=== PATIENT | female | born 1930 | race Caucasian/White ===

== ENCOUNTER 2017-02-05 07:16 | Inpatient (IN) | payer MEDICARE ==
--- NOTE | 2017-01-30 11:13 | HP ---
HISTORY AND PHYSICAL: DATE OF OFFICE VISIT: 01/25/17 DATE OF SURGERY: 02/05/17 SURGEON: Gabby Moon MD. PROCEDURE: Right total knee arthroplasty. CHIEF COMPLAINT: Right knee pain. HISTORY OF PRESENT ILLNESS: Ms. Kyle is an 86-year-old female with complaints of right knee pain. She has failed conservative management and has elected to proceed with a right total knee arthroplasty, which is scheduled for 02/05/[address] Moon. PAST MEDICAL HISTORY: Hypertension and breast cancer. PAST SURGICAL HISTORY: Lumpectomy, cataract removal, urethral stricture surgery , nose surgery, and pyeloplasty. CURRENT MEDICATIONS: 1. Hydrochlorothiazide 12.5 mg every day. 2. Amlodipine 5 mg once a day. 3. Fluticasone propionate nasal spray. 4. Sertraline 50 mg. 5. Multivitamin. 6. Calcium plus vitamin D. 7. PreserVision. 8. Extra Strength Tylenol. 9. Vitamin prn 10. Refresh. 11. Fish oil. 12. L-lysine. 13. Symbicort. 14. Tussin. 15. Bactrim DS. 16. Levocetirizine dihydrochloride 5 mg once a day. ALLERGIES: ASPIRIN, CODEINE, and LISINOPRIL. CODEINE causes nausea. FAMILY HISTORY: Hypertension and cancer. SOCIAL HISTORY: She is an 86-year-old female. She lives alone in a residential house. She does not smoke, use drugs or alcohol. REVIEW OF SYSTEMS: A complete 14-point review of systems was reviewed with the patient, was all negative. PHYSICAL EXAMINATION GENERAL: She is a well developed, well nourished, in no acute distress. She is alert and oriented x3. VITAL SIGNS: She stands 5 feet 6 inches tall, weighs 155 pounds, her blood pressure is 140/88, heart rate 72. HEENT: Normocephalic, atraumatic. NECK: Supple. No palpable lymph nodes. PULMONARY: The lungs are clear to auscultation bilaterally. CARDIO: Regular rate and rhythm. Strong S1 and S2. ABDOMEN: Soft, nontender, nondistended. MUSCULOSKELETAL: Right lower extremity, the skin is intact. There are no open wounds or abrasions. There is a moderate joint effusion. Tenderness over the medial and lateral joint line. 10 to 120 degrees of flexion. Her lower extremity muscle group strengths are intact at 5/5. She has 2+ dorsalis pedis pulses and intact sensation. NEUROLOGIC: Cranial nerves II through XII are intact. ASSESSMENT AND PLAN: Ms. Kyle is an 86-year-old female with complaints of right knee pain. She has failed conservative management and has elected to proceed with a right total knee arthroplasty, which is scheduled for 02/05/[address] Moon discussed the risks and benefits of the surgery at today's visit and all of her questions were answered. She will follow up with Dr. Moon 2 weeks after the surgery. SU RIVERA [id number]/[facility] #: [id number] MTDD
[~2017-02-05 07:16] MED LIST: Buffered Lidocaine 0.9% SYRIN* 5 ML/SYR SYRINGE INTRADERM ONE; Buffered Lidocaine 0.9% SYRIN* 5 ML/SYR SYRINGE ONE; Famotidine IV* 10 MG/ML 2 ML (20 mg) IV ONE; Famotidine IV* 10 MG/ML 2 ML (20 mg) ONE; Levalbuterol 0.63MG/3ML NEB INH ONE; Levalbuterol 1.25MG/0.5ML NEB ONE; NS 0.9% 1000 ML* 1,000 ML IV SCH; ceFAZolin 2 GM PREMIX(*) 2 GM/50 ML BAG IVPB ONE
[2017-02-05] MEDS ORDERED: Morphine PF AMP (0.5MG/ML)* 5 MG/10 ML AMP ONE (07:46)
[2017-02-05] MEDS ORDERED: Bupivacaine 0.5% SDV PF* 30 ML VIAL ONE ×2 (07:46→10:42)
[2017-02-05] MEDS ORDERED: Dexamethasone IV* 4 MG/ML 1 ML (4 MG) ONE (07:46)
[2017-02-05] MEDS ORDERED: KETAMINE HCL* 50 MG/ML 10 ML VIAL ONE (07:46)
[2017-02-05] MEDS ORDERED: Ondansetron INJ* 2 MG/ML VIAL ONE (07:46)
[2017-02-05] MEDS ORDERED: fentaNYL* 50 MCG/ML 2 ML VIAL (100 MCG VIAL) ONE ×2 (07:46→10:14)
[2017-02-05] MEDS ORDERED: Propofol* 10 MG/ML 20 ML BTL IV PUSH ONE (07:46)
[2017-02-05] MEDS ORDERED: Midazolam* 1 MG/ML 5 ML VIAL (5 MG) ONE (07:46)
[2017-02-05] MEDS ORDERED: Lidocaine 2% PF * 5 ML VIAL ONE ×2 (07:46→09:03)
[2017-02-05] MEDS ORDERED: Ketorolac INJ* 30 MG/ML 1 ML VIAL ONE (07:46)
[2017-02-05] MEDS ORDERED: ROPIVACAINE 5 MG/ML 30 ML BTL (0.5%) ONE (09:03)
[2017-02-05] MEDS ORDERED: EPHEDrine (Pressors)* 50 MG/ML VIAL ONE (10:05)
[2017-02-05] MEDS ORDERED: Morphine INJ* 2 MG/ML 1 ML SYRINGE IV PRN (11:00)
[2017-02-05] MEDS ORDERED: Acetaminophen TAB* 325 MG PO PRN (11:00)
[2017-02-05] MEDS ORDERED: Ondansetron INJ* 2 MG/ML VIAL IV PRN (11:00)
[2017-02-05] MEDS ORDERED: Bisacodyl SUPP* 10 MG SUPP PR PRN (11:00)
[2017-02-05] MEDS ORDERED: diPHENhydraMINE IV* 50 MG/ML 1 ml VIAL (BENADRYL) IV PRN (11:00)
[2017-02-05] MEDS ORDERED: Polyethylene Glycol 3350* 17 GM PACKET PO PRN (11:00)
[2017-02-05] MEDS ORDERED: HYDROmorphone* 1 MG/ML 1 ML SYR IV PRN (11:04)
[2017-02-05] MEDS ORDERED: fentaNYL* 50 MCG/ML 2 ML VIAL (100 MCG VIAL) IV PRN (11:04)
[2017-02-05] MEDS ORDERED: DiMENhydriNATE IV* 50 MG/ML VIAL IV PUSH PRN (11:04)
[2017-02-05] MEDS ORDERED: HYDROmorphone* 1 MG/ML 1 ML SYR ONE (11:06)
--- NOTE | 2017-02-05 14:14 | RAD ---
Indication: Right knee arthroplasty. 2 views of the right knee demonstrates bipolar knee arthroplasty in satisfactory position. No loosening is noted. IMPRESSION: Right knee arthroplasty in satisfactory position.
[2017-02-05] MEDS: oxyCODONE/Acetamin 5/325 MG* TAB PO PRN (14:36)
[2017-02-05] MEDS: NS 0.9% 1000 ML* 1,000 ML IV SCH (14:40)
[2017-02-05] MEDS ORDERED: Warfarin TAB(*) 6 MG PO ONE (17:00)
--- NOTE | 2017-02-05 17:18 | CONS ---
[facility] MEDICINE CONSULTATION REPORT: DATE OF CONSULT: 02/05/17 ATTENDING PHYSICIAN: Dr. Gabby Moon. CONSULTING PHYSICIAN: Dr. Moncho Brunner (dictation provided by Pauline Hubbard NP). REASON FOR CONSULT: Medical co-management in patient admitted for a right total knee arthroplasty. HISTORY OF PRESENT ILLNESS: Ms. Kyle is an 86-year-old female with a past medical history of right knee pain with hypertension and breast cancer, who presented to the hospital today for a planned right total knee arthroplasty with Dr. Moon. Please see the dictated H and P from the orthopedic team for complete details. In brief, the patient had failed conservative treatment and had opted for surgical intervention today. Ms. Kyle states that prior to coming into surgery, she was feeling well with no acute complaints. PAST MEDICAL HISTORY: 1. Hypertension. 2. Breast cancer. PAST SURGICAL HISTORY: 1. History of lumpectomy. 2. Cataract removal. 3. Urethral stricture surgery. 4. Nose surgery. 5. Pyeloplasty. CURRENT MEDICATIONS: 1. Hydrochlorothiazide 12.5 mg p.o. every day. 2. Amlodipine 5 mg p.o. daily. 3. Fluticasone nasal spray daily. 4. Sertraline 50 mg p.o. daily. 5. Multivitamin daily. 6. Calcium with vitamin D daily. 7. PreserVision daily. 8. Extra Strength Tylenol p.r.n. 9. Refresh Tears p.r.n. 10. Fish oil daily. 11. L-lysine daily. 12. Symbicort daily. ALLERGIES: To ASPIRIN, CODEINE, and LISINOPRIL. FAMILY HISTORY: The patient reports her mother at 96 of old age and father a little younger than that and I believe that it was related to cancer, although there was no clear diagnosis. SOCIAL HISTORY: The patient lives alone. She has no report of alcohol, tobacco , or drug use. She states that her brother will be the healthcare proxy. REVIEW OF SYSTEMS: A 14-point review of systems was completed with Ms. Kyle and all those not mentioned above were negative. PHYSICAL EXAM: Vital Signs: Temperature 97.5, heart rate 71, respiratory rate 16, O2 saturation 100% on 2 L nasal cannula, blood pressure 160/79. General: Ms. Kyle is lying in bed. She is in no acute distress. Neuro: She is alert, she is oriented x3. She moves all extremities equally. There is no facial asymmetry or focal weakness. Extraocular movements are intact. Heart: S1, S2. No murmur, rub, or gallop, and regular. Lungs are clear to auscultation bilaterally with no accessory muscle use and good aeration. Abdomen: Soft and nontender with bowel sounds positive x4. Extremities: No cyanosis or edema. Skin is intact. LABORATORY DATA: Preoperatively, WBC 4.9, hemoglobin 12.1, hematocrit 36, platelet count 233. Sodium 127, potassium 3.6, chloride 90, serum bicarbonate 31, BUN 16, creatinine 0.79, glucose 104. ASSESSMENT AND PLAN: Ms. Kyle is an 86-year-old female with past medical history of hypertension and breast cancer, who presents today to the hospital for right total knee arthroplasty. Our plans are as follows: 1. Right total knee arthroplasty: Plan is for management per orthopedic services. The patient will have pain medication p.r.n. with a bowel regimen, she will be followed by Physical and Occupational Therapy, and finally we will monitor H and H closely. 2. Hypertension: Plan to continue the patient's home medications of amlodipine and hydrochlorothiazide as her blood pressure has been running systolically 140s to 160s since arrival to the PACU. 3. DVT prophylaxis: With Lovenox or warfarin per Ortho. 4. Disposition: Will be per Ortho. TIME SPENT: Approximately 60 minutes was spent in consultation of this patient , more than half the time spent with the patient at the bedside reviewing the events leading up to this hospitalization, performing the physical examination, and reviewing the plan of care. PAULINE HUBBARD NP [id number]/[facility] #: [id number] ARIANE
[2017-02-05] MEDS: amLODIPine TAB* 5 MG PO SCH (17:57)
[2017-02-05] MEDS: Cetirizine* 10 MG TAB PO SCH (17:57)
[2017-02-05] MEDS: ceFAZolin VIAL(*) 1 GM in NS 0.9% 50 ML* 50 ML IVPB SCH (17:58)
[2017-02-05] MEDS: Mometasone/Formoter 200/5 MDI INH SCH (20:30)
[2017-02-05] MEDS: Sertraline* 25 MG TAB PO SCH (21:15)
[2017-02-05] MEDS: Docusate CAP* 100 MG PO SCH (21:15)
[2017-02-06] MEDS: ceFAZolin VIAL(*) 1 GM in NS 0.9% 50 ML* 50 ML IVPB SCH ×2 (02:07→10:37)
[2017-02-06] MEDS: oxyCODONE/Acetamin 5/325 MG* TAB PO PRN ×4 (04:40→17:00)
[2017-02-06] MEDS: NS 0.9% 1000 ML* 1,000 ML IV SCH (05:10)
[2017-02-06 05:31] LABS: Hematocrit 28 % (35-47); Hemoglobin 9.5 g/dl (12.0-16.0)
[2017-02-06 05:46] LABS: BUN/Creatinine Ratio 19.1 (8-20); Calcium 8.7 mg/dL (8.6-10.3); EGFR African American 77.5 (>60); EGFR Non-African American 60.3 (>60)
--- NOTE | 2017-02-06 07:35 | PN ---
Progress Note - Progress Note Date of Service: 02/06/17 SOAP: Subjective: Pt. is alert, reports pain is controlled. Objective: RLE - drain removed, tip intact, 300 cc ss drainage. distal dressing saturated with serosanginous drainage so dressing changed. mod effusion. active bleeding from drain site. distal incision with some drainage. distally nvi with +df/pf, full sens lt. Vital Signs: Temp Pulse Resp BP Pulse Ox 98.2 F 77 18 136/68 100 02/06/17 03:28 02/06/17 03:28 02/06/17 05:47 02/06/17 03:28 02/06/17 03:28 Laboratory Results - last 24 hr 02/06/17 02/06/17 02/06/17 05:19 05:19 05:19 Hgb 9.5 L Hct 28 L INR (Anticoag Therapy) 0.99 Sodium 130 L Potassium 3.0 L Chloride 96 L Carbon Dioxide 28 Anion Gap 6 BUN 17 Creatinine 0.89 Est GFR ( Amer) 77.5 Est GFR (Non-Af Amer) 60.3 BUN/Creatinine Ratio 19.1 Glucose 107 H Calcium 8.7 Assessment: 86 yo F pod 1 s/p RTKA Plan: hold lovenox for now. 8 mg coumadin tonight. replaced K with kcl 20meg tid for 2 days pt/ot wbat rle xrays satisfactory
[2017-02-06] MEDS: oxyCODONE TAB* 5 MG TAB PO PRN ×3 (08:09→19:34)
[2017-02-06] MEDS: Potassium Chlor TAB* 20 MEQ TAB.ER PO SCH ×3 (08:53→20:13)
[2017-02-06] MEDS: Mometasone/Formoter 200/5 MDI INH SCH ×2 (08:53→20:48)
[2017-02-06] MEDS: Magnesium Hydroxide LIQ* 30 ML UDC PO PRN (08:53)
[2017-02-06] MEDS: Docusate CAP* 100 MG PO SCH ×2 (08:53→20:13)
[2017-02-06 09:23] LABS: Magnesium 1.8 mg/dL (1.9-2.7)
[2017-02-06] MEDS ORDERED: Enoxaparin(*) 30 MG/0.3 ML SYR SUBCUT SCH (11:00)
[2017-02-06] MEDS ORDERED: Magnesium Sulfate 2 GM IV* 2 GM/50 ML BAG IVPB ONE (11:56)
--- NOTE | 2017-02-06 11:58 | OP ---
OPERATIVE REPORT: DATE OF OPERATION: 02/05/17 DATE OF : 32 SURGEON: Gabby Moon MD OFFICE MACHINE PUNCH OPERATOR: SU Fish Ms. Chen did help throughout the procedure with preparation of the leg, wound retraction, manipula tion of the knee and wound closure. ANESTHESIOLOGIST: Dr. Ochoa. ANESTHESIA: General with adductor nerve block. 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 OPERATIVE PROCEDURE: Right total knee arthroplasty. COMPLICATIONS: None. TOURNIQUET TIME: 45 minutes. ESTIMATED BLOOD LOSS: 300 cc. SPECIMEN: Bone and cartilage from the right knee joint sent to pathology. HARDWARE USED: This is [employer] cemented total knee arthroplasty hardware. Two packages of simplex bone cement were used. For the femur, a right narrow size 6 posterior stabilized Legion fem oral component. For the tibia, a size 5 right Ena II tibial baseplate. For the insert, a 9-mm posterior stabilized articular insert, size 5/6. For the patella, a 35-mm, 7.5 thickness 3 peg all poly patella. BRIEF HISTORY/INDICATIONS: Ms. Kyle is an 86-year-old female with years of increasingly severe right knee pain and valgus deformity. She failed conservative treatment with antiinflammatories, pa in medications, ambulatory assistive device, and physical therapy and intraarticular injections. Sh anjali had continued pain and decreased quality of life. She elected to undergo right total knee arthrop lasty due to inability to ambulate. Informed consent was obtained from the patient. She understood the risks of surgery included, but were not limited to bleeding, infection, damage to nearby struct ures, continued pain, need for further surgery, intraoperative fracture, nerve palsy, hardware failu re, loosening, knee stiffness, loss of motion, stroke, heart attack, blood clot, and . She wis hed to proceed. INTRAOPERATIVE FINDINGS: Intraoperatively, the patient was noted to have 12-degree valgus deformity , which was corrected to 5 degree anatomic valgus at the end of the case. She had a 10-degree flexi on contracture and 125 degrees of flexion. Postop range of motion was full extension, to 130 degree s of flexion. Throughout the case, she was noted to have significant osteopenia. She had complete loss of cartilage in all three compartments. 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 DESCRIPTION OF PROCEDURE: Ms. Kyle was identified in the preanesthesia unit. Her right lower ex tremity was marked as the correct operative side. Informed consent was signed and placed in the [facility] rt. The patient was taken to the operating room and placed under general anesthesia with an adducto r nerve block. A Ramirez catheter was placed. Tourniquet was placed on the right high. Right lower extremity was prepped and draped in the usual sterile fashion. Preop time-out was made to correctly identify the patient, side and site. Appropriate perioperative antibiotics were given within one ho ur of incision. Tourniquet was inflated until the tourniquet time for this procedure was 45 minutes. A 12-cm midlin e incision was made with a 10 blade and carried down to the extensor mechanism. A new 10 blade was used to make a standard medial parapatellar arthrotomy. The patella was subluxed laterally. Electr ocautery was used to subperiosteally elevate soft tissue off the superomedial tibia to the mid sagit lorena plane. The knee was flexed up. The anterior horn of the lateral meniscus and ACL were sharply excised. A drill was used to enter the distal femur. Intramedullary distal femoral cutting jig was pinned on the distal femur. Lateral femoral condylar hypoplasia was noted and accounted for. Osci llating saw was used to make the distal femoral cut. Next, the external rotation guide was placed o n the distal femur and the distal femur was sized to a size 6. Size 6 multi-cutting jig was pinned on the distal femur. The appropriate 4 chamfer cuts were made. Next, the PCL was completely releas ed. The tibia was subluxed anteriorly. Extramedullary tibial cutting guide was placed on the proxi mal tibia. Oscillating saw was used to make the appropriate proximal tibial cut perpendicular to th e mechanical access of the tibia. The bone was carefully removed. The knee was brought out to full extension. The spacer block had good fit with the knee in full ext ension. Medial and lateral ligaments were well balanced. Overall alignment improved to 25 degrees of anatomic valgus. The knee was flexed up. Lamina music education director was placed both medially and laterally. Any remaining menis cus was carefully removed with electrocautery. Any posterior osteophytes were carefully removed. A tibial tray and drop fernando once again confirmed satisfactory tibial cut. A trial size 6 narrow right femur was impacted on to the distal femur. The box for the posterior stabilized implant was prepar ed using a reamer and box-cut osteotome. Size 5 tibial tray and 9 mm insert trial was placed and th e knee was taken through the range of motion. The knee had full extension to 130 degrees of flexion with good patellofemoral tracking. The patella was everted. 8 mm of patellar bone and cartilage were carefully removed with an oscilla ting saw. The patella was sized to a size 35. Three pegs were drilled through the size 35 guide. A 7.5 thickness 35 trial patella was chosen. This was placed on the patella and the knee was taken through range of motion. There was good patellofemoral tracking. All trials were carefully removed. Tibia was subluxed anteriorly and sized to a size 5. Proximal t ibia was prepared using a size 5 keel punch. All bony cut surfaces were copiously irrigated with st erile saline and dried. Final implants were cemented into place, starting with the tibia followed b y the femur, and lastly the patella. An 9-mm insert trial was placed while the knee was brought out to full extension. The cement was allowed to fully cured and the tourniquet was turned down at 45 minutes. The knee was copiously irrigated with sterile saline. Once the cement had fully cured, the insert trial was removed. Any excess cement was carefully removed from around the capsule and impl ant. Electrocautery was used to obtain meticulous hemostasis. Final insert chosen was 9-mm posteri or stabilized articular insert size 5/6. This was impacted on to the tibial tray and locked into po sition. Stability of the insert was checked and rechecked and noted to be stable. Final range of motion with full extension to 130 degrees of flexion. The knee was copiously irrigat ed with sterile saline. The extensor mechanism was closed using interrupted #1 Vicryls over a mediu m Hemovac drain. The rest of the incision was closed in a layered fashion using 0 and 2-0 Vicryls. The skin was closed using running 3-0 nylon suture. Xeroform, 4x4s, and Webril were used to cover the incision. Anuel wrap and cold pack were placed over this. The patient's anesthesia was reversed without difficulty. She was taken to the PACU in stable condi tion. Intended weightbearing will be weightbearing as tolerated. Intended DVT prophylaxis will be Coumadin with a Lovenox bridge. [id number]/[facility] #: [id number]
--- NOTE | 2017-02-06 15:44 | PN ---
Subjective Date of Service: 02/06/17 Interval History: This is an 86 yo female with HTN who is s/p TKA with Dr Moon yesterday. She has tolerated surgery quite well. She reports good pain control. She had one episode of vomiting earlier today, but no nausea since. No CP, cough or SOB. Objective Active Medications: Acetaminophen (Tylenol Tab*) 650 mg PO Q4H PRN PRN Reason: PAIN OR TEMPERATURE Amlodipine Besylate (Norvasc Tab*) 2.5 mg PO QPM [facility] Last Admin: 02/05/17 17:57 Dose: 2.5 mg Bisacodyl (Dulcolax Supp*) 10 mg MO DAILY PRN PRN Reason: constipation Cetirizine HCl (Zyrtec*) 10 mg PO QPM [facility] Last Admin: 02/05/17 17:57 Dose: 10 mg Diphenhydramine HCl (Benadryl Iv*) 12.5 mg IV Q6H PRN PRN Reason: PRURITIS Docusate Sodium (Colace Cap*) 100 mg PO BID [facility] Last Admin: 02/06/17 08:53 Dose: 100 mg Sodium Chloride (Ns 0.9% 1000 Ml*) 1,000 mls @ 75 mls/hr IV PER RATE [facility] Last Admin: 02/06/17 05:10 Dose: 75 mls/hr Lactulose (Lactulose*) 30 ml PO Q6H PRN PRN Reason: constipation Magnesium Hydroxide (Milk Of Magnesia Liq*) 30 ml PO Q6H PRN PRN Reason: constipation Last Admin: 02/06/17 08:53 Dose: 30 ml Mometasone Furoate/Formoterol Fumar (Dulera 200/5 Mdi*) 2 puff INH BID [facility] PRN Reason: Protocol Last Admin: 02/06/17 08:53 Dose: 2 puff Morphine Sulfate (Morphine Inj (Syringe)*) 2 mg IV Q2H PRN PRN Reason: PAIN Ondansetron HCl (Zofran Inj*) 4 mg IV Q6H PRN PRN Reason: nausea Oxycodone HCl (Roxycodone Tab*) 10 mg PO Q4H PRN PRN Reason: SEVERE PAIN Last Admin: 02/06/17 14:27 Dose: 10 mg Oxycodone/Acetaminophen (Percocet 5/325 Tab*) 1 tab PO Q3H PRN PRN Reason: PAIN - MODERATE Last Admin: 02/06/17 04:40 Dose: 1 tab Oxycodone/Acetaminophen (Percocet 5/325 Tab*) 2 tab PO Q3H PRN PRN Reason: PAIN - MODERATE Last Admin: 02/06/17 11:22 Dose: 2 tab Pharmacy Profile Note (Coumadin Daily Reminder*) 1 note FOLLOW UP 1700 GINI Polyethylene Glycol/Electrolytes (Miralax*) 17 gm PO DAILY PRN PRN Reason: Constipation Potassium Chloride (Klor Con Er Tab*) 20 meq PO TID GINI Last Admin: 02/06/17 14:21 Dose: 20 meq Sertraline HCl (Zoloft*) 25 mg PO BEDTIME [facility] Last Admin: 02/05/17 21:15 Dose: 25 mg Warfarin Sodium (Coumadin Tab(*)) 8 mg PO ONCE@1700 ONE PRN Reason: Protocol Stop: 02/06/17 17:01 Vital Signs: Temp Pulse Resp BP Pulse Ox 97.7 F 70 18 128/46 99 02/06/17 11:48 02/06/17 11:48 02/06/17 14:27 02/06/17 11:48 02/06/17 11:48 Oxygen Devices in Use Now: None Appearance: Well appearing elderly female in NAD Respiratory: Symmetrical Chest Expansion and Respiratory Effort, Clear to Auscultation Cardiovascular: NL Sounds; No Murmurs; No JVD, RRR Abdominal: NL Sounds; No Tenderness; No Distention Extremities: - - R knee dressing in place, trace LE edema Skin: No Rash or Ulcers Neurological: Alert and Oriented x 3 Result Diagrams: 02/06/17 05:19 02/06/17 05:19 Assess/Plan/Problems-Billing Assessment: This is an 86 yo female with HTN and remote h/o BCA who underwent R TKA with Dr Moon 02/05. Hospitalist team has been asked to consult for medical co- management. - Patient Problems (1) Status post total knee replacement Comment: POD #1 Post-operative management per ortho team (2) Hyponatremia Comment: Cont NS, repeat BMP in am (3) Hypokalemia Comment: Replacing orally Repeat BMP in am (4) Hypomagnesemia Comment: Repleting, repeat labs in am (5) Hypertension Comment: Normotensive, cont amlodipine Hold HCTZ in setting of hyponatremia (6) DVT prophylaxis Comment: Coumadin per ortho team Lovenox held due to excessive drainage Status and Disposition: Inpatient. Dispo per ortho with plans for dc to [facility] tomorrow. Hospitalists to continue to follow along
[2017-02-06] MEDS: amLODIPine TAB* 5 MG PO SCH (16:59)
[2017-02-06] MEDS: Cetirizine* 10 MG TAB PO SCH (17:00)
[2017-02-06] MEDS ORDERED: Warfarin TAB(*) 4 MG PO ONE (17:00)
[2017-02-06] MEDS: Sertraline* 25 MG TAB PO SCH (20:13)
[2017-02-07] MEDS: oxyCODONE/Acetamin 5/325 MG* TAB PO PRN ×2 (00:16→09:10)
[2017-02-07] MEDS: oxyCODONE TAB* 5 MG TAB PO PRN (03:28)
[2017-02-07 05:54] LABS: Hematocrit 25 % (35-47); Hemoglobin 8.4 g/dl (12.0-16.0)
[2017-02-07 06:11] LABS: BUN/Creatinine Ratio 20.5 (8-20); Calcium 8.7 mg/dL (8.6-10.3); EGFR Non-African American 65.3 (>60); Magnesium 2.3 mg/dL (1.9-2.7); Potassium 4.5 mmol/L (3.5-5.0)
--- NOTE | 2017-02-07 07:38 | PN ---
Progress Note - Progress Note Date of Service: 02/07/17 SOAP: Subjective: POD #2 Right TKA. Doing well, c/o some pain but controlled with meds. Denies dizziness, lightheadedness, CP/SOB or calf pain Objective: Vitals: Temp Pulse Resp BP Pulse Ox 98.2 F 70 18 127/54 99 02/07/17 03:56 02/07/17 03:56 02/07/17 05:28 02/07/17 03:56 02/07/17 03:56 Gen: A&O x3, NAD at rest sitting in chair RLE: Incision C/D/I, mild edema and ecchymosis, no erythema. +f/e at ankle, MTPs , N/V intact Labs: Laboratory Results - last 24 hr 02/06/17 02/07/17 02/07/17 05:19 05:47 05:47 Hgb 8.4 L Hct 25 L INR (Anticoag Therapy) 1.10 Sodium Potassium Chloride Carbon Dioxide Anion Gap BUN Creatinine Est GFR ( Amer) Est GFR (Non-Af Amer) BUN/Creatinine Ratio Glucose Calcium Magnesium 1.8 L 02/07/17 05:47 Hgb Hct INR (Anticoag Therapy) Sodium 124 L Potassium 4.5 D Chloride 95 L Carbon Dioxide 26 Anion Gap 3 BUN 17 Creatinine 0.83 Est GFR ( Amer) 84.0 Est GFR (Non-Af Amer) 65.3 BUN/Creatinine Ratio 20.5 H Glucose 117 H Calcium 8.7 Magnesium 2.3 Assessment: POD #2 Right TKA Plan: D/C to [facility] today, continue Coumadin for DVT ppx Acute blood loss anemia, pt without symptoms at this time, no further drainage from incision - will continue to monitor F/u with Dr. Moon upon d/c from [facility]
[2017-02-07] MEDS ORDERED: Furosemide IV* 10 MG/ML 2 ML VIAL (20 MG) IV ONE (07:39)
[2017-02-07 07:52] VITALS: BP 128/55
[2017-02-07] MEDS: Mometasone/Formoter 200/5 MDI INH SCH (08:13)
[2017-02-07] MEDS: Magnesium Hydroxide LIQ* 30 ML UDC PO PRN (09:10)
[2017-02-07] MEDS: Docusate CAP* 100 MG PO SCH (09:10)
--- NOTE | 2017-02-07 10:30 | PN ---
Subjective Date of Service: 02/07/17 Interval History: Patient reports that she is not feeling entirely well this am. She feels that her head is in a "fog". She had some brief nausea, but no vomiting. Pain is well controlled. No cough or SOB. No abd pain. No BM since surgery Objective Active Medications: Acetaminophen (Tylenol Tab*) 650 mg PO Q4H PRN PRN Reason: PAIN OR TEMPERATURE Amlodipine Besylate (Norvasc Tab*) 2.5 mg PO QPM [facility] Last Admin: 02/06/17 16:59 Dose: 2.5 mg Bisacodyl (Dulcolax Supp*) 10 mg NE DAILY PRN PRN Reason: constipation Cetirizine HCl (Zyrtec*) 10 mg PO QPM [facility] Last Admin: 02/06/17 17:00 Dose: 10 mg Diphenhydramine HCl (Benadryl Iv*) 12.5 mg IV Q6H PRN PRN Reason: PRURITIS Docusate Sodium (Colace Cap*) 100 mg PO BID [facility] Last Admin: 02/07/17 09:10 Dose: 100 mg Lactulose (Lactulose*) 30 ml PO Q6H PRN PRN Reason: constipation Magnesium Hydroxide (Milk Of Magnesia Liq*) 30 ml PO Q6H PRN PRN Reason: constipation Last Admin: 02/07/17 09:10 Dose: 30 ml Mometasone Furoate/Formoterol Fumar (Dulera 200/5 Mdi*) 2 puff INH BID [facility] PRN Reason: Protocol Last Admin: 02/07/17 08:13 Dose: 2 puff Morphine Sulfate (Morphine Inj (Syringe)*) 2 mg IV Q2H PRN PRN Reason: PAIN Ondansetron HCl (Zofran Inj*) 4 mg IV Q6H PRN PRN Reason: nausea Oxycodone HCl (Roxycodone Tab*) 10 mg PO Q4H PRN PRN Reason: SEVERE PAIN Last Admin: 02/07/17 03:28 Dose: 10 mg Oxycodone/Acetaminophen (Percocet 5/325 Tab*) 1 tab PO Q3H PRN PRN Reason: PAIN - MODERATE Last Admin: 02/06/17 04:40 Dose: 1 tab Oxycodone/Acetaminophen (Percocet 5/325 Tab*) 2 tab PO Q3H PRN PRN Reason: PAIN - MODERATE Last Admin: 02/07/17 09:10 Dose: 2 tab Pharmacy Profile Note (Coumadin Daily Reminder*) 1 note FOLLOW UP 1700 [facility] Last Admin: 02/06/17 17:02 Dose: 1 note Polyethylene Glycol/Electrolytes (Miralax*) 17 gm PO DAILY PRN PRN Reason: Constipation Sertraline HCl (Zoloft*) 25 mg PO BEDTIME [facility] Last Admin: 02/06/17 20:13 Dose: 25 mg Vital Signs: Temp Pulse Resp BP Pulse Ox 97.9 F 75 18 128/55 99 02/07/17 07:17 02/07/17 07:17 02/07/17 09:10 02/07/17 07:17 02/07/17 07:17 Oxygen Devices in Use Now: None Appearance: Mildly ill appearing elderly female, accompanied by family Respiratory: Symmetrical Chest Expansion and Respiratory Effort, Clear to Auscultation Cardiovascular: NL Sounds; No Murmurs; No JVD, RRR Abdominal: NL Sounds; No Tenderness; No Distention Extremities: - - trace RLE edema Neurological: Alert and Oriented x 3 Result Diagrams: 02/07/17 05:47 02/07/17 05:47 Assess/Plan/Problems-Billing Assessment: This is an 86 yo female with HTN and remote h/o BCA who underwent R TKA with Dr Moon 02/05. Hospitalist team has been asked to consult for medical co- management. - Patient Problems (1) Status post total knee replacement Comment: POD #2 Post-operative management per ortho team Plan for discharge to [facility] (2) Hyponatremia Comment: Unfortunately, Na dropped overnight Based on her response to NS, she is likely slightly hypervolemic or has mild SIADH following surgery Review of old lab records show she has some mild hyponatremia chronically Ordered NS to stop and 20mg IV Lasix this am with repeat BMP this afternoon Recommend daily monitoring and she may require some fluid restriction or further doses of Lasix (3) Hypokalemia Comment: Repleted (4) Hypomagnesemia Comment: Repleted (5) Hypertension Comment: Normotensive, cont amlodipine Hold HCTZ in setting of hyponatremia (6) DVT prophylaxis Comment: Coumadin per ortho team Lovenox held due to excessive drainage Status and Disposition: Inpatient. Dispo per ortho with plans for dc to [facility] today. Please see above recommendations regarding management and monitoring of her sodium.
--- NOTE | 2017-02-07 16:03 | DS ---
DISCHARGE SUMMARY: DATE OF ADMISSION: 02/05/17 DATE OF DISCHARGE: 02/07/17 PROVIDER: Gabby Moon MD ADMITTING DIAGNOSIS: Severe endstage osteoarthritis of the right knee. DISCHARGE DIAGNOSIS: Severe endstage osteoarthritis of the right knee, status post right total knee arthroplasty. SECONDARY DIAGNOSES: Hypertension and remote history of breast cancer. HISTORY OF PRESENT ILLNESS: Ms. Kyle is an 86-year-old female who had ongoing complaints of rig ht knee pain and failed conservative management. She elected to proceed with a right total knee art hroplasty. On hospital course on 02/05/17 the patient was admitted to [facility] and und erwent a successful right total knee arthroplasty. She recovered briefly in postanesthesia care [facility] and was transferred to the short-stay surgical unit in stable condition. On postop day 1, the pat ient had some acute blood loss anemia with H and H of 9.5 and 28. INR of 0.99 with 6 mg Coumadin p reviously. The patient did have some bleeding to her dressing and had to be reinforced multiple mari es. She was able to participate in physical therapy and pain was well controlled with oral and IV p ain medication. On postop day 2, the patient continued to have some blood loss anemia with H and H of 8.4 and 25. Lovenox was held due to the on going drainage from the incision. INR 1.10 with 8 mg previously. The patient has remained asymptomatic and had no dizziness, lightheadedness, chest elke n, or shortness of breath. Her vital signs remained stable. She has not been tachycardiac or hyper tensive. Hospitalist was consulted for comanagement of medical conditions. The patient does have some hyponatremia for which she is getting normal saline. She also had some hypokalemia which was r epleted orally as well. On postop day 2, the patient was found stable on orthopedic standpoint to b e transferred to [facility]. DISCHARGE MEDICATIONS: We will continue with: 1. Percocet 5/325 1 to 2 tabs p.o. q. 4 to 6 hours p.r.n. pain. 2. Colace 100 mg p.o. b.i.d. 3. Milk of magnesia 30 mL p.o. q. 6 hours p.r.n. 4. MiraLAX 17 g p.o. daily p.r.n. 5. Coumadin daily for an INR of 2 to 2.5. She will resume her home medications of: 1. Amlodipine 2.5 mg p.o. q.p.m. 2. Zoloft 25 mg p.o. q.h.s. 3. Multivitamin 1 tab p.o. daily. 4. Lysine 500 mg p.o. monthly as needed. 5. Xyzal 5 mg p.o. q.p.m. 6. Hydrochlorothiazide 25 mg p.o. q.a.m. 7. Hydroxyzine 25 mg p.o. daily p.r.n. 8. Fluticasone nasal spray 1 spray both nares q.p.m. 9. Refresh eye drops one drop to both eyes t.i.d. 10. Calcium plus D 1 tab p.o. q.a.m. 11. Symbicort 2 puffs inhaled b.i.d. The patient will follow up with Dr. Moon upon discharge from [facility]. She will continue with dry dres sing changes daily. She may shower normally on postop day 4 with dry dressing applied after that. She is understanding, upon discharge from [facility], to call the office with any problems or concern; to go directly to the emergency room with any chest pain, shortness of breath, fever greater than 101. 5, calf pain or swelling. SU MOORE [id number]/[facility] #: [id number]
== END 2017-02-07 10:37 | DRG 470 ==
LOC: AA 07:16 → SSU 11:00
PROVIDERS: ADMIT Orthopaedic Surgery Adult Reconstructive Orthopaedic Surgery; ATTEND Orthopaedic Surgery Adult Reconstructive Orthopaedic Surgery
PROC: 0SRC0J9 Replacement of Right Knee Joint with Synthetic Substitute, Cemented, Open Approach (ICD-10-PCS; principal; 2017-02-05 09:00)
DX: M17.11 Unilateral primary osteoarthritis, right knee (principal); I10 Essential (primary) hypertension; F32.9 Major depressive disorder, single episode, unspecified; M21.061 Valgus deformity, not elsewhere classified, right knee; E87.1 Hypo-osmolality and hyponatremia; E87.6 Hypokalemia; E83.42 Hypomagnesemia; D62 Acute posthemorrhagic anemia; Z79.01 Long term (current) use of anticoagulants; Z88.5 Allergy status to narcotic agent; Z85.3 Personal history of malignant neoplasm of breast; Z88.8 Allergy status to other drugs, medicaments and biological substances; Z98.49 Cataract extraction status, unspecified eye; Z82.49 Family history of ischemic heart disease and other diseases of the circulatory system; Z80.9 Family history of malignant neoplasm, unspecified
CPT/HCPCS: 36415; 80048; 83735; 85014; 85018; 85610; 94640; 94760; A9270-GY; C1776; J0690; J1100; J1170; J1885; J1940; J2250; J2405; J2704; J2795; J3010

== ENCOUNTER 2017-02-07 07:47 | Inpatient (IN) | payer MEDICARE ==
[2017-02-07] MEDS ORDERED: Senna TAB PO PRN (12:59)
[2017-02-07] MEDS ORDERED: Acetaminophen TAB* 325 MG PO PRN (12:59)
[2017-02-07] MEDS: Potassium Chlor TAB* 20 MEQ TAB.ER PO SCH ×2 (15:19→20:23)
[2017-02-07] MEDS: oxyCODONE/Acetamin 5/325 MG* TAB PO PRN ×2 (15:53→20:22)
[2017-02-07] MEDS: Cetirizine* 10 MG TAB PO SCH (16:58)
[2017-02-07] MEDS: Warfarin TAB(*) 2.5 MG PO SCH (16:59)
[2017-02-07] MEDS: amLODIPine TAB* 5 MG PO SCH (16:59)
[2017-02-07] MEDS: Mometasone/Formoter 200/5 MDI INH SCH (20:06)
[2017-02-07] MEDS: Sertraline* 25 MG TAB PO SCH (20:21)
[2017-02-07] MEDS: Docusate CAP* 100 MG PO SCH (20:21)
[2017-02-08] MEDS: oxyCODONE/Acetamin 5/325 MG* TAB PO PRN ×4 (00:10→19:59)
--- NOTE | 2017-02-08 01:31 | HP ---
HISTORY AND PHYSICAL: DATE OF ADMISSION: 02/07/17 REASON FOR ADMISSION: Right total knee replacement. HISTORY OF PRESENT ILLNESS: Nevin Kyle is an 86-year-old white female. She has a medical history significant for hypertension and breast cancer. The patient had significant pain in her right knee. It had failed conservative treatment. She sought treatment with Dr. Gabby Moon. X-rays were taken, which showed severe end-stage degenerative arthritis. It was decided that the best course of action would be for her to have a right total knee replacement. She was admitted to [facility] on 02/05/17 and underwent a total knee replacement that day. Postoperatively, she was started on Coumadin. She did have anemia, but was not transfused. The patient was felt to have physical therapy and occupational therapy needs. She is now being admitted for inpatient rehab so that she might return to independent living. PAST MEDICAL HISTORY: Significant for the aforementioned hypertension as well as breast cancer. CURRENT MEDICATIONS: Include: 1. Zyrtec. 2. Norvasc. 3. Dulera inhaler instead of her usual Symbicort. 4. Percocet for pain control. 5. She is on potassium supplementations. 6. Coumadin for DVT prophylaxis. 7. Zoloft. ALLERGIES: Include ASPIRIN, CODEINE, LISINOPRIL. SOCIAL HISTORY: She is a nonsmoker, nondrinker. She recently moved to [facility] and lives in a one-[address] apartment there. She has a brother who lives in the area. REVIEW OF SYSTEMS: The patient reports no current shortness of breath or chest pain. PHYSICAL EXAMINATION VITAL SIGNS: The patient's temperature is 98.2, blood pressure is 131/57, pulse 79, respirations 12. HEENT: Her extraocular movements are intact. Tongue is midline. NECK: Supple. LUNGS: Sounded clear to auscultation bilaterally. HEART: Sounds are regular. S1 and S2 are audible. ABDOMEN: Soft and nontender. EXTREMITIES: Her right knee has a wound, which is clean and dry. Peripheral pulses are intact. NEUROLOGIC: She is awake, alert, oriented and muscle strength is 5/5 in both upper and lower extremities except the right lower extremity, which is 3/5 secondary to pain. She can dorsiflex the right foot without difficulty. FUNCTIONAL EXAM: The patient transfers with contact guard to min assist. ASSESSMENT: Right total knee replacement in an 86-year-old female. PLAN: Integrate her into a comprehensive and therapeutic rehab program with the following goals. 1. Physical Therapy will see the patient. They are going to work on functional transfer training, ambulation training with a walker. 2. Occupational Therapy will see the patient, work on her activities of daily living including toileting and toilet transfers. 3. Coumadin for DVT prophylaxis. 4. Adequate analgesia. 5. Her bowels will be regulated. 6. care services manager will be closely involved to make sure that any services and equipment the patient requires are in place prior to discharge. 7. Advanced directives: The patient is a full code. 8. Family training as appropriate. 9. Home with appropriate services. ESTIMATED LENGTH OF STAY: 7 to 10 days. [id number]/[facility] #: [id number] MTDD
[2017-02-08] MEDS: Docusate CAP* 100 MG PO SCH ×2 (08:12→19:59)
[2017-02-08] MEDS: Magnesium Hydroxide LIQ* 30 ML UDC PO PRN (08:12)
[2017-02-08] MEDS: Potassium Chlor TAB* 20 MEQ TAB.ER PO SCH (08:12)
[2017-02-08] MEDS: Mometasone/Formoter 200/5 MDI INH SCH ×2 (08:13→20:00)
[2017-02-08 09:09] LABS: Hematocrit 27 % (35-47); Hemoglobin 8.9 g/dl (12.0-16.0); Mean Corpuscular HGB Conc 33 g/dl (31-36); Mean Corpuscular Hemoglobin 29 pg (27-31); Mean Corpuscular Volume 88 fL (80-97); Mean Platelet Volume 7 um3 (7.4-10.4); Red Blood Count 3.07 10^6/ul (4.0-5.4); Red Cell Distribution Width 15 % (10.5-15); White Blood Count 6.3 10^3/ul (3.5-10.8)
[2017-02-08 09:21] LABS: Albumin 3.2 g/dL (3.2-5.2); BUN/Creatinine Ratio 17.1 (8-20); Calcium 8.8 mg/dL (8.6-10.3); EGFR African American 85.2 (>60); EGFR Non-African American 66.3 (>60); Globulin 2.6 g/dL (2-4); Potassium 4.6 mmol/L (3.5-5.0); Total Bilirubin 0.5 mg/dL (0.2-1.0); Total Protein 5.8 g/dL (6.4-8.9)
--- NOTE | 2017-02-08 12:37 | PMRUTEAM ---
PMRU: Goals Current Status: Nursing: Current Status Skin Deviations [Buttocks] Other Skin Deviations [Right Knee] Incision Skin Deviation Description [ red, blanchable, lotion in place Buttocks] Skin Deviation Description [ intact with small amount bloody drainage distally. Right Knee] patient showered with OT and new drsg consisting of , telfa, 4x4's, maria esther x2 and nahum wrap x1 applied. Physical Therapy: Current Status Bed Mobility Assistance Min Assist Transfer Moblility Assistance Contact Guard Assist Transfer/Bed Mobility Rolling Walker Recommended Devices Ambulation Assistance Contact Guard Assist Ambulation Assistive Devices Rolling Walker Number of Feet Patient 60 Ambulated Stairs Assistance Supervision Stairs Recommended Devices One Rail Number of Stairs 3 Occupational Therapy: Current Status Upper Body Dressing Supervision Lower Body Dressing Min Assist,Mod Assist Lower Body Dressing Progress min-mod A for socks/shoes. Bathing Min Assist Bathing Progress UB bathing-S; LB bathing- min A for washing R foot . Toileting Min Assist Toilet Transfer Min Assist Shower Transfer Min Assist Shower Transfer Progress roll in shower Eating Independent Instrumental ADL Dependent for IADLs. Rec Therapy: Current Status Summary of Assessment and Pt. was in bed, open to conversation and engaged Clinical Impression throughout. Pt. identified with leisure interests , regular involvement in them and states she enjoys her life. Pt. was open to continued leisure visits. Leisure material (Cross [employer] puzzles) were provided to patient to complete during free- time. Treatment Goals Pt. will engage in leisure activities while on the unit. Treatment Plan Provide RT services and encourage involvement. Social Work: Current Status Discharge Plan return home to [facility] with home care svs and family support Potential for Family Training TBD Anticipated Discharge Home Destination Discharge With home care svs and family support Goals: Physical Therapy: Initial Goals Bed Mobility Assistance Independent Transfer Mobility Assistance Independent Transfer/Bed Mobility Rolling Walker Recommended Devices Ambulation Independent Ambulation Recommended Devices Rolling Walker Ambulation Distance 150 Stairs Assistance Independent Stair Recommended Devices One Rail Number of Stairs 3 Physical Therapy: Updated Goals Transfer/Bed Mobility Rolling Walker Recommended Devices Occupational Therapy: Initial Goals Goals to be Completed in (Days 7-10 ) Upper Body Bathing Routine Independent Lower Body Bathing Routine Modified Independent with Upper Body Dressing Routine Independent Lower Body Dressing Routine Modified Independent with Toilet Hygeine and Clothing Modified Independent with Management Routine Toilet Transfer Routine Modified Independent with Step-In Shower Transfer Modified Independent with Routine Tub Transfer Routine Modified Independent with Functional Transfers for ADL Modified Independent with Grooming Routine Independent Feeding Routine Independent Light Housekeeping Tasks Modified Independent with Social Work: Goals Discharge Plan return home to [facility] with home care svs and family support Potential for Family Training TBD Anticipated Discharge Home Destination Discharge With home care svs and family support Care Plan: Care Plan DVT Prophylaxis- Improve/Maintain Start: 02/07/17 18:56 Freq: QSHIFT Status: Active Target: Activity Type Activity Date Activity User E-Sign Co-Sign Detail Recorded Client Recorded Date Recorded By Document 02/08/17 09:31 [id number] 02/08/17 09:32 [id number] 02/08/17 09:31 [facility] Outcome: DVT Prophylaxis Outcome/Goals Remains Free of DVT Complies with DVT Prophylaxis /Treatment TEDS Stockings on Every AM, Off at HS Progression Toward Outcome/Goals Progressing Discharge Planning - Improve/Maintain Start: 02/07/17 18:56 Freq: QSHIFT Status: Active Target: Activity Type Activity Date Activity User E-Sign Co-Sign Detail Recorded Client Recorded Date Recorded By Document 02/08/17 01:59 [id number] 02/08/17 02:00 [id number] 02/08/17 01:59 [facility] Outcome: Discharge Planning Update Patient Family No Outcome/Goals Demonstrates Understanding of Discharge Plan Education-Improve/Maintain Start: 02/07/17 18:56 Freq: QSHIFT Status: Active Target: Activity Type Activity Date Activity User E-Sign Co-Sign Detail Recorded Client Recorded Date Recorded By Document 02/08/17 01:59 [id number] 02/08/17 02:00 [id number] 02/08/17 01:59 [facility] Outcome: Education Outcome/Goals Demonstrate/ Verbalize Understanding of Written Discharge Instructions Demonstrates Skills Encourage Questions Progression Toward Outcome/Goals Progressing Mobility- Improve/Maintain Start: 02/07/17 12:37 Freq: QSHIFT Status: Active Target: Activity Type Activity Date Activity User E-Sign Co-Sign Detail Recorded Client Recorded Date Recorded By Document 02/07/17 15:17 [email or web address] 02/07/17 15:17 [id number] 02/07/17 15:17 PMRU Outcome: Mobility Physical Therapy Evaluation and Yes Treatment Activity OOB with Assistance Yes WBAT Yes NWB No TTWB No Device Yes: rolling walker Assistance Yes: cga Patient to be seen 5x/wk for 60-120 min/ Therex day for: Mobility Training Gait Training Outcome/Goals Maintain/ Achieve Baseline Mobility Status Improve Mobility Status Demonstrates Proper Use of Assistive Devices Free from Complications of Immobility Progression Toward Outcome/Goals Progressing Bed Mobility Yes: independent Transfers Yes: mod independent Gait x ft Yes: 150ft with rolling walker independent W/C Mobility x ft No Up/Down Stairs Yes: 3 independent With HEP Yes Pain/Comfort- Improve/Maintain Start: 02/07/17 18:56 Freq: QSHIFT Status: Active Target: Activity Type Activity Date Activity User E-Sign Co-Sign Detail Recorded Client Recorded Date Recorded By Document 02/08/17 09:31 [id number] 02/08/17 09:32 [id number] 02/08/17 09:31 PMRU Outcome: Pain/Comfort Outcome/Goals Demonstrates Knowledge and Use of Available Comfort Measures Maintain Comfort Level Allowing Patient to Fully Participate in Rehab Progression Toward Outcome/Goals Progressing Safety- Improve/Maintain Start: 02/07/17 18:56 Freq: QSHIFT Status: Active Target: Activity Type Activity Date Activity User E-Sign Co-Sign Detail Recorded Client Recorded Date Recorded By Document 02/08/17 09:31 [id number] 02/08/17 09:32 [id number] 02/08/17 09:31 PMRU Outcome: Safety Outcome/Goals Remain Free of Injury or Harm Cooperates with Safety Measures for Least Restrictive Environment Progression Toward Outcome/Goals Progressing Skin- Improve/Maintain Start: 02/07/17 18:56 Freq: QSHIFT Status: Active Target: Activity Type Activity Date Activity User E-Sign Co-Sign Detail Recorded Client Recorded Date Recorded By Document 02/08/17 09:31 [id number] 02/08/17 09:32 [id number] 02/08/17 09:31 PMRU Outcome: Skin Skin Risk Level Medium Skin Orders Dressing Change Heels Off Bed Outcome/Goals Maintain/ Improve Skin Intergrity Surgical Incisions Healing Progression Toward Outcome/Goals Progressing Medicine Note: Length of Stay: 1 week Anticipated Discharge Destination: Home Tentative Discharge Date: 02/15/17 Discharged to: Home
[2017-02-08] MEDS: Cetirizine* 10 MG TAB PO SCH (17:28)
[2017-02-08] MEDS: Warfarin TAB(*) 2.5 MG PO SCH (17:28)
[2017-02-08] MEDS: amLODIPine TAB* 5 MG PO SCH (17:29)
[2017-02-08] MEDS: Sertraline* 25 MG TAB PO SCH (19:59)
[2017-02-09] MEDS: oxyCODONE/Acetamin 5/325 MG* TAB PO PRN ×4 (01:57→21:46)
[2017-02-09] MEDS: Potassium Chlor TAB* 20 MEQ TAB.ER PO SCH (09:14)
[2017-02-09] MEDS: Docusate CAP* 100 MG PO SCH ×2 (09:14→21:36)
[2017-02-09] MEDS: Mometasone/Formoter 200/5 MDI INH SCH ×2 (09:15→21:34)
[2017-02-09] MEDS: Warfarin TAB(*) 4 MG PO SCH (17:41)
[2017-02-09] MEDS: Cetirizine* 10 MG TAB PO SCH (17:41)
[2017-02-09] MEDS: amLODIPine TAB* 5 MG PO SCH (17:41)
[2017-02-09] MEDS: Senna TAB PO SCH (21:35)
[2017-02-09] MEDS: Sertraline* 25 MG TAB PO SCH (21:37)
[2017-02-10] MEDS: Mometasone/Formoter 200/5 MDI INH SCH ×2 (08:57→22:02)
[2017-02-10] MEDS: Docusate CAP* 100 MG PO SCH ×2 (08:57→22:02)
[2017-02-10] MEDS: Potassium Chlor TAB* 20 MEQ TAB.ER PO SCH (08:57)
[2017-02-10] MEDS: oxyCODONE/Acetamin 5/325 MG* TAB PO PRN ×2 (10:24→15:48)
[2017-02-10] MEDS: amLODIPine TAB* 5 MG PO SCH (17:27)
[2017-02-10] MEDS: Cetirizine* 10 MG TAB PO SCH (17:27)
[2017-02-10] MEDS: Warfarin TAB(*) 4 MG PO SCH (17:27)
[2017-02-10] MEDS: Sertraline* 25 MG TAB PO SCH (22:02)
[2017-02-10] MEDS: Senna TAB PO SCH (22:02)
[2017-02-11] MEDS: oxyCODONE/Acetamin 5/325 MG* TAB PO PRN ×4 (03:13→20:09)
[2017-02-11 07:56] LABS: BUN/Creatinine Ratio 17.4 (8-20); Calcium 8.5 mg/dL (8.6-10.3); EGFR Non-African American 80.9 (>60)
[2017-02-11] MEDS: Docusate CAP* 100 MG PO SCH ×2 (09:00→20:09)
[2017-02-11] MEDS: Potassium Chlor TAB* 20 MEQ TAB.ER PO SCH (09:00)
[2017-02-11] MEDS: Mometasone/Formoter 200/5 MDI INH SCH ×2 (09:01→20:13)
[2017-02-11] MEDS: amLODIPine TAB* 5 MG PO SCH (17:17)
[2017-02-11] MEDS: Warfarin TAB(*) 3 MG PO SCH (17:18)
[2017-02-11] MEDS: Cetirizine* 10 MG TAB PO SCH (17:18)
[2017-02-11] MEDS: Sertraline* 25 MG TAB PO SCH (20:08)
[2017-02-11] MEDS: Senna TAB PO SCH (20:08)
[2017-02-12] MEDS: oxyCODONE/Acetamin 5/325 MG* TAB PO PRN ×3 (05:00→18:44)
[2017-02-12] MEDS: Docusate CAP* 100 MG PO SCH ×2 (08:41→20:53)
[2017-02-12] MEDS: Potassium Chlor TAB* 20 MEQ TAB.ER PO SCH (08:41)
[2017-02-12] MEDS: Mometasone/Formoter 200/5 MDI INH SCH ×2 (08:42→20:57)
--- NOTE | 2017-02-12 12:21 | PMRUTEAM ---
PMRU: Goals Current Status: Nursing: Current Status Skin Deviations [Buttocks] Other Skin Deviations [Right Knee] Incision Skin Deviation Description [ healing Buttocks] Skin Deviation Description [ CDI Right Knee] Bladder Current Status up to bathroom supervision, lisandra serrato Bowel Current Status last bm 02/11 Nutrition Current Status adequate Physical Therapy: Current Status Bed Mobility Assistance Supervision Transfer Moblility Assistance Supervision Transfer/Bed Mobility Rolling Walker Recommended Devices Ambulation Assistance Supervision Ambulation Assistive Devices Rolling Walker Number of Feet Patient 150' Ambulated Stairs Assistance Supervision Stairs Recommended Devices Two Rails Number of Stairs 5 Curb Not Tested Occupational Therapy: Current Status Upper Body Dressing Supervision Lower Body Dressing Supervision Lower Body Dressing Progress min-mod A for socks/shoes. Bathing Supervision Bathing Progress UB bathing-S; LB bathing- min A for washing R foot . Toileting Supervision Toilet Transfer Supervision Shower Transfer Supervision Shower Transfer Progress roll in shower Eating Independent Instrumental ADL Dependent for IADLs. Rec Therapy: Current Status Summary of Assessment and RT assessment complete and pt. is aware of RT Clinical Impression services. Pt. is engaged in leisure sessions, bright and interactive. Pt. is open to continued leisure sessions. Treatment Goals Pt. will engage in leisure activities while on the unit. Treatment Plan Provide RT services and encourage involvement. Social Work: Current Status Discharge Plan return home to [facility] with home care svs and family support Potential for Family Training TBD Anticipated Discharge Home Destination Discharge With home care svs and family support Nutrition: Current Status Monitoring Pt s/p R TKA 02/05/17. Pt out for rehab when approached today; interview deferred. Pt seen 02/15 when pt on SSSU s/p surgery. Had experienced some nausea/vomiting at that time, and reduced appetite as result, but appetite appears to be improving with no noted further N/V. No difficulty chewing/swallowing per nursing documentation. Bowel pattern regular per review of bowel records. No new ed needs identified; pt educated on Coumadin/Vit K interaction while pt on SSSU. Noted hyponatremia; was followed by hospitalist on SSSU . hx of hyponatremia per [facility] [place] records; ? of SIADH. May require diuretic or fluid restriction per PA. Will follow and remain involved as needed. Goals: Physical Therapy: Initial Goals Bed Mobility Assistance Independent Transfer Mobility Assistance Independent Transfer/Bed Mobility Rolling Walker Recommended Devices Ambulation Independent Ambulation Recommended Devices Rolling Walker Ambulation Distance 150 Stairs Assistance Independent Stair Recommended Devices One Rail Number of Stairs 3 Physical Therapy: Updated Goals Bed Mobility Assistance Independent Transfer Mobility Assistance Independent Transfer/Bed Mobility Rolling Walker Recommended Devices Ambulation Assistance Independent Ambulation Assistive Devices Rolling Walker Ambulation Distance (ft) 150 Stairs Assistance Independent Stairs Recommended Devices One Rail,Two Rails Number of Stairs 5 Home Exercise Program Independent Assistance Occupational Therapy: Initial Goals Goals to be Completed in (Days 7-10 ) Upper Body Bathing Routine Independent Lower Body Bathing Routine Modified Independent with Upper Body Dressing Routine Independent Lower Body Dressing Routine Modified Independent with Toilet Hygeine and Clothing Modified Independent with Management Routine Toilet Transfer Routine Modified Independent with Step-In Shower Transfer Modified Independent with Routine Tub Transfer Routine Modified Independent with Functional Transfers for ADL Modified Independent with Grooming Routine Independent Feeding Routine Independent Light Housekeeping Tasks Modified Independent with Nutrition: Goals Intervention Goals 1. Intake will remain adequate to meet needs for post-op healing 2. Na+ will improve to acceptable values 3. Pt will maintain regular bowel pattern 4. Skin will remain intact without s/sx breakdown Social Work: Goals Discharge Plan return home to [facility] with home care svs and family support Potential for Family Training TBD Anticipated Discharge Home Destination Discharge With home care svs and family support Care Plan: Care Plan ADL's - Improve/Maintain Start: 02/09/17 12:47 Freq: DAILY Status: Active Target: Activity Type Activity Date Activity User E-Sign Co-Sign Detail Recorded Client Recorded Date Recorded By Document 02/11/17 15:30 [id number] 02/11/17 15:31 [id number] 02/11/17 15:30 PMRU Outcome: ADL's/ADL Transfers Orders/Interventions Occupational Therapy Evaluation & Treatment Communication Tool in Patient Room Device Yes Patient to receive OT 5x/wk for 60-120 Therex min/day Self Care Management Group Therapy Neuromuscular ReEducation UE/LE ADL's with Assist Yes ADL Transfers with Assist Yes Toileting: Transfers,Clothing Management Yes ,Hygeine w/Assist Light Kitchen/Laundry w/Assist Yes Progression Toward Outcome/Goals Progressing Outcome/Goals Met Pt. able to complete ADL routine with increased independence, with only min assist for drying feet. Pt . tolerated therapy sessions well with minimal c/ o pain. DVT Prophylaxis- Improve/Maintain Start: 02/07/17 18:56 Freq: DAILY Status: Active Target: Activity Type Activity Date Activity User E-Sign Co-Sign Detail Recorded Client Recorded Date Recorded By Document 02/12/17 10:09 [id number] 02/12/17 10:09 [id number] 02/12/17 10:09 PMRU Outcome: DVT Prophylaxis Outcome/Goals Remains Free of DVT Complies with DVT Prophylaxis /Treatment TEDS Stockings on Every AM, Off at HS Progression Toward Outcome/Goals Progressing Discharge Planning - Improve/Maintain Start: 02/07/17 18:56 Freq: DAILY Status: Active Target: Activity Type Activity Date Activity User E-Sign Co-Sign Detail Recorded Client Recorded Date Recorded By Document 02/12/17 01:20 [id number] 02/12/17 01:21 [id number] 02/12/17 01:20 PMRU Outcome: Discharge Planning Update Patient Family No Outcome/Goals Demonstrates Understanding of Discharge Plan Progression Toward Outcome/Goals Progressing Education-Improve/Maintain Start: 02/07/17 18:56 Freq: DAILY Status: Active Target: Activity Type Activity Date Activity User E-Sign Co-Sign Detail Recorded Client Recorded Date Recorded By Document 02/12/17 10:09 [id number] 02/12/17 10:09 [id number] 02/12/17 10:09 PMRU Outcome: Education Outcome/Goals Demonstrate/ Verbalize Understanding of Written Discharge Instructions Demonstrates Skills Encourage Questions Progression Toward Outcome/Goals Progressing Mobility- Improve/Maintain Start: 02/07/17 12:37 Freq: DAILY Status: Active Target: Activity Type Activity Date Activity User E-Sign Co-Sign Detail Recorded Client Recorded Date Recorded By Document 02/11/17 12:14 [id number] 02/11/17 12:14 [id number] 02/11/17 12:14 PMRU Outcome: Mobility Physical Therapy Evaluation and Yes Treatment Activity OOB with Assistance Yes WBAT Yes NWB No TTWB No Device Yes: rolling walker Assistance Yes: cga Patient to be seen 5x/wk for 60-120 min/ Therex day for: Mobility Training Gait Training Outcome/Goals Maintain/ Achieve Baseline Mobility Status Improve Mobility Status Demonstrates Proper Use of Assistive Devices Free from Complications of Immobility Progression Toward Outcome/Goals Progressing Bed Mobility Yes: independent Transfers Yes: mod independent Gait x ft Yes: 150ft with rolling walker independent W/C Mobility x ft No Up/Down Stairs Yes: 3 independent With HEP Yes Pain/Comfort- Improve/Maintain Start: 02/07/17 18:56 Freq: DAILY Status: Active Target: Activity Type Activity Date Activity User E-Sign Co-Sign Detail Recorded Client Recorded Date Recorded By Document 02/12/17 10:09 [id number] 02/12/17 10:09 [id number] 02/12/17 10:09 PMRU Outcome: Pain/Comfort Outcome/Goals Demonstrates Knowledge and Use of Available Comfort Measures Achieves Acceptable Comfort/Pain Level as Determined by Patient/Condit Maintain Comfort Level Allowing Patient to Fully Participate in Rehab Progression Toward Outcome/Goals Progressing Outcome/Goals Met Comment cryo unit in place Safety- Improve/Maintain Start: 02/07/17 18:56 Freq: DAILY Status: Active Target: Activity Type Activity Date Activity User E-Sign Co-Sign Detail Recorded Client Recorded Date Recorded By Document 02/12/17 10:09 [id number] [id number] 02/12/17 10:09 [id number] 02/12/17 10:09 PMRU Outcome: Safety Outcome/Goals Remain Free of Injury or Harm Cooperates with Safety Measures for Least Restrictive Environment Prevent Falls/ Injury Progression Toward Outcome/Goals Progressing Skin- Improve/Maintain Start: 02/07/17 18:56 Freq: DAILY Status: Active Target: Activity Type Activity Date Activity User E-Sign Co-Sign Detail Recorded Client Recorded Date Recorded By Document 02/12/17 10:09 [id number] 02/12/17 10:09 [id number] 02/12/17 10:09 PMRU Outcome: Skin Skin Risk Level Medium Skin Orders Dressing Change Air Mattress Heels Off Bed Turn/Position q2hr While in Bed Outcome/Goals Maintain/ Improve Skin Intergrity Free from Decubitus Surgical Incisions Healing Progression Toward Outcome/Goals Progressing Medicine Note: Length of Stay: 3 days Anticipated Discharge Destination: Home Tentative Discharge Date: 3 days Discharged to: [facility] (home)
[2017-02-12] MEDS: amLODIPine TAB* 5 MG PO SCH (17:20)
[2017-02-12] MEDS: Warfarin TAB(*) 3 MG PO SCH (17:20)
[2017-02-12] MEDS: Cetirizine* 10 MG TAB PO SCH (17:20)
[2017-02-12] MEDS: Senna TAB PO SCH (20:52)
[2017-02-12] MEDS: Sertraline* 25 MG TAB PO SCH (20:53)
[2017-02-13] MEDS: oxyCODONE/Acetamin 5/325 MG* TAB PO PRN ×3 (02:06→17:06)
[2017-02-13] MEDS: Potassium Chlor TAB* 20 MEQ TAB.ER PO SCH (08:04)
[2017-02-13] MEDS: Docusate CAP* 100 MG PO SCH ×2 (08:04→20:41)
[2017-02-13] MEDS: Mometasone/Formoter 200/5 MDI INH SCH ×2 (08:05→20:41)
[2017-02-13] MEDS: amLODIPine TAB* 5 MG PO SCH (17:06)
[2017-02-13] MEDS: Cetirizine* 10 MG TAB PO SCH (17:06)
[2017-02-13] MEDS: Warfarin TAB(*) 2 MG PO SCH (17:06)
[2017-02-13] MEDS: Senna TAB PO SCH (20:41)
[2017-02-13] MEDS: Sertraline* 25 MG TAB PO SCH (20:41)
[2017-02-14] MEDS: oxyCODONE/Acetamin 5/325 MG* TAB PO PRN ×4 (00:20→20:29)
[2017-02-14] MEDS: Mometasone/Formoter 200/5 MDI INH SCH ×2 (07:43→19:15)
[2017-02-14] MEDS: Potassium Chlor TAB* 20 MEQ TAB.ER PO SCH (07:44)
[2017-02-14] MEDS: Docusate CAP* 100 MG PO SCH ×2 (07:44→19:15)
[2017-02-14 16:29] VITALS: BP 138/61
[2017-02-14] MEDS: Cetirizine* 10 MG TAB PO SCH (17:25)
[2017-02-14] MEDS: Warfarin TAB(*) 2 MG PO SCH (17:26)
[2017-02-14] MEDS: Magnesium Hydroxide LIQ* 30 ML UDC PO PRN (17:35)
[2017-02-14] MEDS ORDERED: amLODIPine TAB* 5 MG PO SCH (18:00)
[2017-02-14] MEDS: Sertraline* 25 MG TAB PO SCH (19:15)
[2017-02-14] MEDS: Senna TAB PO SCH (19:15)
[2017-02-15] MEDS: oxyCODONE/Acetamin 5/325 MG* TAB PO PRN ×2 (03:48→12:22)
[2017-02-15 07:11] LABS: Hematocrit 24 % (35-47); Hemoglobin 8.2 g/dl (12.0-16.0); Mean Corpuscular HGB Conc 34 g/dl (31-36); Mean Corpuscular Hemoglobin 30 pg (27-31); Mean Corpuscular Volume 87 fL (80-97); Mean Platelet Volume 7 um3 (7.4-10.4); Red Blood Count 2.78 10^6/ul (4.0-5.4); Red Cell Distribution Width 14 % (10.5-15); White Blood Count 5.1 10^3/ul (3.5-10.8)
[2017-02-15 07:27] LABS: BUN/Creatinine Ratio 15.2 (8-20); Calcium 8.9 mg/dL (8.6-10.3); EGFR African American 109.5 (>60); EGFR Non-African American 85.1 (>60); Globulin 2.7 g/dL (2-4); Potassium 3.9 mmol/L (3.5-5.0); Total Bilirubin 0.5 mg/dL (0.2-1.0); Total Protein 5.7 g/dL (6.4-8.9)
[2017-02-15] MEDS: Mometasone/Formoter 200/5 MDI INH SCH (08:21)
[2017-02-15] MEDS: Docusate CAP* 100 MG PO SCH (08:22)
[2017-02-15] MEDS: Potassium Chlor TAB* 20 MEQ TAB.ER PO SCH (08:22)
--- NOTE | 2017-02-16 17:22 | DS ---
*CC: Freda Souza MD; Gabby Moon MD DISCHARGE SUMMARY: DATE OF ADMISSION: 02/07/17 DATE OF DISCHARGE: 02/15/17 DISCHARGE DIAGNOSES: 1. Right total knee replacement. 2. Severe osteoarthritis, right knee. 3. Hypertension. 4. Breast cancer. 5. Chronic obstructive pulmonary disease. HISTORY OF ILLNESS AND HOSPITAL COURSE: For a complete history of the events leading up to her rehab stay, please see the history and physical dictated by me on 02/07/17. While on the rehab unit, she was medically stable. She was maintained on Coumadin for DVT prophylaxis. She did have a little trouble with hyponatremia, but this was a chronic issue. The patient otherwise did well. She was seen by both Physical and Occupational Therapy while on the rehab unit. She made good gains with both disciplines. With physical therapy at the time of admission, the patient required min-assist for bed mobility, min-assist to do a transfer. She was able to ambulate 30 feet with contact guard. With occupational therapy, she was min-assist for toileting and toilet transfers. By the time of discharge, the patient was independent in transfers, independent in bed mobility, independent ambulating, independent with her activities of daily living. She was able to ambulate 150 feet independently at discharge. The patient was discharged home on 02/15/17. DISCHARGE DIET: Regular. DISCHARGE MEDICATIONS: 1. Zoloft 25 mg at bedtime. 2. Coumadin 2 mg daily or as directed. 3. Norvasc 5 mg daily. 4. Percocet 1 to 2 tablets every 4 hours as needed. 5. Flonase 1 spray to both nares daily. 6. Xyzal 5 mg every evening. 7. Symbicort 2 puffs twice daily. SERVICES AFTER DISCHARGE: Through the visiting nurse service. She will have home nursing, home physical therapy, and a home health aide. FOLLOWUP: Follow up with Dr. Gabby Moon, on 02/18/17 for suture removal. [id number]/[facility] #: [id number] [facility]ITAL[facility]ate
== END 2017-02-15 13:00 | disposition home health service (06) | DRG 561 ==
LOC: PMRU 10:37
PROVIDERS: ADMIT Physical Medicine & Rehabilitation; ATTEND Physical Medicine & Rehabilitation
PROC: F07Z5ZZ Bed Mobility Treatment (ICD-10-PCS; principal; 2017-02-07)
PROC: F07Z9ZZ Gait Training/Functional Ambulation Treatment (ICD-10-PCS; 2017-02-07)
PROC: F07Z8ZZ Transfer Training Treatment (ICD-10-PCS; 2017-02-07)
PROC: F08Z0ZZ Bathing/Showering Techniques Treatment (ICD-10-PCS; 2017-02-07)
PROC: F08Z1ZZ Dressing Techniques Treatment (ICD-10-PCS; 2017-02-07)
PROC: F08Z3ZZ Feeding/Eating Treatment (ICD-10-PCS; 2017-02-07)
DX: Z47.1 Aftercare following joint replacement surgery (principal); J44.9 Chronic obstructive pulmonary disease, unspecified; C50.911 Malignant neoplasm of unspecified site of right female breast; Z96.651 Presence of right artificial knee joint; I10 Essential (primary) hypertension; Z79.01 Long term (current) use of anticoagulants; Z79.899 Other long term (current) drug therapy; Z88.6 Allergy status to analgesic agent; Z88.5 Allergy status to narcotic agent; Z88.8 Allergy status to other drugs, medicaments and biological substances
CPT/HCPCS: 36415; 80048; 80053; 85025; 85610; 94640; 94760; A9270-GY

== ENCOUNTER 2017-02-25 21:38 | Emergency (ER) | payer MEDICARE ==
--- NOTE | 2017-02-25 22:41 | ED ---
Nany Cortez Alok, scribed for Hebert Lizarraga MD on 02/25/17 at 2216 . HPI Chest Pain - HPI Summary HPI Summary: 86F presents to the ED for an episode of CP which has since resolved. Pt states that she was seen by her PCP Dr. Moon earlier today for FU on her right knee replacement on 02/15/17 and noted that the Pt's BP was high. Pt then experienced a sudden onset of sharp CP radiating to her jaw at 2044, prompting her to call EMS. Pt denies CP currently. PMHx includes HTN and h/o breast CA. - History of Current Complaint Chief Complaint: EDChestPainROMI Time Seen by Provider: 02/25/17 21:57 Hx Obtained From: Patient Onset/Duration: Started Hours Ago, Atraumatic, Resolved Time of Onset: 20:45 Timing: Intermittent Initial Severity: Moderate Current Severity: Moderate Pain Intensity: 0 Pain Scale Used: 0-10 Numeric Chest Pain Radiates: Yes Chest Pain Radiates To:: Jaw Character: Sharp/Stabbing Aggravating Factor(s): Nothing Alleviating Factor(s): Nothing Associated Signs and Symptoms: Positive: Chest Pain, Other: - High BP at PCP earlier today - Additional Pertinent History Primary Care Physician: [id number] - Allergy/Home Medications Allergies/Adverse Reactions: Allergies Allergy/AdvReac Type Severity Reaction Status Date / Time Aspirin Allergy Severe ASTHMATIC Verified 02/05/17 07:41 REACTIONS Anastrozole Allergy ITCHY RASH Verified 02/05/17 07:41 Codeine Allergy NAUSEA, Verified 02/05/17 07:41 Lisinopril Allergy Swelling Verified 02/05/17 07:41 Of Face,Lips,& Throat ENVIRONMENTAL/SEASONAL Allergy Severe ASTHMATIC Uncoded 02/05/17 07:41 ALLERGY REACTIONS ENVIRONMENTAL Allergy Unknown Uncoded 02/05/17 07:41 Reaction Details PURE PEPPERMINT-ALL MINTS Allergy SHORT OF Uncoded 02/05/17 07:41 BREATH ONIONS AdvReac GI Upset Uncoded 02/05/17 07:41 PMH/Surg Hx/FS Hx/Imm Hx Endocrine/Hematology History: Denies: Hx Diabetes Cardiovascular History: Reports: Hx Hypertension Denies: Hx Pacemaker/ICD Respiratory History: Reports: Hx Asthma - pneumonia Jul 2016, triggered asthma, Other Respiratory Problems/Disorders - post nasal drip currently Denies: Hx Chronic Obstructive Pulmonary Disease (COPD) History: Reports: Other Problems/Disorders - HX OF BLADDER INFECTIONS, NONE RECENTLY Denies: Hx Dialysis, Hx Renal Disease Musculoskeletal History: Reports: Hx Arthritis, Other Musculoskeletal History - OCCASIONAL LOW BACK PAINS Denies: Hx Back Problems, Hx Osteoporosis Sensory History: Reports: Hx Cataracts - BILATERAL, Hx Contacts or Glasses, Hx Hearing Aid Opthamlomology History: Reports: Hx Cataracts - BILATERAL, Hx Contacts or Glasses Neurological History: Reports: Other Neuro Impairments/Disorders - POOR BALANCE OVER LAST 6 MONTH Denies: Hx Dementia, Hx Seizures Psychiatric History: Reports: Hx Depression - mild, pt taking medication Denies: Hx Panic Disorder - Cancer History Cancer Type, Location and Year: Breast Cancer 2011 Hx Chemotherapy: Yes Hx Radiation Therapy: Yes - Surgical History Surgery Procedure, Year, and Place: 1958 RIGHT KIDNEY PYLELOPLASTY, [facility]2011 LEFT LUMPECTOMY WITH LYMPH NODE REMOVAL, [id number]'S OR 70'S SEPTOPLASTY, [place], [place]2013 [place] [facility] [place] BENIGN TUMOR UPPER LEFT LEG REMOVAL Hx Anesthesia Reactions: No Infectious Disease History: No Infectious Disease History: Denies: Traveled Outside the [place] in Last 30 Days - Family History Known Family History: Positive: Other - Yes- Anestesia reaction (Sister) - Social History Occupation: Retired Alcohol Use: None Substance Use Type: Reports: None Smoking Status (MU): Never Smoked Tobacco Review of Systems Negative: Fever Positive: Chest Pain All Other Systems Reviewed And Are Negative: Yes Physical Exam Triage Information Reviewed: Yes Vital Signs On Initial Exam: Initial Vitals Temp Pulse Resp BP Pulse Ox 99.5 F 84 16 189/81 100 02/25/17 21:45 02/25/17 21:45 02/25/17 21:45 02/25/17 21:45 02/25/17 21:45 Vital Signs Reviewed: Yes Appearance: Positive: Well-Appearing, No Pain Distress Skin: Positive: Warm Head/Face: Positive: Normal Head/Face Inspection Eyes: Positive: Normal ENT: Positive: Hearing grossly normal Neck: Positive: Supple Respiratory/Lung Sounds: Positive: Breath Sounds Present Cardiovascular: Positive: RRR Abdomen Description: Positive: Nontender, Soft Bowel Sounds: Positive: Present Musculoskeletal: Positive: Strength/ROM Intact Neurological: Positive: Alert, Oriented to Person Place, Time Psychiatric: Positive: Affect/Mood Appropriate Diagnostics - Vital Signs Vital Signs Temp Pulse Resp BP Pulse Ox 02/25/17 21:45 99.5 F 84 16 189/81 100 - Laboratory Result Diagrams: 02/25/17 22:43 02/25/17 22:43 Lab Statement: Any lab studies that have been ordered have been reviewed, and results considered in the medical decision making process. - Radiology CXR Xray Interpretation: No Acute Changes Radiology Interpretation Completed By: ED Physician - Dr. Lizarraga - EKG 2204 Cardiac Rate: NL - 75 bpm EKG Rhythm: Sinus Rhythm Re-Evaluation - Re-Evaluation First Eval Comment: remains pain free, results d/w pt Chest Pain Course/Dx - Diagnoses Provider Diagnoses: Chest pain Discharge - Discharge Plan Condition: Stable Disposition: HOME Patient Education Materials: Chest Pain (ED) Referrals: Freda Souza MD [Primary Care Provider] - The documentation as recorded by the Nany grey Alok accurately reflects the service I personally performed and the decisions made by , Hebert Lizarraga MD.
[2017-02-25 22:54] LABS: Hematocrit 29 % (35-47); Hemoglobin 9.4 g/dl (12.0-16.0); Mean Corpuscular HGB Conc 33 g/dl (31-36); Mean Corpuscular Hemoglobin 28 pg (27-31); Mean Corpuscular Volume 86 fL (80-97); Mean Platelet Volume 6 um3 (7.4-10.4); Red Blood Count 3.36 10^6/ul (4.0-5.4); Red Cell Distribution Width 16 % (10.5-15); White Blood Count 5.7 10^3/ul (3.5-10.8)
[2017-02-25 23:10] LABS: Albumin 3.7 g/dL (3.2-5.2); BUN/Creatinine Ratio 15.5 (8-20); Calcium 9.3 mg/dL (8.6-10.3); EGFR African American 82.9 (>60); EGFR Non-African American 64.4 (>60); Potassium 3.3 mmol/L (3.5-5.0); Total Bilirubin 0.5 mg/dL (0.2-1.0); Total Protein 6.7 g/dL (6.4-8.9)
[2017-02-26 01:55] VITALS: BP 163/77
--- NOTE | 2017-02-26 07:40 | RAD ---
INDICATION: Chest pain. COMPARISON: Comparison is made with a prior study from July 18, 2016. TECHNIQUE: Dual-energy PA and lateral views of the chest were obtained. FINDINGS: The heart is mildly enlarged and unchanged from the prior exam. The lungs are slightly hyperinflated and clear. No pleural effusion is seen. IMPRESSION: FINDINGS SUGGESTIVE OF COPD, NO EVIDENCE FOR ACUTE FINDING.
== END 2017-02-26 02:02 | disposition home or self-care (01) ==
LOC: ED 21:38
DX: R07.9 Chest pain, unspecified (principal); I10 Essential (primary) hypertension; F32.9 Major depressive disorder, single episode, unspecified; Z88.6 Allergy status to analgesic agent; Z88.5 Allergy status to narcotic agent
CPT/HCPCS: 36415; 71020; 80053; 83605; 84484; 85025; 93005; 99283

== ENCOUNTER 2017-12-01 23:25 | Inpatient (IN) | payer MEDICARE ==
--- OUTSIDE RECORDS SUMMARY | 2017-12-01 23:39 | XMS REPORT ---
:1930 External Reference #:[id number] Author Organization [facility] Address [address] [place] [address] Phone [phone] Care Team Providers Name Role Phone Freda Souza M.D. Primary Care Physician Unavailable Payers Type Date Identification Numbers Payment Provider Subscriber Medicare Primary Effective: Policy Number: [employer]-[place] Nevin Kyle 1996 [id number] Govn [employer] PayID: [id number] [address] [place] [address] Medigap Part B Expires: 2009 Policy Number: [facility] Nevin Kyle [id number] [facility] Group Number: [id number] [address] [address] PayID: [id number] KATI Nair [address] Medigap Part B Policy Number: [id number] [facility] Nevin Kyle PayID: [id number] [address] [place] [address] Problems Date Description Provider Status Onset: 10/11/2014 Allergic rhinitis due to pollen Reddy Rush M.D. Active Onset: 04/13/2014 Impacted cerumen Reddy Rush M.D. Active Social History Type Date Description Comments Occupation Retired Cigarette Use Never Smoked Cigarettes Cigars has never smoked cigars Pipe has never smoked a pipe Smokeless Tobacco has never used smokeless tobacco ETOH Use Current Alcohol Use Occasionally Smoking Patient has never smoked Allergies, Adverse Reactions, Alerts Date Description Reaction Status Severity Comments 01/20/2004 Aspirin active 01/20/2004 Codeine active 01/21/2017 Mint active Medications Medication Date Status Form Strength Qnty SIG Indications Ordering Provider Cefdinir 11/18 Active Capsules 300mg 28cap 1 by J32.4 Reddy Kirby /2017 s mouth two Adri, times per M.D. day Epipen 2-Conor 10/14 Active Solution 0.3mg/0.3 1pack inject as Reddy Kirby Auto-Injec ML needed Adri t for M.D. allergic reaction Zoloft Active Tablets 25mg 1/2 tab Cotton, /0000 once a Freda day M.D. Calcium 500 Active 1 tab Unknown /0000 twice daily Amlodipine Active Tablets 5mg 1 by Faviola Senior Besylate /0000 mouth M.D. every day Hydrochlorothiaz Active Tablets 25mg 1 tab Unknown jessica / daily Fluticasone Active Suspension 50mcg/Act Unknown Propionate Tylenol Extra Active Tablets 500mg 2 by Unknown Strength /0000 mouth every day as needed Tahira 128 Active Ointment 5% as Cotton, /0000 directed Freda M.D. Refresh Active Solution 1.4-0.6% instill 1 Cotton, / drop both Freda eyes at M.D. bedtime L-Lysine HCL Active Tablets 500mg prn Unknown / Azelastine HCL Active Solution 0.1% Use 1 Unknown (Nasal) / [place] In Each Nostril Two Times Daily as Needed Fexofenadine HCL Active Tablets 180mg 1 by Unknown /0000 mouth every day at bedtime Hydroxyzine HCL 12/16 Hx Tablets 25mg 120ta 1 by 698.9 Reddy Kirby /2012 bs mouth 3-4 Adri, - times a M.D. 04/26 day needed for itching Twinject 09/29 Hx Device 0.3mg/Dos 2unit Im Or SC Reddy Kirby /2007 e s Into Adri, - Thigh M.D. 04/11 Keflex 12/02 Hx Capsules 500mg 7Days 1 By 704.8 Reddy Kirby /2006 Mouth 3 Adri, - Times A M.D. /2006 Lisinopril & 00 Hx Tablets 20mg;25 Faviola Senior HCTZ /0000 mg M.D. - 04/10 Norvasc Hx Tablets 2.5mg Faviola Senior /0000 M.D. - 04/10 Ines Hx Capsules 60mg Kashif Seniorn /0000 M.D. - 04/26 Nasonex Hx Suspension 50mcg 1unit 2 Sprays Faviola Senior Intranasal [place] /0000 s Each M.D. - Nostril 04/26 Diprolene AF Hx Cream 0.05% 1Tube Apply qd Faviola Senior /0000 M.D. - 04/26 Vagifem Hx Tablets 25.8mcg Faviola Senior /0000 M.D. - 04/26 Anastrozole Hx Unknown /0000 - 12/16 Preservision Hx Unknown Areds /0000 - 01/21 Fish Oil Hx Unknown /0000 - 01/21 Fluticasone Hx Suspension 50mcg/Act 2 sprays Cotton, Propionate /0000 in each Freda - nostril M.D. 08/29 Ines Allergy Hx Tablets 180mg 1 by Cotton, /0000 mouth Freda - every day M.D. 08/29 Lisinopril Hx Tablets 20mg Daily as Cotton, /0000 directed Freda - M.D. 01/21 Xyzal Hx Tablets 5mg 1 by Cam MUNOZ, /0000 mouth Christopher - every day 11/18 Symbicort Hx Aerosol 160-4.5mc 2 puffs Cam MUNOZ, /0000 g/Act 2x a day Christopher - with 11/18 Qnasl Hx Aerosol 80mcg/Act 2sprays Cam MUNOZ, /0000 twice a Christopher - day 01/21 Proair HFA Hx Aerosol 108(90Bas Unknown /0000 e) - mcg/Act 01/21 Immunizations CPT Code Status Date Vaccine Lot # [id number] Given 10/11/2014 Prevnar 13 For Intramuscular Use 60057 Given 10/11/2014 Influenza Virus Vaccine, 3 Years Of Age And Above, Intramuscular Vital Signs Date Vital Result Comment 11/18/2017 Weight 138.00 lb Weight in kg's 62.597 Height 67 inches 5'7" Height in cm's 170.2 cm BMI (Body Mass Index) 21.6 kg/m2 04/09/2017 Heart Rate 69 /min Weight 138.00 lb Weight in kg's 62.597 Height 67 inches 5'7" Height in cm's 170.2 cm BMI (Body Mass Index) 21.6 kg/m2 01/21/2017 BP Systolic 183 mmHg BP Diastolic 93 mmHg Heart Rate 63 /min Respiratory Rate 18 /min Weight 152.00 lb Weight in kg's 68.947 Height 67 inches 5'7" Height in cm's 170.2 cm BMI (Body Mass Index) 23.8 kg/m2 04/10/2016 BP Systolic 163 mmHg BP Diastolic 76 mmHg Heart Rate 71 /min Respiratory Rate 17 /min Weight 152.00 lb Weight in kg's 68.947 Height 67 inches 5'7" Height in cm's 170.2 cm BMI (Body Mass Index) 23.8 kg/m2 04/26/2015 BP Systolic 142 mmHg BP Diastolic 79 mmHg Heart Rate 78 /min Respiratory Rate 17 /min Weight 158.00 lb Weight in kg's 71.669 Height 67 inches 5'7" Height in cm's 170.2 cm BMI (Body Mass Index) 24.7 kg/m2 10/11/2014 BP Systolic 183 mmHg 184/87, P65 BP Diastolic 92 mmHg 184/87, P65 Heart Rate 71 /min Respiratory Rate 17 /min Weight 158.00 lb Weight in kg's 71.669 Height 67 inches 5'7" Height in cm's 170.2 cm BMI (Body Mass Index) 24.7 kg/m2 04/13/2014 BP Systolic 146 mmHg BP Diastolic 76 mmHg Heart Rate 73 /min Respiratory Rate 17 /min Weight 153.00 lb Weight in kg's 69.401 Height 67 inches 5'7" Height in cm's 170.2 cm BMI (Body Mass Index) 24.0 kg/m2 10/13/2013 BP Systolic 120 mmHg BP Diastolic 72 mmHg Heart Rate 68 /min Respiratory Rate 16 /min Weight 153.00 lb Weight in kg's 69.401 Height 67 inches 5'7" Height in cm's 170.2 cm BMI (Body Mass Index) 24.0 kg/m2 04/10/2013 Respiratory Rate 17 /min Weight 153.00 lb Weight in kg's 69.401 Height 67 inches 5'7" Height in cm's 170.2 cm BMI (Body Mass Index) 24.0 kg/m2 12/16/2012 BP Systolic 173 mmHg BP Diastolic 80 mmHg Heart Rate 70 /min Respiratory Rate 16 /min Weight 153.00 lb Weight in kg's 69.401 Height 67 inches 5'7" Height in cm's 170.2 cm BMI (Body Mass Index) 24.0 kg/m2 08/14/2011 BP Systolic 172 mmHg BP Diastolic 87 mmHg Heart Rate 64 /min Respiratory Rate 16 /min 08/14/2011 BP Systolic 183 mmHg BP Diastolic 89 mmHg Heart Rate 65 /min Respiratory Rate 16 /min 05/31/2011 BP Systolic 154 mmHg BP Diastolic 78 mmHg Heart Rate 67 /min Respiratory Rate 16 /min Weight 133.00 lb Weight in kg's 60.329 Height 65.25 inches 5'5.25" Height in cm's 165.7 cm BMI (Body Mass Index) 22.0 kg/m2 11/01/2008 BP Systolic 123 mmHg BP Diastolic 64 mmHg Heart Rate 71 /min Respiratory Rate 16 /min 08/03/2008 Heart Rate 68 /min Respiratory Rate 16 /min Weight 150.00 lb Weight in kg's 68.040 04/30/2008 BP Systolic 139 mmHg BP Diastolic 84 mmHg Heart Rate 74 /min Respiratory Rate 16 /min 11/25/2007 BP Systolic 148 mmHg BP Diastolic 91 mmHg Heart Rate 64 /min Respiratory Rate 20 /min 08/25/2007 BP Systolic 118 mmHg BP Diastolic 66 mmHg Heart Rate 75 /min Respiratory Rate 14 /min 02/18/2007 BP Systolic 129 mmHg BP Diastolic 82 mmHg Heart Rate 60 /min Respiratory Rate 16 /min 05/07/2005 BP Systolic 137 mmHg BP Diastolic 76 mmHg Heart Rate 65 /min Respiratory Rate 16 /min Results Description No Information Procedures Date CPT Code Description Status 10/21/2017 70961 Allergy Injection X2,No Extract Completed 09/23/2017 84245 Allergy Injection X2,No Extract Completed 09/16/2017 36829 Allergy Injection X2,No Extract Completed 09/09/2017 96550 Allergy Injection X2,No Extract Completed 07/16/2017 51715 Allergy Injection X2,No Extract Completed 06/17/2017 29771 Allergy Injection X2,No Extract Completed 05/17/2017 92211 Allergy Injection X2,No Extract Completed 04/26/2017 00511 Allergy Injection X2,No Extract Completed 04/11/2017 34371 Intradermals Completed 04/09/2017 72873 Removal Wax Impaction Completed 01/24/2017 00155 Allergy Injection X2,No Extract Completed 01/04/2017 40888 Allergy Injection X2,No Extract Completed 12/14/2016 17793 Allergy Injection X2,No Extract Completed 11/23/2016 89231 Allergy Injection X2,No Extract Completed 11/02/2016 24260 Intradermals Completed 10/12/2016 76689 Allergy Injection X2,No Extract Completed 10/12/2016 29236 Allergy Extract/Prof. Services Completed 09/20/2016 36858 Allergy Injection X2,No Extract Completed 08/30/2016 31846 Allergy Injection X2,No Extract Completed 08/10/2016 32936 Allergy Injection X2,No Extract Completed 07/19/2016 37352 Allergy Injection X2,No Extract Completed 06/28/2016 96528 Allergy Injection X2,No Extract Completed 06/07/2016 11245 Allergy Injection X2,No Extract Completed 05/17/2016 45388 Allergy Injection X2,No Extract Completed 04/27/2016 73796 Allergy Injection X2,No Extract Completed 04/10/2016 42717 Removal Wax Impaction Completed 03/29/2016 10934 Allergy Injection X2,No Extract Completed 03/12/2016 85019 Intradermals Completed 02/24/2016 94632 Allergy Extract/Prof. Services Completed 02/16/2016 41889 Allergy Injection X2,No Extract Completed 01/26/2016 56479 Allergy Injection X2,No Extract Completed 12/29/2015 97851 Single Allergen Shot, No Extract Completed 12/08/2015 42315 Allergy Injection X2,No Extract Completed 11/17/2015 29321 Allergy Injection X2,No Extract Completed 10/27/2015 51087 Allergy Injection X2,No Extract Completed 10/07/2015 12482 Allergy Injection X2,No Extract Completed 09/08/2015 85975 Allergy Injection X2,No Extract Completed 08/17/2015 87763 Allergy Injection X2,No Extract Completed 07/27/2015 70441 Allergy Injection X2,No Extract Completed 07/18/2015 76588 Intradermals Completed 06/22/2015 31353 Allergy Extract/Prof. Services Completed 06/20/2015 22005 Allergy Injection X2,No Extract Completed 05/23/2015 03603 Allergy Injection X2,No Extract Completed 04/21/2015 17348 Allergy Injection X2,No Extract Completed 03/25/2015 45320 Allergy Injection X2,No Extract Completed 02/24/2015 29379 Allergy Injection X2,No Extract Completed 01/20/2015 61283 Allergy Injection X2,No Extract Completed 12/06/2014 77344 Allergy Injection X2,No Extract Completed 11/15/2014 94059 Allergy Injection X2,No Extract Completed 10/25/2014 12816 Allergy Injection X2,No Extract Completed 10/11/2014 52501 Removal Wax Impaction Completed 10/04/2014 44112 Allergy Injection X2,No Extract Completed 09/09/2014 20266 Allergy Injection X2,No Extract Completed 08/17/2014 68108 Intradermals Completed 07/28/2014 94389 Allergy Extract/Prof. Services Completed 07/26/2014 37711 Allergy Injection X2,No Extract Completed 06/15/2014 77047 Allergy Injection X2,No Extract Completed 05/25/2014 60800 Allergy Injection X2,No Extract Completed 05/07/2014 71851 Allergy Injection X2,No Extract Completed 04/13/2014 60472 Allergy Injection X2,No Extract Completed 04/13/2014 76718 Removal Wax Impaction Completed 03/23/2014 16232 Allergy Injection X2,No Extract Completed 03/04/2014 02267 Allergy Injection X2,No Extract Completed 02/09/2014 51508 Allergy Injection X2,No Extract Completed 01/19/2014 76603 Allergy Injection X2,No Extract Completed 01/05/2014 44595 Intradermals Completed 12/22/2013 44246 Allergy Extract/Prof. Services Completed 12/15/2013 78983 Allergy Injection X2,No Extract Completed 11/17/2013 08317 Allergy Injection X2,No Extract Completed 10/27/2013 00416 Allergy Injection X2,No Extract Completed 10/13/2013 42475 Removal Wax Impaction Completed 10/06/2013 63564 Allergy Injection X2,No Extract Completed 09/15/2013 50272 Allergy Injection X2,No Extract Completed 08/25/2013 08731 Allergy Injection X2,No Extract Completed 08/04/2013 53940 Allergy Injection X2,No Extract Completed 07/17/2013 60134 Allergy Injection X2,No Extract Completed 06/30/2013 81700 Allergy Injection X2,No Extract Completed 06/09/2013 35103 Allergy Injection X2,No Extract Completed 05/19/2013 65365 Intradermals Completed 05/04/2013 20005 Allergy Extract/Prof. Services Completed 05/01/2013 87939 Single Allergen Shot, No Extract Completed 04/10/2013 18529 Removal Wax Impaction Completed 04/03/2013 48478 Single Allergen Shot, No Extract Completed 03/10/2013 46591 Single Allergen Shot, No Extract Completed 02/13/2013 13444 Single Allergen Shot, No Extract Completed 01/09/2013 37930 Single Allergen Shot, No Extract Completed 12/09/2012 20068 Prick Test Completed 11/25/2012 58122 Single Allergen Shot, No Extract Completed 11/04/2012 27595 Single Allergen Shot, No Extract Completed 10/14/2012 99944 Single Allergen Shot, No Extract Completed 10/14/2012 62151 Intradermals Completed 09/29/2012 31241 Allergy Extract/Prof. Services Completed 09/23/2012 12005 Single Allergen Shot, No Extract Completed 09/01/2012 20737 Single Allergen Shot, No Extract Completed 08/08/2012 31149 Single Allergen Shot, No Extract Completed 07/18/2012 97200 Single Allergen Shot, No Extract Completed 06/27/2012 69297 Single Allergen Shot, No Extract Completed 06/26/2012 04809 Removal Wax Impaction Completed 06/06/2012 14593 Single Allergen Shot, No Extract Completed 05/12/2012 59080 Single Allergen Shot, No Extract Completed 04/15/2012 82166 Allergy Injection X2,No Extract Completed 03/25/2012 71860 Intradermals Completed 03/11/2012 12908 Allergy Extract/Prof. Services Completed 03/04/2012 47718 Single Allergen Shot, No Extract Completed 02/11/2012 21073 Single Allergen Shot, No Extract Completed 01/22/2012 17919 Single Allergen Shot, No Extract Completed 01/01/2012 96575 Single Allergen Shot, No Extract Completed 12/13/2011 93240 Removal Wax Impaction Completed 12/11/2011 22457 Single Allergen Shot, No Extract Completed 11/20/2011 82658 Single Allergen Shot, No Extract Completed 10/26/2011 33860 Single Allergen Shot, No Extract Completed 10/05/2011 62739 Single Allergen Shot, No Extract Completed 09/11/2011 98787 Single Allergen Shot, No Extract Completed 08/24/2011 07707 Single Allergen Shot, No Extract Completed 08/15/2011 79680 Intradermals Completed 07/24/2011 00242 Allergy Extract/Prof. Services Completed 07/10/2011 17533 Single Allergen Shot, No Extract Completed 06/18/2011 89874 Single Allergen Shot, No Extract Completed 05/29/2011 92080 Single Allergen Shot, No Extract Completed 05/08/2011 43712 Single Allergen Shot, No Extract Completed 04/17/2011 04035 Single Allergen Shot, No Extract Completed 03/30/2011 29672 Single Allergen Shot, No Extract Completed 03/06/2011 52428 Single Allergen Shot, No Extract Completed 02/13/2011 42293 Single Allergen Shot, No Extract Completed 01/23/2011 06373 Single Allergen Shot, No Extract Completed 01/16/2011 31774 Intradermals Completed 01/01/2011 73384 Allergy Extract/Prof. Services Completed 12/28/2010 06950 Removal Wax Impaction Completed 12/26/2010 50966 Single Allergen Shot, No Extract Completed 11/23/2010 29004 Single Allergen Shot, No Extract Completed 10/26/2010 75200 Single Allergen Shot, No Extract Completed 10/05/2010 69358 Single Allergen Shot, No Extract Completed 09/25/2010 44442 Removal Wax Impaction Completed 09/15/2010 34775 Allergy Injection X2,No Extract Completed 08/24/2010 78618 Single Allergen Shot, No Extract Completed 08/03/2010 16162 Single Allergen Shot, No Extract Completed 07/11/2010 19457 Single Allergen Shot, No Extract Completed 06/20/2010 83644 Single Allergen Shot, No Extract Completed 06/14/2010 64426 Intradermals Completed 05/29/2010 88719 Allergy Extract/Prof. Services Completed 05/25/2010 85016 Single Allergen Shot, No Extract Completed 05/22/2010 63786 Removal Wax Impaction Completed 05/04/2010 20250 Single Allergen Shot, No Extract Completed 04/12/2010 92808 Single Allergen Shot, No Extract Completed 03/22/2010 16588 Single Allergen Shot, No Extract Completed 03/01/2010 52297 Single Allergen Shot, No Extract Completed 02/17/2010 22063 Removal Wax Impaction Completed 02/08/2010 43176 Single Allergen Shot, No Extract Completed 02/02/2010 84664 Prick Test Completed 01/18/2010 97000 Single Allergen Shot, No Extract Completed 12/28/2009 29008 Single Allergen Shot, No Extract Completed 12/06/2009 66488 Single Allergen Shot, No Extract Completed 12/06/2009 57676 Intradermals Completed 11/21/2009 29242 Allergy Extract/Prof. Services Completed 11/16/2009 95025 Removal Wax Impaction Completed 11/15/2009 39936 Single Allergen Shot, No Extract Completed 10/25/2009 81320 Single Allergen Shot, No Extract Completed 10/04/2009 67216 Single Allergen Shot, No Extract Completed 09/14/2009 92442 Single Allergen Shot, No Extract Completed 08/23/2009 28900 Single Allergen Shot, No Extract Completed 08/15/2009 51123 Removal Wax Impaction Completed 08/02/2009 81459 Single Allergen Shot, No Extract Completed 07/12/2009 41891 Single Allergen Shot, No Extract Completed 06/21/2009 17807 Single Allergen Shot, No Extract Completed 06/03/2009 77204 Single Allergen Shot, No Extract Completed 05/20/2009 26057 Single Allergen Shot, No Extract Completed 05/20/2009 07740 Intradermals Completed 05/09/2009 77651 Removal Wax Impaction Completed 05/06/2009 40312 Insurance Credit-Unclaimed Retraction Completed 04/25/2009 30656 Allergy Extract/Prof. Services Completed 04/20/2009 51824 Single Allergen Shot, No Extract Completed 04/05/2009 69342 Single Allergen Shot, No Extract Completed 03/22/2009 62004 Single Allergen Shot, No Extract Completed 03/08/2009 86796 Single Allergen Shot, No Extract Completed 02/22/2009 23752 Single Allergen Shot, No Extract Completed 02/08/2009 43159 Single Allergen Shot, No Extract Completed 02/04/2009 43211 Removal Wax Impaction Completed 01/25/2009 49875 Single Allergen Shot, No Extract Completed 01/07/2009 58995 Single Allergen Shot, No Extract Completed 12/24/2008 45393 Single Allergen Shot, No Extract Completed 12/10/2008 05448 Single Allergen Shot, No Extract Completed 11/30/2008 81223 Single Allergen Shot, No Extract Completed 11/16/2008 08507 Single Allergen Shot, No Extract Completed 11/04/2008 23412 Intradermals Completed 11/04/2008 38044 Allergy Extract/Prof. Services Completed 11/01/2008 71620 Removal Wax Impaction Completed 10/21/2008 71005 Single Allergen Shot, No Extract Completed 10/08/2008 33730 Single Allergen Shot, No Extract Completed 09/24/2008 00945 Single Allergen Shot, No Extract Completed 09/09/2008 92964 Single Allergen Shot, No Extract Completed 08/26/2008 29618 Single Allergen Shot, No Extract Completed 08/12/2008 91676 Single Allergen Shot, No Extract Completed 08/03/2008 44334 Removal Wax Impaction Completed 07/30/2008 02099 Single Allergen Shot, No Extract Completed 07/13/2008 73041 Single Allergen Shot, No Extract Completed 06/29/2008 43182 Single Allergen Shot, No Extract Completed 06/15/2008 11814 Single Allergen Shot, No Extract Completed 06/01/2008 88270 Single Allergen Shot, No Extract Completed 05/18/2008 03240 Single Allergen Shot, No Extract Completed 05/04/2008 80302 Single Allergen Shot, No Extract Completed 04/30/2008 78791 Binocular Microscopy Completed 04/27/2008 00416 Allergy Extract/Prof. Services Completed 04/27/2008 72980 Allergy Extract/Prof. Services Completed 04/27/2008 65184 Intradermals Completed 04/27/2008 12759 Intradermals Completed 04/06/2008 85590 Single Allergen Shot, No Extract Completed 04/06/2008 76880 Single Allergen Shot, No Extract Completed 03/23/2008 59475 Single Allergen Shot, No Extract Completed 03/23/2008 20431 Single Allergen Shot, No Extract Completed 03/09/2008 25408 Single Allergen Shot, No Extract Completed 03/09/2008 14136 Single Allergen Shot, No Extract Completed 02/24/2008 23589 Single Allergen Shot, No Extract Completed 02/24/2008 85779 Single Allergen Shot, No Extract Completed 02/10/2008 06751 Single Allergen Shot, No Extract Completed 02/10/2008 15402 Single Allergen Shot, No Extract Completed 01/27/2008 69120 Binocular Microscopy Completed 01/27/2008 79476 Single Allergen Shot, No Extract Completed 01/27/2008 96665 Single Allergen Shot, No Extract Completed 01/19/2008 22714 Prick Test Completed 01/19/2008 32660 Prick Test Completed 01/13/2008 79221 Single Allergen Shot, No Extract Completed 01/13/2008 17752 Single Allergen Shot, No Extract Completed 12/30/2007 18851 Single Allergen Shot, No Extract Completed 12/30/2007 75457 Single Allergen Shot, No Extract Completed 12/16/2007 86462 Allergy Extract/Prof. Services Completed 12/16/2007 81866 Allergy Extract/Prof. Services Completed 12/16/2007 77230 Single Allergen Shot, No Extract Completed 12/16/2007 79899 Single Allergen Shot, No Extract Completed 12/16/2007 95700 Intradermals Completed 12/16/2007 90844 Intradermals Completed 12/02/2007 55730 Allergy Injection X2,No Extract Completed 12/02/2007 34081 Allergy Injection X2,No Extract Completed 11/25/2007 03768 Binocular Microscopy Completed 11/25/2007 54698 Removal Wax Impaction Completed 11/18/2007 63557 Allergy Injection X2,No Extract Completed 11/18/2007 34312 Allergy Injection X2,No Extract Completed 11/04/2007 43401 Allergy Injection X2,No Extract Completed 11/04/2007 86637 Allergy Injection X2,No Extract Completed 10/21/2007 36854 Allergy Injection X2,No Extract Completed 10/21/2007 83261 Allergy Injection X2,No Extract Completed 10/07/2007 94171 Allergy Injection X2,No Extract Completed 10/07/2007 18020 Allergy Injection X2,No Extract Completed 09/30/2007 95381 Allergy Injection X2,No Extract Completed 09/30/2007 19926 Allergy Injection X2,No Extract Completed 09/18/2007 22195 Allergy Injection X2,No Extract Completed 09/05/2007 53305 Intradermals Completed 09/05/2007 64360 Allergy Injection X2,No Extract Completed 09/05/2007 64268 Allergy Extract/Prof. Services Completed 08/26/2007 87422 Allergy Injection X2,No Extract Completed 08/25/2007 87581 Removal Wax Impaction Completed 08/15/2007 56731 Allergy Injection X2,No Extract Completed 08/05/2007 67046 Allergy Injection X2,No Extract Completed 07/25/2007 67994 Allergy Injection X2,No Extract Completed 07/17/2007 84998 Allergy Extract/Prof. Services Completed 07/17/2007 22767 Single Allergen Shot, No Extract Completed 07/17/2007 56940 Intradermals Completed 07/09/2007 18783 Allergy Injection X2,No Extract Completed 06/27/2007 03630 Allergy Injection X2,No Extract Completed 06/16/2007 28009 Allergy Injection X2,No Extract Completed 06/06/2007 46818 Allergy Injection X2,No Extract Completed 05/23/2007 89421 Allergy Injection X2,No Extract Completed 05/20/2007 29544 Removal Wax Impaction Completed 05/09/2007 10445 Allergy Injection X2,No Extract Completed 04/24/2007 87874 Allergy Extract/Prof. Services Completed 04/24/2007 55554 Allergy Injection X2,No Extract Completed 04/24/2007 74593 Intradermals Completed 04/04/2007 57512 Allergy Injection X2,No Extract Completed 03/21/2007 76372 Allergy Injection X2,No Extract Completed 03/07/2007 29486 Allergy Injection X2,No Extract Completed 02/25/2007 33617 Allergy Injection X2,No Extract Completed 02/18/2007 28738 Removal Wax Impaction Completed 02/04/2007 82486 Allergy Injection X2,No Extract Completed 01/24/2007 49683 Allergy Injection X2,No Extract Completed 01/23/2007 61366 Allergy Injection X2,No Extract Completed 01/10/2007 76423 Allergy Injection X2,No Extract Completed 01/06/2007 29020 Intradermals Completed 01/06/2007 58834 Single Allergen Shot, No Extract Completed 01/06/2007 91339 Allergy Extract/Prof. Services Completed 12/18/2006 74862 Allergy Injection X2,No Extract Completed 12/06/2006 86412 Allergy Injection X2,No Extract Completed 11/25/2006 60104 Allergy Injection X2,No Extract Completed 11/15/2006 80246 Allergy Extract/Prof. Services Completed 11/15/2006 59005 Allergy Injection X2,No Extract Completed 11/15/2006 64923 Intradermals Completed 11/01/2006 41572 Allergy Injection X2,No Extract Completed 10/21/2006 15315 Allergy Injection X2,No Extract Completed 10/11/2006 77184 Allergy Injection X2,No Extract Completed 09/30/2006 82198 Allergy Injection X2,No Extract Completed 09/20/2006 79869 Allergy Injection X2,No Extract Completed 09/09/2006 32664 Allergy Injection X2,No Extract Completed 09/09/2006 57860 Removal Wax Impaction Completed 08/30/2006 22307 Intradermals Completed 08/30/2006 92304 Allergy Injection X2,No Extract Completed 08/30/2006 93232 Allergy Extract/Prof. Services Completed 08/19/2006 54980 Allergy Injection X2,No Extract Completed 08/09/2006 32528 Allergy Injection X2,No Extract Completed 07/30/2006 17935 Allergy Injection X2,No Extract Completed 07/18/2006 73137 Allergy Injection X2,No Extract Completed 07/08/2006 31685 Allergy Injection X2,No Extract Completed 06/28/2006 69232 Allergy Extract/Prof. Services Completed 06/28/2006 62221 Allergy Injection X2,No Extract Completed 06/28/2006 66109 Intradermals Completed 06/18/2006 57962 Allergy Injection X2,No Extract Completed 06/18/2006 32198 Removal Wax Impaction Completed 06/10/2006 77512 Allergy Injection X2,No Extract Completed 05/31/2006 07544 Allergy Injection X2,No Extract Completed 05/20/2006 85441 Allergy Injection X2,No Extract Completed 05/06/2006 93843 Allergy Injection X2,No Extract Completed 05/03/2006 79492 Allergy Extract/Prof. Services Completed 05/03/2006 18512 Single Allergen Shot, No Extract Completed 05/03/2006 30726 Intradermals Completed 04/22/2006 44048 Allergy Injection X2,No Extract Completed 04/12/2006 03652 Allergy Injection X2,No Extract Completed 04/09/2006 44150 Removal Wax Impaction Completed 04/02/2006 90200 Allergy Injection X2,No Extract Completed 03/21/2006 48929 Allergy Injection X2,No Extract Completed 03/12/2006 84441 Allergy Injection X2,No Extract Completed 02/28/2006 14299 Allergy Injection X2,No Extract Completed 02/18/2006 89020 Allergy Extract/Prof. Services Completed 02/18/2006 53846 Allergy Injection X2,No Extract Completed 02/18/2006 32430 Intradermals Completed 02/07/2006 81363 Allergy Injection X2,No Extract Completed 01/25/2006 42003 Prick Test Completed 01/25/2006 77451 Allergy Injection X2,No Extract Completed 01/17/2006 33272 Allergy Extract/Prof. Services Completed 01/17/2006 91876 Allergy Injection X2,No Extract Completed 01/17/2006 93948 Intradermals Completed 01/07/2006 24863 Allergy Injection X2,No Extract Completed 01/01/2006 51723 Removal Wax Impaction Completed 12/27/2005 76097 Allergy Injection X2,No Extract Completed 12/17/2005 22537 Allergy Injection X2,No Extract Completed 12/06/2005 06251 Allergy Injection X2,No Extract Completed 11/26/2005 03467 Allergy Injection X2,No Extract Completed 11/15/2005 17354 Allergy Injection X2,No Extract Completed 11/05/2005 40567 Allergy Injection X2,No Extract Completed 10/22/2005 76505 Allergy Injection X2,No Extract Completed 10/10/2005 90186 Intradermals Completed 10/10/2005 72819 Allergy Injection X2,No Extract Completed 10/10/2005 74887 Allergy Extract/Prof. Services Completed 10/02/2005 42583 Removal Wax Impaction Completed 10/01/2005 81164 Allergy Injection X2,No Extract Completed 09/20/2005 18905 Allergy Extract/Prof. Services Completed 09/20/2005 98715 Allergy Injection X2,No Extract Completed 09/20/2005 84044 Intradermals Completed 09/10/2005 39663 Allergy Injection X2,No Extract Completed 08/27/2005 65007 Allergy Injection X2,No Extract Completed 08/13/2005 16628 Allergy Injection X2,No Extract Completed 08/06/2005 80493 Allergy Injection X2,No Extract Completed 07/31/2005 47463 Allergy Injection X2,No Extract Completed 2005 26822 Removal Wax Impaction Completed 06/25/2005 14005 Allergy Injection X2,No Extract Completed 06/11/2005 72548 Allergy Injection X2,No Extract Completed 05/31/2005 71057 Allergy Injection X2,No Extract Completed 05/21/2005 77431 Allergy Extract/Prof. Services Completed 05/21/2005 34583 Allergy Injection X2,No Extract Completed 05/21/2005 00628 Intradermals Completed 05/10/2005 23868 Allergy Extract/Prof. Services Completed 05/10/2005 44219 Allergy Injection X2,No Extract Completed 05/10/2005 32338 Intradermals Completed 05/03/2005 16322 Allergy Injection X2,No Extract Completed 04/23/2005 52784 Allergy Injection X2,No Extract Completed 04/18/2005 82027 Allergy Injection X2,No Extract Completed 04/09/2005 30444 Allergy Injection X2,No Extract Completed 04/05/2005 23136 Allergy Injection X2,No Extract Completed 03/29/2005 80090 Allergy Injection X2,No Extract Completed 03/12/2005 80188 Allergy Injection X2,No Extract Completed 03/06/2005 76464 Allergy Injection X2,No Extract Completed 03/01/2005 21081 Intradermals Completed 03/01/2005 54065 Allergy Injection X2,No Extract Completed 03/01/2005 13219 Allergy Extract/Prof. Services Completed 02/19/2005 12596 Allergy Injection X2,No Extract Completed 02/01/2005 59824 Allergy Extract/Prof. Services Completed 02/01/2005 97372 Allergy Injection X2,No Extract Completed 02/01/2005 57951 Intradermals Completed 02/01/2005 31033 Comprehensive Audiogram Completed 01/25/2005 44403 Allergy Injection X2,No Extract Completed 01/18/2005 49506 Allergy Injection X2,No Extract Completed 01/11/2005 50099 Allergy Injection X2,No Extract Completed 01/02/2005 40977 Allergy Injection X2,No Extract Completed 12/26/2004 73246 Allergy Injection X2,No Extract Completed 12/18/2004 88286 Allergy Injection X2,No Extract Completed 12/04/2004 93027 Allergy Injection X2,No Extract Completed 11/27/2004 51439 Allergy Injection X2,No Extract Completed 11/16/2004 87637 Intradermals Completed 11/16/2004 49625 Allergy Injection X2,No Extract Completed 11/16/2004 31928 Allergy Extract/Prof. Services Completed 11/13/2004 63005 Allergy Injection X2,No Extract Completed 11/02/2004 93542 Tympanometry Completed 11/02/2004 79842 Comprehensive Audiogram Completed 10/23/2004 56725 Allergy Extract/Prof. Services Completed 10/23/2004 44480 Allergy Injection X2,No Extract Completed 10/23/2004 34699 Intradermals Completed 10/16/2004 31823 Allergy Injection X2,No Extract Completed 10/09/2004 08770 Allergy Injection X2,No Extract Completed 10/05/2004 27900 Allergy Injection X2,No Extract Completed 09/26/2004 54823 Allergy Injection X2,No Extract Completed 09/19/2004 70526 Allergy Injection X2,No Extract Completed 09/11/2004 06560 Allergy Injection X2,No Extract Completed 09/04/2004 93728 Allergy Injection X2,No Extract Completed 08/29/2004 86635 Intradermals Completed 08/29/2004 98495 Allergy Injection X2,No Extract Completed 08/29/2004 28212 Allergy Extract/Prof. Services Completed 08/24/2004 07851 Allergy Injection X2,No Extract Completed 08/14/2004 60759 Allergy Injection X2,No Extract Completed 07/31/2004 65105 Allergy Extract/Prof. Services Completed 07/31/2004 69365 Allergy Injection X2,No Extract Completed 07/31/2004 71678 Intradermals Completed 07/18/2004 44647 Allergy Injection X2,No Extract Completed 07/11/2004 01905 Allergy Injection X2,No Extract Completed 07/06/2004 67547 Allergy Injection X2,No Extract Completed 07/06/2004 87605 Removal Wax Impaction Completed 06/26/2004 68623 Allergy Injection X2,No Extract Completed 06/19/2004 70105 Allergy Injection X2,No Extract Completed 06/14/2004 35809 Allergy Injection X2,No Extract Completed 06/08/2004 94021 Allergy Injection X2,No Extract Completed 06/01/2004 15627 Intradermals Completed 06/01/2004 08066 Allergy Injection X2,No Extract Completed 06/01/2004 73622 Allergy Extract/Prof. Services Completed 05/22/2004 22710 Allergy Injection X2,No Extract Completed 05/16/2004 39226 Allergy Injection X2,No Extract Completed 05/09/2004 70420 Allergy Extract/Prof. Services Completed 05/09/2004 37077 Allergy Injection X2,No Extract Completed 05/09/2004 36577 Intradermals Completed 05/01/2004 92655 Allergy Injection X2,No Extract Completed 04/24/2004 99857 Allergy Injection X2,No Extract Completed 04/17/2004 87273 Allergy Injection X2,No Extract Completed 04/12/2004 11505 Allergy Injection X2,No Extract Completed 04/06/2004 57961 Allergy Injection X2,No Extract Completed 03/27/2004 68229 Allergy Injection X2,No Extract Completed 03/21/2004 78405 Intradermals Completed 03/21/2004 20455 Allergy Injection X2,No Extract Completed 03/21/2004 37349 Allergy Extract/Prof. Services Completed 03/14/2004 27922 Allergy Injection X2,No Extract Completed 03/06/2004 11194 Allergy Injection X2,No Extract Completed 02/28/2004 71643 Allergy Extract/Prof. Services Completed 02/28/2004 60806 Allergy Injection X2,No Extract Completed 02/28/2004 40182 Intradermals Completed 02/21/2004 08137 Allergy Injection X2,No Extract Completed 02/14/2004 90214 Allergy Injection X2,No Extract Completed 02/09/2004 09624 Allergy Injection X2,No Extract Completed 02/03/2004 29557 Allergy Injection X2,No Extract Completed 01/24/2004 05013 Allergy Injection X2,No Extract Completed 01/17/2004 01657 Allergy Injection X2,No Extract Completed 01/10/2004 72701 Allergy Injection X2,No Extract Completed 01/04/2004 80593 Intradermals Completed 01/04/2004 24484 Allergy Injection X2,No Extract Completed 01/04/2004 63064 Allergy Extract/Prof. Services Completed 12/30/2003 74341 Allergy Injection X2,No Extract Completed 12/20/2003 40484 Allergy Injection X2,No Extract Completed 11/29/2003 95524 Allergy Extract/Prof. Services Completed 11/29/2003 67126 Allergy Injection X2,No Extract Completed 11/29/2003 14693 Intradermals Completed 11/22/2003 88538 Allergy Injection X2,No Extract Completed 11/15/2003 83146 Allergy Injection X2,No Extract Completed 11/03/2003 79782 Allergy Injection X2,No Extract Completed 10/26/2003 73241 Allergy Injection X2,No Extract Completed 10/18/2003 88484 Allergy Injection X2,No Extract Completed 10/11/2003 71783 Allergy Injection X2,No Extract Completed 10/04/2003 77932 Allergy Injection X2,No Extract Completed 09/27/2003 05135 Allergy Injection X2,No Extract Completed 09/20/2003 85660 Allergy Injection X2,No Extract Completed 09/14/2003 76992 Allergy Injection X2,No Extract Completed 09/06/2003 02024 Allergy Extract/Prof. Services Completed 09/06/2003 09399 Allergy Injection X2,No Extract Completed 09/06/2003 90028 Intradermals Completed 08/30/2003 13579 Allergy Extract/Prof. Services Completed 08/30/2003 00838 Allergy Injection X2,No Extract Completed 08/23/2003 24289 Allergy Extract/Prof. Services Completed 08/23/2003 36481 Allergy Injection X2,No Extract Completed 08/17/2003 48864 Allergy Extract/Prof. Services Completed 08/17/2003 91834 Allergy Injection X2,No Extract Completed 08/09/2003 15435 Allergy Injection X2,No Extract Completed 08/02/2003 61540 Allergy Injection X2,No Extract Completed 07/26/2003 74382 Allergy Injection X2,No Extract Completed 07/19/2003 46447 Allergy Injection X2,No Extract Completed 07/13/2003 14678 Allergy Injection X2,No Extract Completed 2003 32064 Allergy Injection X2,No Extract Completed 06/30/2003 82340 Removal Wax Impaction Completed 06/28/2003 41707 Allergy Injection X2,No Extract Completed 06/22/2003 25236 Allergy Injection X2,No Extract Completed 06/15/2003 82146 Allergy Injection X2,No Extract Completed 06/07/2003 73530 Allergy Extract/Prof. Services Completed 06/07/2003 95082 Allergy Injection X2,No Extract Completed 06/07/2003 92639 Intradermals Completed 05/31/2003 66540 Allergy Extract/Prof. Services Completed 05/31/2003 72187 Allergy Injection X2,No Extract Completed 05/24/2003 20217 Allergy Injection X2,No Extract Completed 05/17/2003 00501 Allergy Injection X2,No Extract Completed 05/10/2003 34093 Allergy Injection X2,No Extract Completed 05/04/2003 57838 Allergy Injection X2,No Extract Completed 04/26/2003 64070 Allergy Injection X2,No Extract Completed 04/19/2003 83283 Allergy Injection X2,No Extract Completed 03/04/2003 66437 Allergy Extract/Prof. Services Completed Encounters Type Date Location Provider CPT E/M Dx Office Visit 11/18/2017 11:30a Polaris,After 07/29/07 Reddy Kirby 51835 J30.89 Lisa Rush R51 J32.4 Office Visit 01/21/2017 10:00a Polaris,After 07/29/07 Reddy Rush, 40216 R49.0 Lisa J30.1 R05 Office Visit 04/26/2015 2:15p Polaris,After 07/29/07 Reddy Rush, 20208 H61.23 Lisa J30.1 R51 Office Visit 12/16/2012 10:00a Polaris,After 07/29/07 [place] [address] 477.0 477.8 698.9 Office Visit 05/31/2011 2:30p Polaris,After 07/29/07 [place] [address] 477.0 477.8 380.4 Office Visit 04/11/2009 3:00p Polaris,After 07/29/07 [place] [address] 477.8 477.0 528.2 Office Visit 04/30/2008 10:00a Polaris,After 07/29/07 [place] [address] 477.8 380.4 Office Visit 01/27/2008 11:00a Polaris,After 07/29/07 [place] [address] 477.0 477.8 380.4 Office Visit 05/20/2007 10:15a Polaris,After 07/29/07 Reddy Rush 70646 477.0 MLeydiDLeydi 380.4 Office Visit 12/02/2006 3:00p Pol[facility],After 07/29/07 Reddy Rush, 44759 704.8 M.D. 380.4 Office Visit 05/07/2005 10:30a Pol[facility],After 07/29/07 Reddy Rush, 95845 380.4 M.D. 477.8 Office Visit 02/10/2004 1:45p Polaris,After 07/29/07 Peter Brian, 84715 473.2 M.D. Office Visit 12/01/2003 10:15a Polaris,After 07/29/07 Peter Brian, 67654 380.23 M.D. 477.8 Office Visit 09/30/2003 1:30p Polaris,After 07/29/07 Peter Brian, 16206 380.10 M.D. Office Visit 09/10/2003 4:00p Polaris,After 07/29/07 Peter Brian, 99714 380.10 M.D. Plan of Care 11/18/2017 - Reddy Rush M.D.J30.89 Other allergic rhinitisComments: the patient is doing well from an allergic rhinitis standpoint. She has been getting her immunotherapy. she had allergy testing [facility]. We do not test for exactly the same thing, but there is a lot of overlap and she is getting therapy for the same classes for the most part.R51 IjayidgrL12.4 Chronic pansinusitisNew Medication:Cefdinir 300 mgComments:The patient's chief complaint today is actually a chronic frontal headache. She has been doing relatively well from this standpoint but has had problems in the past. She had a sinus CT in 1998 and onein 2002 both that show sinusitis. I was able to look at the 2003 one again and given the extent of disease at that time it is possible that it has progressed over time. My recommendation is course of ABX followed by another CT if needed if her headaches do not improve.
--- OUTSIDE RECORDS SUMMARY | 2017-12-01 23:40 | XMS REPORT ---
:1930 External Reference #:[id number] Author Organization [facility] Address [address] [address] Phone [phone] Care Team Providers Name Role Phone Freda Souza MD Primary Care Physician Unavailable Payers Type Date Identification Numbers Payment Provider Subscriber Medicare Primary Effective: Policy Number: Medicare Tami Kyle 1996 [id number] PayID: [id number] [address] [place] [address] Medigap Part B Effective: Policy Number: [facility] Tami Kyle 2013 [id number] Healthcare PayID: [id number] [address] [place] [address] Advance Directives Type Date Description Status Comment Other Directive 01/31/2000 Health Care Proxy Current and Verified Other Directive 01/31/2000 Living Will Current and Verified Problems Date Description Provider Status Onset: 08/05/2013 Benign essential hypertension Briana Gay M.D. Active Onset: 06/19/2014 Carcinoma of breast Freda Souza M.D. Active Onset: 05/08/2017 Arthroplasty of knee Gabby Moon M.D. Active Onset: 12/12/2016 Acquired genu valgum Gabby Moon M.D. Active Onset: 12/12/2016 Knee joint effusion Gabby Moon M.D. Active Onset: 07/18/2016 Localized, primary osteoarthritis Gabby Moon M.D. Active Onset: 02/20/2016 Trochanteric bursitis Gabby Moon M.D. Active Family History Date Family Member(s) Problem(s) Comments General Cancer Father due to Natural () - lived to well Causes past his 80s : (age 97 Mother due to Natural Years) Causes Second Sister due to Natural () - Bronchiectasis Causes and multiple pulmonary problems Social History Type Date Description Comments Marital Status Single never Lives With Alone at [facility] - socially connected with yarsanism, [employer], exercise group Occupation [employer] Occupation Retired ETOH Use Denies alcohol use Smoking Patient has never smoked Recreational Drug Use Denies Drug Use Exercise Type/Frequency Exercises regularly Allergies, Adverse Reactions, Alerts Date Description Reaction Status Severity Comments 08/05/2013 Aspirin active 08/05/2013 Codeine active 09/21/2016 Lisinopril Urticaria, lip swelling active Medications Medication Date Status Form Strength Qnty SIG Indications Ordering Provider Hydrochlorothiazi 10/08 Active Tablets 12.5mg 90tab 2 by I10 Freda s mouth Cotton, every day M.D. Amoxicillin 08/26 Active Tablets 500mg 4tabs take 4 tablets Red, by mouth M.D. 1 hour before dental procedure Genteal Tears 07/04 Active Solution Freda /2017 Cotton, M.D. Azelastine HCL 07/04 Active Solution 0.1% 90ml spray one I10 Freda (Nasal) spray in Cotton, each M.D. nostril twice a day as needed Amlodipine 09/27 Active Tablets 5mg 180ta 1 by I10 Freda Besylate bs mouth Cotton, once M.D. daily Fluticasone 09/18 Active Suspension 50mcg/Act 48uni use 2 Freda Propionate ts sprays in Cotton, each M.D. nostril daily as needed Multivitamins 08/05 Active Capsules 30cap 1 capsule frederick Gay M.D. Calcium 600 + D 08/05 Active Tablets 600-400mg 60tab 1 po -Unit frederick Gay M.D. Preservision 08/05 Active Tablets 60tab 1 po bid Briana frederick Gay M.D. Tylenol Extra 08/05 Active Tablets 500mg 100ta 2 po prn claribel Gay M.D. Refresh 08/05 Active Solution 1.4-0.6% Lisa Gay Fish Oil Maximum 08/05 Active Capsules 1200mg 2 po qd Briana Lisa Gay L-Lysine HCL 08/05 Active Capsules 500mg Lisa Gay Sertraline HCL 08/05 Active Tablets 50mg 90tab Take s one-half Cotton, tablet by M.DLeydi mouth every day Docusate Sodium Active Capsules 100mg 1 by Unknown mouth twice a day Fexofenadine HCL Active Tablets 180mg 1 PO qd Unknown Keflex 03/11 Hx Capsules 500mg 28cap 1 tab by [id number] s mouth Red, - four M.D. 03/21 times day Cephalexin 02/18 Hx Tablets 500mg 20tab 1 by M17.11 s mouth Red, - four M.D. 02/24 times day for 5 days Hydrochlorothiazi 11/26 Hx Tablets 12.5mg 30tab 1 by I10 s mouth Cotton, - every day M.D. 03/10 Torsemide 11/19 Hx Tablets 5mg 30tab /2 by I10 s mouth Cotton, - every day M.D. 11/26 Medrol 09/05 Hx TBPK 4mg 21uni as ts directed LENO Stewart - on 09/21 Advair Diskus 05/01 Hx Aerosol 100-50mcg 60uni use one /Dose ts inhalatio Harley, - n two M.D. 05/29 times a day Proair HFA 05/01 Hx Aerosol 108(90Bas 8.5un 2 puffs 4 e) its times Cotton, - mcg/Act daily as M.D. 12/11 Azithromycin 05/01 Hx Tablets 250mg 6tabs 2 tabs by mouth on Cotton, - day 1; 1 M.D. 06/11 tab mouth every day on days 2-5 Amlodipine 04/16 Hx Tablets 10mg 90tab 1 po by I10 Freda Bes s mouth Cotton, - every day M.D. 09/27 Amlodipine 10/13 Hx Tablets 5mg 135ta 1 tablet bs qd to be Cotton, - taken M.D. 04/16 with 2.5mg tablet Amlodipine 10/13 Hx Tablets 2.5mg 90tab 1 by I10 s mouth Cotton, - every day M.D. 04/16 to taken with the 5 mg tablet Amlodipine 09/12 Hx Tablets 5mg 135ta 1 and 07/30 I1 bs tabs by Cotton, - mouth M.D. 10/13 Lisinopril 08/11 Hx Tablets 20mg 90tab Take 1 s tablet by Cotton, - mouth M.D. 09/06 Sulfamethoxazole/ 01/10 Hx Tablets 800-160mg 24tab 1 by 599.0 Freda Trimethoprim s mouth Cotton, - twice a M.D. 08/11 day for days prn Cipro 09/28 Hx Tablets 250mg 14tab one by Mookie Pratt s ney Cm, - twice M.D. 09/29 daily 7 days Sulfamethoxazole/ 09/23 Hx Tablets 800-160mg 6tabs 1 by 788.41 Mookie Pratt Trimethoprim mouth Soila, - twice a M.D. Amlodipine 08/10 Hx Tablets 2.5mg 90tab 1 by I1ylate s mouth Cotton, - every day M.D. 09/12 Hydroxyzine HCL 06/17 Hx Tablets 25mg 120ta 1 tab by Freda /2014 bs mouth Cotton, - three to M.D. 06/11 times daily as needed for ithching Lisinopril-Hydroc 02/19 Hx Tablets 20-12.5mg 90tab 1 by 0 Freda hlorothiazide s mouth Cotton, - every day M.D. 08/11 Lisinopril/Hydroc 08/05 Hx Tablets 20-12.5mg 90tab 1 by Freda hlorothiazide s mouth Cotton, - every day M.D. 02/19 Fluticasone 08/05 Hx Suspension 50mcg/Act 3unit 1 spray Freda Propionate s each Cotton, - nostril M.D. 09/04 daily needed Fexofenadine HCL 08/05 Hx Tablets 180mg 30tab 1 po qd s Not Victor Hugo, - Taking M.D. 09/05 Tylenol PM 08/05 Hx Tablets 1 tablets at Victor Hugo, - bedtime M.D. 04/08 Tahira 128 08/05 Hx Ointment 5% Victor Hugo - M.DLeydi 06/03 Vitamin D3 08/05 Hx Tablets Victor Hugo - M.DLeydi 09/23 Amlodipine 08/05 Hx 25mg 1 po qday Victor Hugo - M.DLeydi 08/05 Amlodipine Hx Tablets 2.5mg 90tab take 1 Briana Besylate s tablet Victor Hugo, - daily M.D. 09/09 Tamoxifen Citrate Hx Tablets 20mg 1 po qd Unknown /0000 - 12/16 Advil Hx Tablets 200mg as needed Unknown /0000 - 11/26 Advair Diskus Hx Aerosol 100-50mcg Inhale 1 Unknown /0000 /Dose Puffs By - Mouth 09/04 Daily Symbicort Hx Aerosol 80-4.5mcg 2 puff Unknown /0000 /Act twice a - day 04/28 Qnasl Hx Aerosol 80mcg/Act 2 Unknown /0000 inhalatio - ns in 12/20 nostril once daily Tussin CF Cough Hx Liquid 5-10-100m at night Unknown & Cold /0000 g/5ML otc - 06/03 Xyzal Hx Tablets 5mg once Unknown /0000 daily prn - 01/02 Prednisone Hx Tablets 5mg Unknown /0000 - 10/16 Sulfamethoxazole/ Hx Tablets 800-160mg Unknown Trimethoprim DS /0000 - 06/03 Lisinopril Hx Tablets 20mg Unknown /0000 - 10/16 Fluzone High-Dose Hx Frida 0.5ml Inject as Unknown /0000 Directed - 12/20 Advair Diskus 00 Hx Aerosol 100-50mcg Inhale 1 Unknown /0000 /Dose Puffs By - Mouth 12/11 Daily Advair Diskus 00 Hx Aerosol 100-50mcg Unknown /0000 /Dose - 10/16 Azithromycin Hx Tablets 250mg Take 2 Unknown / Tablets - By Mouth 10/16 Then Take 1 Tablet Daily For 4 Days Azithromycin Hx Tablets 250mg Unknown /0000 - 10/16 Levocetirizine Hx Tablets 5mg 1 by Unknown Dihydrochloride / mouth prn - 10/08 Medications Administered in Office Medication Date Status Form Strength Qnty SIG Indications Ordering Provider Influenza,Unsp Administered Injection Unknown ecified 017 Depomedrol Administered Injection Gabby 40MG Roby Moon M.D. Depomedrol Administered Injection Dalton 40MG Roby Hoffman M.D. Depomedrol Administered Injection Dalton 40MG 016 Lisa Hoffman Depomedrol Administered Injection Gabby 40MG Roby Moon M.D. Depomedrol Administered Injection Gabby 80MG Hoda Moon M.D. Depomedrol Administered Injection Gabby 80MG Hoda Moon M.D. Immunizations CPT Code Status Date Vaccine Lot # [id number] Given 05/17/2015 Influenza Virus Vaccine, Quadrivalent, Split, [id number] Preservative Free [id number] Given 05/17/2015 Pneumococcal Conjugate Vaccine 13 Valent For [id number] Intramuscular Use 54844 Given 05/06/2014 Influenza Virus Vaccine, Quadrivalent, Split, Preservative Free 28040 Given 05/24/2012 Fluzone High Dose 87802 Given 06/02/2010 Zoster (Zostavax) Vital Signs Date Vital Result Comment 11/08/2017 Weight 151.00 lb Heart Rate 61 /min BP Systolic Sitting 160 mmHg BP Diastolic Sitting 85 mmHg Body Temperature 97.3 F O2 % BldC Oximetry 98 % 10/08/2017 Weight 151.00 lb Heart Rate 68 /min BP Systolic 172 mmHg 5 min later right arm BP Diastolic 80 mmHg 5 min later right arm BP Systolic Sitting 170 mmHg Right arm BP Diastolic Sitting 78 mmHg Right arm BP Systolic Standing 191 mmHg Home BP machine BP Diastolic Standing 99 mmHg Home BP machine Body Temperature 97.3 F O2 % BldC Oximetry 98 % 09/10/2017 Weight 150.00 lb Heart Rate 78 /min BP Systolic 130 mmHg BP Diastolic 72 mmHg Body Temperature 97.3 F O2 % BldC Oximetry 98 % 07/04/2017 Height 66.5 inches 5'6.50" Weight 145.25 lb Heart Rate 66 /min BP Systolic 140 mmHg BP Diastolic 78 mmHg O2 % BldC Oximetry 98 % BMI (Body Mass Index) 23.1 kg/m2 06/03/2017 Height 66.5 inches 5'6.50" Weight 139.00 lb Heart Rate 71 /min BP Systolic 126 mmHg BP Diastolic 66 mmHg Body Temperature 97.6 F O2 % BldC Oximetry 98 % BMI (Body Mass Index) 22.1 kg/m2 05/08/2017 Height 66.5 inches 5'6.50" Weight 138.00 lb Heart Rate 64 /min BP Systolic 120 mmHg BP Diastolic 81 mmHg Body Temperature 97.8 F Pain Level 2 BMI (Body Mass Index) 21.9 kg/m2 03/22/2017 Height 66.5 inches 5'6.50" Weight 138.00 lb BP Systolic 128 mmHg BP Diastolic 74 mmHg Respiratory Rate 18 /min Body Temperature 97.8 F Pain Level 0 BMI (Body Mass Index) 21.9 kg/m2 03/11/2017 Weight 138.00 lb Heart Rate 80 /min BP Systolic Sitting 125 mmHg BP Diastolic Sitting 68 mmHg Body Temperature 98.4 F Pain Level 0 02/25/2017 Height 66.5 inches 5'6.50" Weight 143.00 lb Heart Rate 68 /min BP Systolic 130 mmHg BP Diastolic 88 mmHg Respiratory Rate 16 /min Body Temperature 98.5 F Pain Level 3 BMI (Body Mass Index) 22.7 kg/m2 02/18/2017 Height 66.5 inches 5'6.50" Weight 143.00 lb Heart Rate 75 /min BP Systolic 138 mmHg BP Diastolic 75 mmHg Body Temperature 97.8 F Pain Level 4 BMI (Body Mass Index) 22.7 kg/m2 01/25/2017 Height 66.5 inches 5'6.50" Weight 142.00 lb Heart Rate 72 /min BP Systolic 140 mmHg BP Diastolic 88 mmHg Respiratory Rate 16 /min Body Temperature 96.8 F Pain Level 0 BMI (Body Mass Index) 22.6 kg/m2 01/18/2017 Weight 142.50 lb Heart Rate 69 /min BP Systolic 142 mmHg BP Diastolic 80 mmHg Body Temperature 96.9 F O2 % BldC Oximetry 96 % 01/03/2017 Height 66.5 inches 5'6.50" Weight 152.00 lb Heart Rate 68 /min BP Systolic 148 mmHg BP Diastolic 82 mmHg Respiratory Rate 16 /min Body Temperature 97.6 F Pain Level 0 BMI (Body Mass Index) 24.2 kg/m2 12/20/2016 Weight 149.00 lb Heart Rate 66 /min BP Systolic Sitting 140 mmHg BP Diastolic Sitting 66 mmHg Respiratory Rate 16 /min 12/12/2016 Height 66.5 inches 5'6.50" Weight 155.00 lb Heart Rate 64 /min BP Systolic 161 mmHg BP Diastolic 84 mmHg BMI (Body Mass Index) 24.6 kg/m2 11/19/2016 Weight 155.50 lb Heart Rate 71 /min BP Systolic 128 mmHg BP Diastolic 62 mmHg Body Temperature 98.1 F O2 % BldC Oximetry 96 % 10/16/2016 Height 65 inches 5'5" Weight 150.00 lb Heart Rate 56 /min BP Systolic 150 mmHg BP Diastolic 80 mmHg O2 % BldC Oximetry 98 % BMI (Body Mass Index) 25.0 kg/m2 09/06/2016 Weight 152.00 lb with shoes Heart Rate 56 /min BP Systolic 146 mmHg BP Diastolic 70 mmHg O2 % BldC Oximetry 96 % Ra 09/04/2016 Weight 150.00 lb with shoes Heart Rate 86 /min BP Systolic 144 mmHg BP Diastolic 82 mmHg Body Temperature 97.1 F O2 % BldC Oximetry 98 % 08/17/2016 Weight 151.00 lb with shoes Heart Rate 63 /min BP Systolic Sitting 140 mmHg BP Diastolic Sitting 70 mmHg O2 % BldC Oximetry 96 % 07/18/2016 Height 66.5 inches 5'6.50" Weight 150.00 lb Heart Rate 64 /min Respiratory Rate 16 /min Pain Level 3 BMI (Body Mass Index) 23.8 kg/m2 07/17/2016 Height 66.5 inches 5'6.50" Weight 152.00 lb Heart Rate 71 /min BP Systolic 120 mmHg BP Diastolic 72 mmHg Body Temperature 98.7 F O2 % BldC Oximetry 98 % BMI (Body Mass Index) 24.2 kg/m2 2016 Height 66.5 inches 5'6.50" Weight 152.00 lb Pain Level 5 BMI (Body Mass Index) 24.2 kg/m2 06/11/2016 Height 66.5 inches 5'6.50" Weight 151.00 lb Heart Rate 67 /min BP Systolic 158 mmHg BP Diastolic 80 mmHg Body Temperature 97.7 F O2 % BldC Oximetry 98 % BMI (Body Mass Index) 24.0 kg/m2 05/10/2016 Weight 152.00 lb with shoes Heart Rate 71 /min BP Systolic Sitting 160 mmHg BP Diastolic Sitting 80 mmHg Body Temperature 97.2 F O2 % BldC Oximetry 97 % 05/03/2016 Weight 156.50 lb Heart Rate 74 /min BP Systolic Sitting 126 mmHg BP Diastolic Sitting 67 mmHg Body Temperature 98.9 F O2 % BldC Oximetry 96 % Peak Flow Meter 180 05/01/2016 Weight 155.00 lb Heart Rate 78 /min BP Systolic Sitting 140 mmHg BP Diastolic Sitting 78 mmHg Respiratory Rate 14 /min Body Temperature 98.5 F O2 % BldC Oximetry 96 % Peak Flow Meter 150 110 03/26/2016 Weight 151.00 lb Heart Rate 64 /min BP Systolic Sitting 154 mmHg BP Diastolic Sitting 70 mmHg Respiratory Rate 14 /min Body Temperature 97.9 F O2 % BldC Oximetry 97 % 02/20/2016 Height 66.5 inches 5'6.50" Weight 154.00 lb Pain Level 2 BMI (Body Mass Index) 24.5 kg/m2 11/25/2015 Weight 154.75 lb Heart Rate 69 /min BP Systolic Sitting 145 mmHg BP Diastolic Sitting 83 mmHg Body Temperature 97.3 F O2 % BldC Oximetry 99 % 10/11/2015 Weight 154.00 lb Heart Rate 70 /min BP Systolic Sitting 138 mmHg BP Diastolic Sitting 80 mmHg Respiratory Rate 14 /min Body Temperature 98.9 F O2 % BldC Oximetry 98 % 09/12/2015 Weight 154.00 lb Heart Rate 73 /min BP Systolic Sitting 188 mmHg BP Diastolic Sitting 97 mmHg Body Temperature 97.8 F O2 % BldC Oximetry 98 % 09/01/2015 Height 66.5 inches 5'6.50" Weight 160.00 lb Pain Level 0 BMI (Body Mass Index) 25.4 kg/m2 08/19/2015 Height 66.5 inches 5'6.50" Weight 160.00 lb BMI (Body Mass Index) 25.4 kg/m2 08/11/2015 Height 66.5 inches 5'6.50" Weight 160.00 lb Heart Rate 67 /min BP Systolic Sitting 152 mmHg BP Diastolic Sitting 88 mmHg Body Temperature 97.4 F O2 % BldC Oximetry 98 % BMI (Body Mass Index) 25.4 kg/m2 06/29/2015 Height 66.5 inches 5'6.50" Weight 157.00 lb Pain Level 3 BMI (Body Mass Index) 25.0 kg/m2 05/25/2015 Height 66.5 inches 5'6.50" Weight 157.00 lb BP Systolic 152 mmHg BP Diastolic 81 mmHg BMI (Body Mass Index) 25.0 kg/m2 02/28/2015 Height 66.5 inches 5'6.50" Weight 157.00 lb Heart Rate 75 /min BP Systolic 127 mmHg BP Diastolic 78 mmHg Pain Level 3 BMI (Body Mass Index) 25.0 kg/m2 01/10/2015 Weight 157.00 lb Heart Rate 65 /min BP Systolic Sitting 138 mmHg BP Diastolic Sitting 75 mmHg 12/27/2014 Height 66.5 inches 5'6.50" Weight 158.00 lb Heart Rate 64 /min BP Systolic 176 mmHg BP Diastolic 87 mmHg Pain Level 1 BMI (Body Mass Index) 25.1 kg/m2 12/06/2014 Height 66.5 inches 5'6.50" Weight 158.00 lb Heart Rate 68 /min BP Systolic 178 mmHg BP Diastolic 95 mmHg Pain Level 0 BMI (Body Mass Index) 25.1 kg/m2 11/30/2014 Weight 158.00 lb Heart Rate 75 /min BP Systolic Sitting 182 mmHg 164/86 recheck BP Diastolic Sitting 96 mmHg 164/86 recheck Body Temperature 97.7 F 11/16/2014 Weight 158.00 lb Heart Rate 66 /min BP Systolic Sitting 166 mmHg BP Diastolic Sitting 86 mmHg 09/23/2014 Weight 157.75 lb Heart Rate 76 /min BP Systolic Sitting 136 mmHg BP Diastolic Sitting 78 mmHg Body Temperature 98.7 F 08/10/2014 Height 66.5 inches 5'6.50" Weight 161.00 lb Heart Rate 76 /min BP Systolic Sitting 168 mmHg BP Diastolic Sitting 92 mmHg BMI (Body Mass Index) 25.6 kg/m2 04/08/2014 Weight 156.00 lb Heart Rate 78 /min BP Systolic Sitting 162 mmHg BP Diastolic Sitting 92 mmHg Body Temperature 98.2 F 03/04/2014 Height 66.5 inches 5'6.50" Weight 155.25 lb Heart Rate 68 /min BP Systolic Sitting 118 mmHg BP Diastolic Sitting 62 mmHg BMI (Body Mass Index) 24.7 kg/m2 12/16/2013 Weight 159.00 lb Heart Rate 72 /min BP Systolic Sitting 126 mmHg BP Diastolic Sitting 60 mmHg 11/10/2013 Weight 155.25 lb Heart Rate 64 /min BP Systolic 136 mmHg BP Diastolic 80 mmHg Respiratory Rate 16 /min Body Temperature 97.1 F 09/09/2013 Weight 157.00 lb Heart Rate 68 /min BP Systolic Sitting 146 mmHg BP Diastolic Sitting 70 mmHg 08/05/2013 Height 66 inches 5'6" Weight 157.00 lb Heart Rate 72 /min BP Systolic 146 mmHg BP Diastolic 82 mmHg BMI (Body Mass Index) 25.3 kg/m2 Results Test Date Test Result H/L Range Note Laboratory test finding 09/10/2017 Erythrocyte Sed Rate 26 mm/Hr 0-40 CBC Auto Diff 06/03/2017 White Blood Count 4.7 10^3/uL 3.5-10.8 Red Blood Count 4.32 10^6/uL 4.0-5.4 Hemoglobin 11.6 g/dL Low 12.0-16.0 Hematocrit 35 % 35-47 Mean Corpuscular Volume 81 fL 80-97 Mean Corpuscular Hemoglobin 27 pg 27-31 Mean Corpuscular HGB Conc 33 g/dL 31-36 Red Cell Distribution Width 16 % High 10.5-15 Platelet Count 256 10^3/uL 150-450 Mean Platelet Volume 8 um3 7.4-10.4 Abs Neutrophils 2.4 10^3/uL 1.5-7.7 Abs Lymphocytes 1.4 10^3/uL 1.0-4.8 Abs Monocytes 0.6 10^3/uL 0-0.8 Abs Eosinophils 0.3 10^3/uL 0-0.6 Abs Basophils 0.1 10^3/uL 0-0.2 Abs Nucleated RBC 0 10^3/uL Granulocyte % 51.2 % 38-83 Lymphocyte % 28.5 % 25-47 Monocyte % 13.1 % High 1-9 Eosinophil % 6.1 % High 0-6 Basophil % 1.1 % 0-2 Nucleated Red Blood Cells % 0 Comp Metabolic Panel 06/03/2017 Sodium 134 mmol/L 133-145 Potassium 3.7 mmol/L 3.5-5.0 Chloride 95 mmol/L Low 101-111 Co2 Carbon Dioxide 33 mmol/L High 22-32 Anion Gap 6 mmol/L 2-11 Glucose 89 mg/dL 70-100 Blood Urea Nitrogen 20 mg/dL 6-24 Creatinine 0.85 mg/dL 0.51-0.95 BUN/Creatinine Ratio 23.5 High 8-20 Calcium 10.1 mg/dL 8.6-10.3 Total Protein 7.1 g/dL 6.4-8.9 Albumin 4.0 g/dL 3.2-5.2 Globulin 3.1 g/dL 2-4 Albumin/Globulin Ratio 1.3 1-3 Total Bilirubin 0.40 mg/dL 0.2-1.0 Alkaline Phosphatase 68 U/L 34-104 Alt 10 U/L 7-52 Ast 19 U/L 13-39 Egfr Non- 63.6 >60 Egfr 81.7 >60 1 Laboratory test finding 06/03/2017 C Reactive Protein 3.36 mg/L < 5.00 2 TSH (Thyroid Stim Horm) 2.55 mcIU/mL 0.34-5.60 Laboratory test finding 02/26/2017 Troponin-I (TnI) 0.01 ng/mL <0.04 Laboratory test finding 02/25/2017 Lactic Acid 0.7 mmol/L 0.5-2.0 3 Comp Metabolic Panel 02/25/2017 Sodium 134 mmol/L 133-145 Potassium 3.3 mmol/L Low 3.5-5.0 Chloride 96 mmol/L Low 101-111 Co2 Carbon Dioxide 31 mmol/L 22-32 Anion Gap 7 mmol/L 2-11 Glucose 90 mg/dL 70-100 Blood Urea Nitrogen 13 mg/dL 6-24 Creatinine 0.84 mg/dL 0.51-0.95 BUN/Creatinine Ratio 15.5 8-20 Calcium 9.3 mg/dL 8.6-10.3 Total Protein 6.7 g/dL 6.4-8.9 Albumin 3.7 g/dL 3.2-5.2 Globulin 3.0 g/dL 2-4 Albumin/Globulin Ratio 1.2 1-3 Total Bilirubin 0.50 mg/dL 0.2-1.0 Alkaline Phosphatase 77 U/L 34-104 Alt 10 U/L 7-52 Ast 17 U/L 13-39 Egfr Non- 64.4 >60 Egfr 82.9 >60 4 Laboratory test finding 02/25/2017 Troponin-I (TnI) 0.00 ng/mL <0.04 CBC Auto Diff 02/25/2017 White Blood Count 5.7 10^3/uL 3.5-10.8 Red Blood Count 3.36 10^6/uL Low 4.0-5.4 Hemoglobin 9.4 g/dL Low 12.0-16.0 Hematocrit 29 % Low 35-47 Mean Corpuscular Volume 86 fL 80-97 Mean Corpuscular Hemoglobin 28 pg 27-31 Mean Corpuscular HGB Conc 33 g/dL 31-36 Red Cell Distribution Width 16 % High 10.5-15 Platelet Count 406 10^3/uL 150-450 Mean Platelet Volume 6 um3 Low 7.4-10.4 Abs Neutrophils 2.6 10^3/uL 1.5-7.7 Abs Lymphocytes 1.5 10^3/uL 1.0-4.8 Abs Monocytes 1.0 10^3/uL High 0-0.8 Abs Eosinophils 0.4 10^3/uL 0-0.6 Abs Basophils 0.1 10^3/uL 0-0.2 Abs Nucleated RBC 0.01 10^3/uL Granulocyte % 46.1 % 38-83 Lymphocyte % 27.1 % 25-47 Monocyte % 18.3 % High 1-9 Eosinophil % 7.4 % High 0-6 Basophil % 1.1 % 0-2 Nucleated Red Blood Cells % 0.1 Type & Screen 01/25/2017 Patient Blood Type O Positive 5 Antibody Screen NEGATIVE 5 Urinalysis Profile 01/18/2017 Urine Color Yellow Urine Appearance Clear Urine Specific [place] 1.006 Low 1.010-1.030 Urine pH 7.0 5-9 Urine Urobilinogen Negative Negative Urine Ketones Negative Negative Urine Protein Negative Negative Urine Leukocytes Negative Negative Urine Blood Negative Negative * * Negative 6 Urine Nitrite Negative Negative Urine Bilirubin Negative Negative Urine Glucose Negative Negative Urine Culture And 01/18/2017 Urine Culture SEE RESULT BELOW 7 Sensitivities Comp Metabolic Panel 01/15/2017 Sodium 127 mmol/L Low 133-145 Potassium 3.6 mmol/L 3.5-5.0 Chloride 90 mmol/L Low 101-111 Co2 Carbon Dioxide 31 mmol/L 22-32 Anion Gap 6 mmol/L 2-11 Glucose 104 mg/dL High 70-100 Blood Urea Nitrogen 16 mg/dL 6-24 Creatinine 0.79 mg/dL 0.51-0.95 BUN/Creatinine Ratio 20.3 High 8-20 Calcium 9.5 mg/dL 8.6-10.3 Total Protein 6.4 g/dL 6.4-8.9 Albumin 3.9 g/dL 3.2-5.2 Globulin 2.5 g/dL 2-4 Albumin/Globulin Ratio 1.6 1-3 Total Bilirubin 0.50 mg/dL 0.2-1.0 Alkaline Phosphatase 60 U/L 34-104 Alt 11 U/L 7-52 Ast 18 U/L 13-39 Egfr Non- 69.2 >60 Egfr 89.0 >60 8 Laboratory test finding 01/15/2017 TSH (Thyroid Stim Horm) 1.78 mcIU/mL 0.34-5.60 CBC Auto Diff 01/15/2017 White Blood Count 4.9 10^3/uL 3.5-10.8 Red Blood Count 4.20 10^6/uL 4.0-5.4 Hemoglobin 12.1 g/dL 12.0-16.0 Hematocrit 36 % 35-47 Mean Corpuscular Volume 87 fL 80-97 Mean Corpuscular Hemoglobin 29 pg 27-31 Mean Corpuscular HGB Conc 33 g/dL 31-36 Red Cell Distribution Width 15 % 10.5-15 Platelet Count 233 10^3/uL 150-450 Mean Platelet Volume 7 um3 Low 7.4-10.4 Abs Neutrophils 3.2 10^3/uL 1.5-7.7 Abs Lymphocytes 1.1 10^3/uL 1.0-4.8 Abs Monocytes 0.5 10^3/uL 0-0.8 Abs Eosinophils 0 10^3/uL 0-0.6 Abs Basophils 0 10^3/uL 0-0.2 Abs Nucleated RBC 0 10^3/uL Granulocyte % 65.3 % 38-83 Lymphocyte % 23.3 % Low 25-47 Monocyte % 9.7 % High 1-9 Eosinophil % 0.9 % 0-6 Basophil % 0.8 % 0-2 Nucleated Red Blood Cells % 0 Inr/Protime 01/15/2017 Inr 0.99 0.89-1.11 Laboratory test finding 12/04/2016 Vitamin D Total 25(Oh) 54.0 ng/mL High 30-50 Basic Metabolic Panel 11/28/2016 Sodium 133 mmol/L 133-145 Potassium 3.5 mmol/L 3.5-5.0 Chloride 95 mmol/L Low 101-111 Co2 Carbon Dioxide 32 mmol/L 22-32 Anion Gap 6 mmol/L 2-11 Glucose 72 mg/dL 70-100 Blood Urea Nitrogen 20 mg/dL 6-24 Creatinine 0.84 mg/dL 0.51-0.95 BUN/Creatinine Ratio 23.8 High 8-20 Calcium 9.4 mg/dL 8.6-10.3 Egfr Non- 64.4 >60 Egfr 82.9 >60 9 Basic Metabolic Panel 10/15/2016 Sodium 133 mmol/L 133-145 Potassium 3.8 mmol/L 3.5-5.0 Chloride 97 mmol/L Low 101-111 Co2 Carbon Dioxide 32 mmol/L 22-32 Anion Gap 4 mmol/L 2-11 Glucose 80 mg/dL 70-100 Blood Urea Nitrogen 17 mg/dL 6-24 Creatinine 1.16 mg/dL High 0.51-0.95 BUN/Creatinine Ratio 14.7 8-20 Calcium 9.4 mg/dL 8.6-10.3 Egfr Non- 44.4 >60 Egfr 57.1 >60 10 CBC Auto Diff 03/19/2016 White Blood Count 3.5 10^3/uL 3.5-10.8 Red Blood Count 4.23 10^6/uL 4.0-5.4 Hemoglobin 12.3 g/dL 12.0-16.0 Hematocrit 37 % 35-47 Mean Corpuscular Volume 87 fL 80-97 Mean Corpuscular Hemoglobin 29 pg 27-31 Mean Corpuscular HGB Conc 34 g/dL 31-36 Red Cell Distribution Width 15 % 10.5-15 Platelet Count 281 10^3/uL 150-450 Mean Platelet Volume 7 um3 Low 7.4-10.4 Abs Neutrophils 1.6 10^3/uL 1.5-7.7 Abs Lymphocytes 1.1 10^3/uL 1.0-4.8 Abs Monocytes 0.6 10^3/uL 0-0.8 Abs Eosinophils 0.2 10^3/uL 0-0.6 Abs Basophils 0 10^3/uL 0-0.2 Abs Nucleated RBC 0.01 10^3/uL Granulocyte % 46.0 % 38-83 Lymphocyte % 30.6 % 25-47 Monocyte % 18.1 % High 1-9 Eosinophil % 4.3 % 0-6 Basophil % 1.0 % 0-2 Nucleated Red Blood Cells % 0.3 Comp Metabolic Panel 03/19/2016 Sodium 131 mmol/L Low 133-145 Potassium 4.1 mmol/L 3.5-5.0 Chloride 95 mmol/L Low 101-111 Co2 Carbon Dioxide 31 mmol/L 22-32 Anion Gap 5 mmol/L 2-11 Glucose 85 mg/dL 70-100 Blood Urea Nitrogen 13 mg/dL 6-24 Creatinine 0.82 mg/dL 0.51-0.95 BUN/Creatinine Ratio 15.9 8-20 Calcium 9.5 mg/dL 8.6-10.3 Total Protein 6.5 g/dL 6.4-8.9 Albumin 3.8 g/dL 3.2-5.2 Globulin 2.7 g/dL 2-4 Albumin/Globulin Ratio 1.4 1-3 Total Bilirubin 0.40 mg/dL 0.2-1.0 Alkaline Phosphatase 68 U/L 34-104 Alt 9 U/L 7-52 Ast 16 U/L 13-39 Egfr Non- 66.4 >60 Egfr 85.4 >60 11 Basic Metabolic Panel 09/05/2015 Sodium 130 mmol/L Low 133-145 Potassium 4.0 mmol/L 3.5-5.0 Chloride 94 mmol/L Low 101-111 Co2 Carbon Dioxide 30 mmol/L 22-32 Anion Gap 6 mmol/L 2-11 Glucose 91 mg/dL 70-100 Blood Urea Nitrogen 17 mg/dL 6-24 Creatinine 0.91 mg/dL 0.51-0.95 BUN/Creatinine Ratio 18.7 8-20 Calcium 9.4 mg/dL 8.6-10.3 Egfr Non- 58.9 >60 Egfr 75.7 >60 12 CBC Auto Diff 08/08/2015 White Blood Count 3.0 10^3/uL Low 3.5-10.8 Red Blood Count 4.21 10^6/uL 4.0-5.4 Hemoglobin 12.8 g/dL 12.0-16.0 Hematocrit 38 % 35-47 Mean Corpuscular Volume 90 fL 80-97 Mean Corpuscular Hemoglobin 31 pg 27-31 Mean Corpuscular HGB Conc 34 g/dL 31-36 Red Cell Distribution Width 14 % 10.5-15 Platelet Count 248 10^3/uL 150-450 Mean Platelet Volume 7 um3 Low 7.4-10.4 Abs Neutrophils 1.3 10^3/uL Low 1.5-7.7 Abs Lymphocytes 0.9 10^3/uL Low 1.0-4.8 Abs Monocytes 0.6 10^3/uL 0-0.8 Abs Eosinophils 0.1 10^3/uL 0-0.6 Abs Basophils 0 10^3/uL 0-0.2 Abs Nucleated RBC 0 10^3/uL Granulocyte % 44.6 % 38-83 Lymphocyte % 30.9 % 25-47 Monocyte % 20.5 % High 1-9 Eosinophil % 2.7 % 0-6 Basophil % 1.3 % 0-2 Nucleated Red Blood Cells % 0.1 Basic Metabolic Panel 08/08/2015 Sodium 128 mmol/L Low 133-145 Potassium 4.0 mmol/L 3.5-5.0 Chloride 91 mmol/L Low 101-111 Co2 Carbon Dioxide 31 mmol/L 22-32 Anion Gap 6 mmol/L 2-11 Glucose 98 mg/dL 70-100 Blood Urea Nitrogen 15 mg/dL 6-24 Creatinine 0.85 mg/dL 0.51-0.95 BUN/Creatinine Ratio 17.6 8-20 Calcium 9.8 mg/dL 8.6-10.3 Egfr Non- 63.7 >60 Egfr 81.9 >60 13 Lipid Profile (Trig/Chol/HDL) 01/03/2015 Triglycerides 72 mg/dL 14 Cholesterol 158 mg/dL 15 HDL Cholesterol 51.6 mg/dL 16 LDL Cholesterol 92 mg/dL 17 Comp Metabolic Panel 01/03/2015 Sodium 130 mmol/L Low 133-145 Potassium 4.0 mmol/L 3.5-5.0 Chloride 94 mmol/L Low 101-111 Co2 Carbon Dioxide 31 mmol/L 22-32 Anion Gap 5 mmol/L 2-11 Glucose 92 mg/dL 70-100 Blood Urea Nitrogen 19 mg/dL 6-24 Creatinine 0.86 mg/dL 0.51-0.95 BUN/Creatinine Ratio 22.1 High 8-20 Calcium 9.5 mg/dL 8.6-10.3 Total Protein 6.5 g/dL 6.4-8.9 Albumin 4.1 g/dL 3.2-5.2 Globulin 2.4 g/dL 2-4 Albumin/Globulin Ratio 1.7 1-3 Total Bilirubin 0.60 mg/dL 0.2-1.0 Alkaline Phosphatase 70 U/L 34-104 Alt 10 U/L 7-52 Ast 17 U/L 13-39 Egfr Non- 63.0 >60 Egfr 81.0 >60 18 Urine Culture And Sensitivities 09/29/2014 Urine Culture (SEE NOTE) 19 Urinalysis Profile 09/29/2014 Urine Color Yellow Urine Appearance Clear Urine Specific [place] 1.013 1.010-1.030 Urine pH 7.0 5-9 Urine Urobilinogen Negative Negative Urine Ketones Negative Negative Urine Protein Negative Negative Urine Leukocytes Negative Negative Urine Blood Negative Negative * * Negative 20 Urine Nitrite Negative Negative Urine Bilirubin Negative Negative Urine Glucose Negative Negative Ua Routine 09/23/2014 Ua Specific [place] 1.005 Ua PH 6.5 Ua Color yellow Ua Appera cloudy Ua WBC Pos Ua Protein neg Ua Glucose neg Ua Ketones neg Ua Bilirubin neg Ua Urobilinogen neg Ua Nitrite neg Ua Occult Blood neg Urine Culture And Sensitivities 09/23/2014 Urine Culture (SEE NOTE) 21 Basic Metabolic Panel 08/17/2014 Sodium 129 mmol/L Low 133-145 Potassium 4.1 mmol/L 3.5-5.0 Chloride 92 mmol/L Low 101-111 Co2 Carbon Dioxide 31 mmol/L 22-32 Anion Gap 6 mmol/L 2-11 Glucose 94 mg/dL 70-100 Blood Urea Nitrogen 19 mg/dL 6-24 Creatinine 0.93 mg/dL 0.51-0.95 BUN/Creatinine Ratio 20.4 High 8-20 Calcium 9.6 mg/dL 8.6-10.3 Egfr Non- 57.6 >60 Egfr 74.0 >60 22 Laboratory test finding 08/17/2014 Vitamin B12 1151 pg/mL High 180-914 23 TSH (Thyroid Stimulating Horm) 2.10 IU/mL 0.34-5.60 CBC Auto Diff 08/17/2014 White Blood Count 4.1 10^3/uL Low 4.8-10.8 Red Blood Count 4.17 10^6/uL 4.0-5.4 Hemoglobin 12.8 g/dL 12.0-16.0 Hematocrit 38 % 35-47 Mean Corpuscular Volume 91 fL 80-97 Mean Corpuscular Hemoglobin 31 pg 27-31 Mean Corpuscular HGB Conc 34 g/dL 31-36 Red Cell Distribution Width 14 % 10.5-15 Platelet Count 221 10^3/uL 150-450 Mean Platelet Volume 8 um3 7.4-10.4 Abs Neutrophils 2.1 10^3/uL 1.5-7.7 Abs Lymphocytes 1.0 10^3/uL 1.0-4.8 Abs Monocytes 0.7 10^3/uL 0-0.8 Abs Eosinophils 0.2 10^3/uL 0-0.6 Abs Basophils 0 10^3/uL 0-0.2 Abs Nucleated RBC 0 10^3/uL Granulocyte % 52.2 % 38-83 Lymphocyte % 24.4 % Low 25-47 Monocyte % 17.1 % High 1-9 Eosinophil % 5.3 % 0-6 Basophil % 1.0 % 0-2 Nucleated Red Blood Cells % 0 Lipid Profile (Trig/Chol/HDL) 02/26/2014 Triglycerides 78 mg/dL 24, 25 Cholesterol 151 mg/dL 24, 26 HDL Cholesterol 52.8 mg/dL 24, 27 LDL Cholesterol 83 mg/dL 24, 28 Comp Metabolic Panel 02/26/2014 Sodium 129 mmol/L Low 133-145 24 Potassium 4.2 mmol/L 3.7-5.6 24 Chloride 93 mmol/L Low 101-111 24 Co2 Carbon Dioxide 32 mmol/L 22-32 24 Anion Gap 4 mmol/L 2-11 24 Glucose 94 mg/dL 70-100 24 Blood Urea Nitrogen 16 mg/dL 6-24 24 Creatinine 0.88 mg/dL 0.51-0.95 24 BUN/Creatinine Ratio 18.2 8-20 24 Calcium 9.6 mg/dL 8.6-10.3 24 Total Protein 6.8 g/dL 6.4-8.9 24 Albumin 4.1 g/dL 3.2-5.2 24 Globulin 2.7 g/dL 2-4 24 Albumin/Globulin Ratio 1.5 1-3 24 Total Bilirubin 0.60 mg/dL 0.2-1.0 24 Alkaline Phosphatase 59 U/L 34-104 24 Alt 12 U/L 7-52 24 Ast 20 U/L 13-39 24 Egfr Non- 61.5 >60 24 Egfr 79.1 >60 24, 29 1 Because ethnic data is not always readily available, this report includes an eGFR for both -Americans and non- Americans. The National Kidney Disease Education Program (NKDEP) does not endorse the use of the MDRD equation for patients that are not between the ages of 18 and 70, are , have extremes of body size, muscle mass, or nutritional status, or are non- or non-. According to the National Kidney Foundation, irrespective of diagnosis, the stage of the disease is based on the level of kidney function: Stage Description GFR(mL/min/1.73 m(2)) 1 Kidney damage with normal or decreased GFR 90 2 Kidney damage with mild decrease in GFR 60-89 3 Moderate decrease in GFR 30-59 4 Severe decrease in GFR 15-29 5 Kidney failure <15 (or dialysis) 2 Acute inflammation: >10.00 3 [facility] Severe Sepsis and Septic Shock Management Bundle Measure requires all lactic acids initially measuring >2.0 mmol/L be repeated. 4 Because ethnic data is not always readily available, this report includes an eGFR for both -Americans and non- Americans. The National Kidney Disease Education Program (NKDEP) does not endorse the use of the MDRD equation for patients that are not between the ages of 18 and 70, are , have extremes of body size, muscle mass, or nutritional status, or are non- or non-. According to the National Kidney Foundation, irrespective of diagnosis, the stage of the disease is based on the level of kidney function: Stage Description GFR(mL/min/1.73 m(2)) 1 Kidney damage with normal or decreased GFR 90 2 Kidney damage with mild decrease in GFR 60-89 3 Moderate decrease in GFR 30-59 4 Severe decrease in GFR 15-29 5 Kidney failure <15 (or dialysis) 5 VALGUS DEFORMITY, NOT ELSEWHERE CLASSIFIED, RIGHT 6 *Ascorbic acid is present which may interfere with detection of blood. 7 SEE RESULT BELOW Name: TAMI KYLE : [address]: Freda Souza MD Acct: [id number] Unit: [id number] AGE: 86 Location: [facility] Re01/18/17 SEX: F Status: REG REF SPEC: [id number] LIN: 01/18/17-[address]: Freda Souza MD REQ: [id number] RECD: 01/18/17 STATUS: COMP _ SOURCE: URINE SPDESC: ORDERED: Urine Culture COMMENTS: [id number] Urine Source: Random Procedure Result Reported Site Urine Culture Final 01/19/17- 1609 ML No growth of clinically significant organisms * ML - [facility] (PSC[facility]) . END OF REPORT * ML=Testing performed at Main Lab DEPARTMENT OF PATHOLOGY, [address] [place] [address] Og Lorenzo M.D. Director [facility] # [id number] 8 Because ethnic data is not always readily available, this report includes an eGFR for both -Americans and non- Americans. The National Kidney Disease Education Program (NKDEP) does not endorse the use of the MDRD equation for patients that are not between the ages of 18 and 70, are , have extremes of body size, muscle mass, or nutritional status, or are non- or non-. According to the National Kidney Foundation, irrespective of diagnosis, the stage of the disease is based on the level of kidney function: Stage Description GFR(mL/min/1.73 m(2)) 1 Kidney damage with normal or decreased GFR 90 2 Kidney damage with mild decrease in GFR 60-89 3 Moderate decrease in GFR 30-59 4 Severe decrease in GFR 15-29 5 Kidney failure <15 (or dialysis) 9 Because ethnic data is not always readily available, this report includes an eGFR for both -Americans and non- Americans. The National Kidney Disease Education Program (NKDEP) does not endorse the use of the MDRD equation for patients that are not between the ages of 18 and 70, are , have extremes of body size, muscle mass, or nutritional status, or are non- or non-. According to the National Kidney Foundation, irrespective of diagnosis, the stage of the disease is based on the level of kidney function: Stage Description GFR(mL/min/1.73 m(2)) 1 Kidney damage with normal or decreased GFR 90 2 Kidney damage with mild decrease in GFR 60-89 3 Moderate decrease in GFR 30-59 4 Severe decrease in GFR 15-29 5 Kidney failure <15 (or dialysis) 10 Because ethnic data is not always readily available, this report includes an eGFR for both -Americans and non- Americans. The National Kidney Disease Education Program (NKDEP) does not endorse the use of the MDRD equation for patients that are not between the ages of 18 and 70, are , have extremes of body size, muscle mass, or nutritional status, or are non- or non-. According to the National Kidney Foundation, irrespective of diagnosis, the stage of the disease is based on the level of kidney function: Stage Description GFR(mL/min/1.73 m(2)) 1 Kidney damage with normal or decreased GFR 90 2 Kidney damage with mild decrease in GFR 60-89 3 Moderate decrease in GFR 30-59 4 Severe decrease in GFR 15-29 5 Kidney failure <15 (or dialysis) 11 Because ethnic data is not always readily available, this report includes an eGFR for both -Americans and non- Americans. The National Kidney Disease Education Program (NKDEP) does not endorse the use of the MDRD equation for patients that are not between the ages of 18 and 70, are , have extremes of body size, muscle mass, or nutritional status, or are non- or non-. According to the National Kidney Foundation, irrespective of diagnosis, the stage of the disease is based on the level of kidney function: Stage Description GFR(mL/min/1.73 m(2)) 1 Kidney damage with normal or decreased GFR 90 2 Kidney damage with mild decrease in GFR 60-89 3 Moderate decrease in GFR 30-59 4 Severe decrease in GFR 15-29 5 Kidney failure <15 (or dialysis) 12 Because ethnic data is not always readily available, this report includes an eGFR for both -Americans and non- Americans. The National Kidney Disease Education Program (NKDEP) does not endorse the use of the MDRD equation for patients that are not between the ages of 18 and 70, are , have extremes of body size, muscle mass, or nutritional status, or are non- or non-. According to the National Kidney Foundation, irrespective of diagnosis, the stage of the disease is based on the level of kidney function: Stage Description GFR(mL/min/1.73 m(2)) 1 Kidney damage with normal or decreased GFR 90 2 Kidney damage with mild decrease in GFR 60-89 3 Moderate decrease in GFR 30-59 4 Severe decrease in GFR 15-29 5 Kidney failure <15 (or dialysis) 13 Because ethnic data is not always readily available, this report includes an eGFR for both -Americans and non- Americans. The National Kidney Disease Education Program (NKDEP) does not endorse the use of the MDRD equation for patients that are not between the ages of 18 and 70, are , have extremes of body size, muscle mass, or nutritional status, or are non- or non-. According to the National Kidney Foundation, irrespective of diagnosis, the stage of the disease is based on the level of kidney function: Stage Description GFR(mL/min/1.73 m(2)) 1 Kidney damage with normal or decreased GFR 90 2 Kidney damage with mild decrease in GFR 60-89 3 Moderate decrease in GFR 30-59 4 Severe decrease in GFR 15-29 5 Kidney failure <15 (or dialysis) 14 Desirable <150 Borderline high 150-199 High 200-499 Very High >500 15 Desirable <200 Borderline high 200-239 High >239 16 Low <40 Desirable: 40-60 High: >60 17 Desirable: <100 mg/dL Near Optimal: 100-129 mg/dL Borderline High: 130-159 mg/dL High: 160-189 mg/dL Very High: >189 mg/dL 18 Because ethnic data is not always readily available, this report includes an eGFR for both -Americans and non- Americans. The National Kidney Disease Education Program (NKDEP) does not endorse the use of the MDRD equation for patients that are not between the ages of 18 and 70, are , have extremes of body size, muscle mass, or nutritional status, or are non- or non-. According to the National Kidney Foundation, irrespective of diagnosis, the stage of the disease is based on the level of kidney function: Stage Description GFR(mL/min/1.73 m(2)) 1 Kidney damage with normal or decreased GFR 90 2 Kidney damage with mild decrease in GFR 60-89 3 Moderate decrease in GFR 30-59 4 Severe decrease in GFR 15-29 5 Kidney failure <15 (or dialysis) 19 RUN DATE: 10/01/14 [facility] LIVE PAGE 1 RUN TIME: [address] [place], [place] [address] Specimen Inquiry Name: TAMI KYLE Justine : [address]: Mookie Cm III, MD Acct: [id number] Unit: [id number] AGE: 84 Location: [facility] Re09/29/14 SEX: F Status: REG REF SPEC: [id number] LIN: 09/29/[address]: Mookie Cm III, MD REQ: [id number] RECD: 09/29/14 STATUS: COMP _ SOURCE: URINE SPDESC: ORDERED: Urine Culture QUERIES: Provider Requisition # [id number] Urine Source: Clean Catch Procedure Result Verified Site Urine Culture Final 10/01/14- 1023 L No Growth Day 2 (<1,000 CFU/mL) END OF REPORT * ML=Testing performed at Main Lab DEPARTMENT OF PATHOLOGY, [facility] [employer] [place], [place] [address] Og Lorenzo M.D. Director [facility] # [id number] 20 *Ascorbic acid is present which may interfere with detection of blood. 21 RUN DATE: 09/26/14 [facility] LIVE PAGE 1 RUN TIME: [address] [facility] [address] [place], [place] [address] Specimen Inquiry Name: TAMI KYLE : [address]: Mookie Cm III, MD Acct: [id number] Unit: [id number] AGE: 84 Location: [facility] Re09/23/14 SEX: F Status: REG REF SPEC: [id number] LIN: 09/23/14-1447 [facility] DR: Mookie Cm III, MD REQ: [id number] RECD: 09/23/14 STATUS: COMP _ SOURCE: URINE SPDESC: ORDERED: Urine Culture QUERIES: Provider Requisition # [id number] Procedure Result Verified Site Urine Culture Final 09/26/14- 926 ML Organism 1 AEROCOCCUS SPECIES [place] Count 75-100,000 (Many) CFU/ML Aerococcus isolates are too fastidious for routine susceptibility studies. Aerococcus are usually susceptible to penicillin, amoxicillin, piperacillin, cefipime, rifampin and vancomycin. Moderate to good activity occurs with the quinolones, tetracyclines and erythromycin. ([employer] Textbook of Diagnostic Microbiology 6th Ed. 2006, p. 705-6.) END OF REPORT * ML=Testing performed at Main Lab DEPARTMENT OF PATHOLOGY, [address] [place] [address] Og Lorenzo M.D. Director [facility] # [id number] 22 Because ethnic data is not always readily available, this report includes an eGFR for both -Americans and non- Americans. The National Kidney Disease Education Program (NKDEP) does not endorse the use of the MDRD equation for patients that are not between the ages of 18 and 70, are , have extremes of body size, muscle mass, or nutritional status, or are non- or non-. According to the National Kidney Foundation, irrespective of diagnosis, the stage of the disease is based on the level of kidney function: Stage Description GFR(mL/min/1.73 m(2)) 1 Kidney damage with normal or decreased GFR 90 2 Kidney damage with mild decrease in GFR 60-89 3 Moderate decrease in GFR 30-59 4 Severe decrease in GFR 15-29 5 Kidney failure <15 (or dialysis) 23 Normal Range 180 to 914 Indeterminate Range 145 to 180 Deficient Range <145 24 PT IS FASTING 25 Desirable <150 Borderline high 150-199 High 200-499 Very High >500 26 Desirable <200 Borderline high 200-239 High >239 27 Low <40 Desirable: 40-60 High: >60 28 Desirable <100 Near Optimal 100-129 Borderline high 130-159 High 160-189 Very High >189 29 Because ethnic data is not always readily available, this report includes an eGFR for both -Americans and non- Americans. The National Kidney Disease Education Program (NKDEP) does not endorse the use of the MDRD equation for patients that are not between the ages of 18 and 70, are , have extremes of body size, muscle mass, or nutritional status, or are non- or non-. According to the National Kidney Foundation, irrespective of diagnosis, the stage of the disease is based on the level of kidney function: Stage Description GFR(mL/min/1.73 m(2)) 1 Kidney damage with normal or decreased GFR 90 2 Kidney damage with mild decrease in GFR 60-89 3 Moderate decrease in GFR 30-59 4 Severe decrease in GFR 15-29 5 Kidney failure <15 (or dialysis) Procedures Date CPT Code Description Status 10/08/2017 Mammogram Completed 06/27/2017 48654 Holter Monitor Review (24 hr)dr strong & alaina Completed only 06/25/2017 28763 ECG Monitor/Recording W/Visual Superimposition Scanning Completed 06/13/2017 52581 ECHO Stress Test Incl Perf Contiuous ekg Monitoring Completed W/Phys Superv 06/03/2017 65728 EKG Tracing & Interpretation Completed 02/05/2017 32899 TKR Total Knee Replacement Completed 02/05/2017 37810 TKR Total Knee Replacement Completed 02/05/2017 11381 TKR Total Knee Replacement Completed 10/03/2016 Mammogram Completed 10/03/2016 Bone Mineral Density Test Completed 07/18/2016 98262 Inject/Drain Joint/Bursa Major Completed 2016 25029 Inject Tendon Sheath Or Ligament Aponeurosis Eg Plantar Completed Fascia 10/03/2015 Mammogram Completed 08/19/2015 23794 Inject/Drain Joint/Bursa Major Completed 02/28/2015 97855 Inject/Drain Joint/Bursa Major Completed 12/06/2014 49065 Inject/Drain Joint/Bursa Major Completed 09/29/2014 Bone Mineral Density Test Completed 09/29/2014 Mammogram Completed 09/28/2013 Mammogram Completed 08/05/2013 61075 EKG Tracing & Interpretation Completed 04/07/2013 Colonoscopy Completed 09/28/2011 Bone Mineral Density Test Completed Encounters Type Date Location Provider CPT E/M Dx Office Visit 10/08/2017 2:40p [facility] Freda Souza 72619 I10 - Ritika Gonzalez L29.8 Office Visit 09/10/2017 10:00a [facility] Freda Souza M.D. 93685 I10 - Ritika R51 Office Visit 07/04/2017 10:40a [facility] Freda Souza 77776 J30.9 - Ritika Gonzalez Office Visit 06/03/2017 10:40a [facility] Freda Souza 43757 R53.83 - Ritika Gonzalez J30.9 R07.89 Office Visit 02/05/2017 10:38a [facility], Mio Hoffman.Sherrie 52908 Z96.659 Hospitalists I10 Office Visit 01/18/2017 11:20a [facility] Freda Souza 86764 Z01.818 Medicine - Ritika Gonzalez M17.11 I10 Office Visit 01/03/2017 10:45a [facility] Dalton Hoffman M.D. 82179 M77.42 Of C.M.A. Office Visit 12/20/2016 1:00p [facility] Freda Souza 32319 I10 - Ritika Gonzalez R53.83 Office Visit 12/12/2016 10:15a [facility] Of Gabby Moon M.D. 02989 M25.561 C.M.A. M25.461 M17.11 M21.061 Office Visit 11/19/2016 2:20p [facility] Freda Souza 50834 I10 - Ritika Gonzalez Office Visit 09/06/2016 9:20a [facility] Freda Souza 43108 I10 - Ritika Gonzalez Office Visit 09/04/2016 10:40a [facility] [place] [address] R60.9 - Gary Office Visit 08/17/2016 3:20p [facility] Freda Souza 26043 R05 - Ritika Gonzalez I10 J30.9 Office Visit 07/18/2016 10:30a [facility] Of Gabby Moon M.D. 31124 M25.561 C.M.Deshaun M25.461 M17.11 Office Visit 07/17/2016 4:40p [facility] Freda Souza 42690 R05 - Ritika Gonzalez Office Visit 2016 10:30a [facility] Dalton Hoffman, 71056 M25.571 Of Blanca Gonzalez Office Visit 06/11/2016 3:40p [facility] Freda Souza 59912 J18.9 - Ritika Gonzalez M25.571 M25.561 Office Visit 05/10/2016 2:40p [facility] Freda Souza 97181 J18.9 - Ritika Gonzalez Office Visit 05/03/2016 4:20p [facility] Freda Souza 46827 J18.9 - Ritika Gonzalez R60.0 Office Visit 05/01/2016 9:00a [facility] Cheyanne Souza M.D. 17793 R05 - Ritika Office Visit 03/26/2016 11:20a [facility] Freda Souza M.D. 57476 I10 - Ritika H53.9 M54.31 Office Visit 02/20/2016 9:45a [facility] Of Gabby Moon M.D. 90155 M70.61 C.Venita M70.62 M25.551 M25.552 Office Visit 11/25/2015 10:20a [facility] Cheyanne Souza M.D. 72158 I10 - Ritika K59.00 M79.604 Office Visit 10/11/2015 10:40a [facility] Cheyanne Souza M.D. 23465 I10 - Gary Office Visit 09/12/2015 11:40a [facility] Freda Souza M.D. 24018 I10 - Ritika Z85.3 Office Visit 09/01/2015 10:30a [facility] Dalton Hoffman 95404 M19.072 Of C.MMelissa Gonzalez Office Visit 08/11/2015 2:40p [facility] Freda Souza 51613 Z00.00 - Ritika Gonzalez I10 H54.50 D70.9 Office Visit 06/29/2015 2:00p [facility] Of Dalton Hoffman, 96459 M19.072 Blanca Gonzalez M19.071 Office Visit 05/25/2015 3:40p [facility] Dalton Hoffman 06376 M19.072 Of Blanca Gonzalez Office Visit 02/28/2015 1:00p [facility] Gabby Moon M.D. 58810 726.5 Of C.M.ALeydi Office Visit 01/10/2015 2:00p [facility] Freda Souza 45074 401.1 - Ritika Gonzalez 599.0 719.47 V13.02 Office Visit 12/27/2014 2:00p [facility] Of Gabby Moon M.D. 64489 726.5 C.M.A. 845.00 719.47 Office Visit 12/06/2014 1:20p [facility] Gabby Moon M.D. 50459 719.47 C.M.A. 845.00 719.46 719.45 726.5 Office Visit 11/30/2014 2:00p [facility] [place] [address] 719.47 Gary 845.00 Office Visit 11/16/2014 4:00p [facility] Jaimee Rebolledo N.Sherrie 85235 719.47 - Gary 719.46 719.45 Office Visit 09/23/2014 2:20p [facility] [place]m 17235 788.41 - Ritika Gonzalez Office Visit 08/10/2014 3:00p [facility] Freda Souza 69738 V70.0 - Ritika Gonzalez 311 401.1 627.9 782.0 Office Visit 04/08/2014 1:00p [facility] Freda Souza 06688 401.1 - Ritika Gonzalez 723.1 Office Visit 03/04/2014 9:40a [facility] Freda Souza 16586 719.46 - Ritika Gonzalez 311 401.1 Office Visit 12/16/2013 2:40p [facility] - Briana Gay M.D. 31876 729.5 Gary Office Visit 11/10/2013 11:40a [facility] - Briana Gay M.D. 24340 719.41 Gary 729.5 Office Visit 09/09/2013 2:40p [facility] - Briana Gay M.D. 95393 401.1 Gary Office Visit 08/05/2013 2:00p [facility] - Briana Gay M.D. 84287 401.1 Gary 782.0 454.9 Plan of Care Future Appointment(s):12/19/2017 4:00 pm - Freda Souza M.D. at [facility] - Ddxrnzlin68/20/2018 4:20 pm - Freda Souza M.D. at [facility]11/08/2017 - Freda Souza M.D.I10 Essential (primary) hypertensionComments:Stay on the amlodipineIncrease the hydrochlorothiazide - increase to 25 mg (2 pills)Call me in 2 weeks - let me know what your readings are on the 2 hydrochlorothiazide pills per day Please check blood test For weight:Cut out sweetsFollow up:4-6 [id number] Headache
[2017-12-01] MEDS ORDERED: Labetalol IV* 5 MG/ML 20 ML VIAL IV PUSH ONE (23:59)
[2017-12-02] MEDS ORDERED: Ondansetron INJ* 2 MG/ML VIAL IV ONE
[2017-12-02] MEDS ORDERED: Morphine VIAL* 4 MG/ML VIAL (1 ml vial) IV ONE
[2017-12-02 00:17] LABS: ABS Basophils 0 10^3/ul (0-0.2); ABS Eosinophils 0.8 10^3/ul (0-0.6); ABS Lymphocytes 0.8 10^3/ul (1.0-4.8); ABS Nucleated RBC 0 10^3/ul; Hematocrit 36 % (35-47); Hemoglobin 12.7 g/dl (12.0-16.0); Lymphocyte % 6.9 % (25-47); Mean Corpuscular HGB Conc 35 g/dl (31-36); Mean Corpuscular Hemoglobin 29 pg (27-31); Mean Corpuscular Volume 84 fL (80-97); Nucleated Red Blood Cells % 0; Platelet Count 167 10^3/ul (150-450); Red Blood Count 4.36 10^6/ul (4.0-5.4); Red Cell Distribution Width 15 % (10.5-15); White Blood Count 11.7 10^3/ul (3.5-10.8)
[2017-12-02 00:40] LABS: EGFR Non-African American 61.7 (>60)
[2017-12-02] MEDS ORDERED: Acetaminophen TAB* 325 MG PO ONE (00:49)
[2017-12-02] MEDS ORDERED: Potassium Chlor TAB* 20 MEQ TAB.ER PO ONE ×2 (00:57→15:00)
[2017-12-02] MEDS ORDERED: KCL 10 MEQ/50 ML IVPREMIX* 10 MEQ/50 ML BAG IV ONE (00:57)
[2017-12-02] MEDS ORDERED: ValACYclovir (*) 500 MG TAB PO SCH (01:00)
[2017-12-02] MEDS ORDERED: Acyclovir SUSP(*) 200 MG/5 ML UDC PO ONE (01:38)
[2017-12-02] MEDS ORDERED: Magnesium Sulfate 2 GM IV* 2 GM/50 ML BAG IVPB ONE (01:52)
[2017-12-02] MEDS ORDERED: NS 0.9% 250 ML* 250 ML IV ONE (02:27)
--- NOTE | 2017-12-02 02:48 | ED ---
Karyn Cortez Rebecca, scribed for Hoang Ibarra MD on 12/01/17 at 2353 . Complex/Multi-Sys Presentation - HPI Summary HPI Summary: Pt is an 87 y/o F BIBA who presents to ED c/o JOSEPH and neck pain. Pt reports JOSEPH has been chronic intermittently. Ranks neck pain as 02/04. Additionally notes generalized malaise and rash on the left chest. Rash described as initially pruritic, though not it does not itch and is not painful. Denies vomiting, photophobia. Pt is a poor historian. - History Of Current Complaint Chief Complaint: EDNeckComplaint Time Seen by Provider: 12/01/17 23:36 Hx Obtained From: Patient Onset/Duration: Still Present Severity Initially: Moderate - 02/04 Location: Pain At: - Posterior neck and JOSEPH Aggravating Factor(s): Nothing Alleviating Factor(s): Nothing Associated Signs And Symptoms: Positive: Headache, Other - Generalized malaise - Allergies/Home Medications Allergies/Adverse Reactions: Allergies Allergy/AdvReac Type Severity Reaction Status Date / Time anastrozole Allergy Rash Verified 12/01/17 23:43 aspirin Allergy Anaphylatic Verified 12/01/17 23:43 Shock codeine Allergy Nausea And Verified 12/01/17 23:42 Vomiting lisinopril Allergy Swelling Verified 12/01/17 23:43 Of Face,Lips,& Throat ENVIRONMENTAL/SEASONAL Allergy Severe ASTHMATIC Uncoded 02/05/17 07:41 ALLERGY REACTIONS ENVIRONMENTAL Allergy Unknown Uncoded 02/05/17 07:41 Reaction Details PURE PEPPERMINT-ALL MINTS Allergy SHORT OF Uncoded 02/05/17 07:41 BREATH ONIONS AdvReac GI Upset Uncoded 02/05/17 07:41 PMH/Surg Hx/FS Hx/Imm Hx Endocrine/Hematology History: Denies: Hx Diabetes Cardiovascular History: Reports: Hx Hypertension Denies: Hx Pacemaker/ICD Respiratory History: Reports: Hx Asthma - pneumonia Jul 2016, triggered asthma, Other Respiratory Problems/Disorders - post nasal drip currently Denies: Hx Chronic Obstructive Pulmonary Disease (COPD) History: Reports: Other Problems/Disorders - HX OF BLADDER INFECTIONS, NONE RECENTLY Denies: Hx Dialysis, Hx Renal Disease Musculoskeletal History: Reports: Hx Arthritis, Other Musculoskeletal History - OCCASIONAL LOW BACK PAINS Denies: Hx Back Problems, Hx Osteoporosis Sensory History: Reports: Hx Cataracts - BILATERAL, Hx Contacts or Glasses, Hx Hearing Aid Opthamlomology History: Reports: Hx Cataracts - BILATERAL, Hx Contacts or Glasses Neurological History: Reports: Other Neuro Impairments/Disorders - POOR BALANCE OVER LAST 6 MONTH Denies: Hx Dementia, Hx Seizures Psychiatric History: Reports: Hx Depression - mild, pt taking medication Denies: Hx Panic Disorder - Cancer History Cancer Type, Location and Year: Breast Cancer 2011 Hx Chemotherapy: Yes Hx Radiation Therapy: Yes - Surgical History Surgery Procedure, Year, and Place: 1958 RIGHT KIDNEY PYLELOPLASTY, [place]2011 LEFT LUMPECTOMY WITH LYMPH NODE REMOVAL, [id number]'S OR 70'S SEPTOPLASTY, [place], [place] COLONOSCOPY, [facility] [place], BENIGN TUMOR UPPER LEFT LEG REMOVAL Hx Anesthesia Reactions: No Infectious Disease History: No Infectious Disease History: Denies: Traveled Outside the [place] in Last 30 Days - Family History Known Family History: Positive: Other - Yes- Anestesia reaction (Sister) - Social History Alcohol Use: None Substance Use Type: Reports: None Smoking Status (MU): Never Smoked Tobacco Review of Systems Positive: Other - Generalized malaise Negative: Photophobia Negative: Vomiting Positive: Other - Neck pain Positive: Rash Positive: Headache All Other Systems Reviewed And Are Negative: Yes Physical Exam - Summary Physical Exam Summary: VITAL SIGNS: Reviewed. GENERAL: ~Patient is a well-developed and nourished female who is lying comfortable in the stretcher. Patient is not in any acute respiratory distress. HEAD AND FACE: No signs of trauma. No ecchymosis, hematomas or skull depressions. No sinus tenderness. EYES: PERRLA, EOMI x 2, No injected conjunctiva, no nystagmus. EARS: Hearing grossly intact. Ear canals and tympanic membranes are within normal limits. MOUTH: Oropharynx within normal limits. NECK: Supple, trachea is midline, no adenopathy, no JVD, no carotid bruit, no c- spine tenderness, neck with full ROM. CHEST: Symmetric, no tenderness at palpation LUNGS: Clear to auscultation bilaterally. No wheezing or crackles. CVS: Regular rate and rhythm, S1 and S2 present, no murmurs or gallops appreciated. ABDOMEN: Soft, non-tender. No signs of distention. No rebound no guarding, and no masses palpated. Bowel sounds are normal. EXTREMITIES: FROM in all major joints, no edema, no cyanosis or clubbing. NEURO: Alert and oriented x 3. No acute neurological deficits. Speech is normal and follows commands. SKIN: Dry and warm. She has a fine, vesicular rash along the left upper region of the chest that moves along dermatomes and is consistent with shingles. Triage Information Reviewed: Yes Vital Signs On Initial Exam: Initial Vitals Temp Pulse Resp BP Pulse Ox 98.6 F 78 16 183/96 99 12/01/17 23:40 12/01/17 23:40 12/01/17 23:40 12/01/17 23:40 12/01/17 23:40 Vital Signs Reviewed: Yes - [place] Coma Scale [place]ow Coma Scale Comments: 15 Diagnostics - Vital Signs Vital Signs Temp Pulse Resp BP Pulse Ox 12/01/17 23:40 98.6 F 78 16 183/96 99 - Laboratory Result Diagrams: 12/02/17 00:10 12/02/17 00:10 Lab Statement: Any lab studies that have been ordered have been reviewed, and results considered in the medical decision making process. - Radiology CXR Xray Interpretation: No Acute Changes - No acute process. Pending official report. Radiology Interpretation Completed By: ED Physician - CT CT Sinuses CT Interpretation Completed By: Radiologist - Minimal mucoperiosteal thickening paranasal sinuses. Small mucus retention cyst right maxillary sinus. Middle ear cavities and mastoid cells clear. Degenerative changes temporomandibular joints. Mandible incompletely seen. Spondylosis upper cervical spine. ED physician reviewed this radiology report. Pending official report. CT Brain CT Interpretation Completed By: Radiologist - No acute brain parenchymal abnormality. No hemorrhage, mass, or acute territorial infarct. Age-related involutional changes and chronic small vesel ischemic changes. Clear visualized paranasal sinuses. Visualized mastoid air cells clear. ED physician reviewed this radiology report. Pending official report. CT C-Spine CT Interpretation Completed By: Radiologist - No acute fracture or malalignment. Multilevel spondylosis. Probably hemangioma C7. Scarring left lung apex. ED physician reviewed this radiology report. Pending official report. - EKG 0112 Cardiac Rate: NL - 83 bpm EKG Rhythm: Sinus Rhythm EKG Interpretation: RBBB Re-Evaluation - Re-Evaluation First Eval Re-Evaluation Time: 02:08 Comment: Discussed results and plan to admit. Complex Multi-Symp Course/Dx Assessment/Plan: Pt is an 87 y/o F BIBA who presents to ED c/o JOSEPH and neck pain. Pt reports JOSEPH has been chronic intermittently. Ranks neck pain as 7/10. Additionally notes generalized malaise and rash on the left chest. Rash described as initially pruritic, though not it does not itch and is not painful. Denies vomiting, photophobia. Pt is a poor historian. Blood work and UA were done. Sodium of 115, potassium of 2.1, WBC of 11.7. CXR reveals no acute findings. CT sinuses, brain and C-spine reveal no acute findings. EKG is sinus rhythm with RBBB. In the ED course, pt received Tylenol, Zovirax, trandate , magnesium sulfate, morphine, zofra, and potassium chloride. Discussed care of pt with Dr. Hills who accepts pt for admission. Pt will be admitted with Dx of hyponatremia, hypokalemia, and shingles. Allergies noted. - Diagnoses Provider Diagnoses: Hyponatremia, Hypokalemia, Shingles - Physician Notifications Discussed Care Of Patient With: Rachel Hills Time Discussed With Above Provider: 02:12 Instructed by Provider To: Other - Accepts pt for admission Discharge - Sign-Out/Discharge Documenting (check all that apply): Discharge/Admit/Transfer - Admit - Discharge Plan Condition: Fair Disposition: ADMITTED TO [facility] Referrals: Freda Souza MD [Primary Care Provider] - The documentation as recorded by the Karyn grey Rebecca accurately reflects the service I personally performed and the decisions made by , Hoang Ibarra MD.
[2017-12-02] MEDS ORDERED: Al Hydrox/Mg Hydrox/Simet LIQ* 30 ML UDC PO PRN (02:49)
[2017-12-02] MEDS ORDERED: Docusate CAP* 100 MG PO PRN (02:49)
[2017-12-02] MEDS ORDERED: Acetaminophen TAB* 325 MG PO PRN (02:49)
[2017-12-02] MEDS ORDERED: Ondansetron 40 MG VIAL* 2 MG/ML 20 ML VIAL IV PRN (02:49)
[2017-12-02] MEDS ORDERED: Senna TAB PO PRN (02:49)
[2017-12-02] MEDS ORDERED: Polyethylene Glycol 3350* 17 GM PACKET PO PRN (02:53)
[2017-12-02 05:37] LABS: ABS Basophils 0 10^3/ul (0-0.2); ABS Eosinophils 0.7 10^3/ul (0-0.6); ABS Lymphocytes 0.9 10^3/ul (1.0-4.8); ABS Monocytes 0.9 10^3/ul (0-0.8); ABS Neutrophils 8.1 10^3/ul (1.5-7.7); ABS Nucleated RBC 0 10^3/ul; Eosinophil % 6.6 % (0-6); Hematocrit 35 % (35-47); Hemoglobin 12.2 g/dl (12.0-16.0); Lymphocyte % 8.3 % (25-47); Mean Corpuscular HGB Conc 35 g/dl (31-36); Mean Corpuscular Hemoglobin 29 pg (27-31); Mean Corpuscular Volume 84 fL (80-97); Mean Platelet Volume 7.5 um3 (7.4-10.4); Nucleated Red Blood Cells % 0; Platelet Count 178 10^3/ul (150-450); Red Blood Count 4.21 10^6/ul (4.0-5.4); Red Cell Distribution Width 15 % (10.5-15); White Blood Count 10.6 10^3/ul (3.5-10.8)
[2017-12-02] MEDS ORDERED: KCL 20 MEQ/100 ML IVPREMIX* 20 MEQ/100 ML BAG IV SCH (06:00)
[2017-12-02] MEDS: Heparin VIAL(*) 5000 UNITS/ML VIAL (FIVE THOUSAND) SUBCUT SCH ×3 (06:06→21:44)
[2017-12-02] MEDS: NS 0.9% w/ 40 Meq KCL 1000 ML* 1,000 ML IV SCH ×3 (06:08→21:14)
[2017-12-02] MEDS ORDERED: Potassium Chloride IV* 40 MEQ in NS 0.9% 250 ML* 250 ML IVPB ONE (06:30)
--- NOTE | 2017-12-02 06:36 | HP ---
HISTORY AND PHYSICAL: DATE OF ADMISSION: 12/02/17 TIME OF EVALUATION: 0300. PRIMARY CARE PHYSICIAN: Freda Souza M.D. CHIEF COMPLAINT: Feeling lousy with a headache. HISTORY OF PRESENT ILLNESS: This is an 87-year-old female with past medical history of hypertension who presents to the emergency room and complaining of a frontal headache. She states on the 11/29/17 she began feeling lousy and she states she is very exhausted, unable to eat anything. She has been trying to drink lot of water. She has had no nausea or vomiting. She has had episodes of diarrhea on 11/30/17 several times. She states she also had a temperature of 102 and she has had this persistent frontal headache. She denies any vision changes. She is feeling sort of out of it. She states she went to the cigarette package examiner recently to get her allergy shot. They saw a rash on her chest. She states it was itchy initially. They said to put hydrocortisone on it. She has not been putting hydrocortisone. It is not painful. It does not itch her any longer. She is not able to tell me if the rash has gotten worse and she is unclear as to when exactly she went to the cigarette package examiner. She still feels out of it , and her ability to answer questions is challenging. She states she has been on an antibiotics for the past a weeks for a sinus infection, but she does not feel like she is getting better. She denies any congestion. No cough. No shortness of breath. No chest pain. No abdominal pain. No urinary symptoms. Otherwise, review of systems is negative. She states she was recently started on potassium and she thinks maybe an allergy medication or antibiotic from the cigarette package examiner, but she is not clear. In the emergency room, the patient had labs, imaging. She was given potassium chloride IV p.o., magnesium sulfate, Zovirax has been ordered for her and Tylenol; was referred to the hospitalist service for further evaluation. PAST MEDICAL HISTORY: 1. History of breast cancer. 2. History of hypertension. 3. History of shingles on her face in the past. 4. History of hyponatremia. Patient denies any respiratory issues. Denies using any sort of inhaler though it is listed in her medication list. PAST SURGICAL HISTORY: 1. Right total knee arthroplasty. 2. History of lumpectomy. 3. Cataract removal. 4. Urethral stricture surgery. 5. No surgery of pyeloplasty. MEDICATIONS: Per med rec. 1. The patient confirms that she is not on Coumadin. 2. Multivitamin AREDS one cap p.o. b.i.d. 3. Hydrochlorothiazide 12.5 mg daily. 4. Amlodipine 5 mg daily, 5 mg in the evening. 5. Sodium chloride 5% ophthalmic ointment applied to both eyes at bedtime. 6. Zoloft 50 mg at bedtime. 7. MiraLAX 17 g daily as needed. 8. Clayton-3 of 1000 mg p.o. b.i.d. 9. Multivitamin p.o. daily in the morning. 10. Milk of mag as needed. 11. L-lysine 500 mg monthly as needed. 12. Xyzal 5 mg in the evening. 13. Hydroxyzine 25 mg as needed. 14. Flonase one spray both nares b.i.d. 15. Colace 100 mg p.o. b.i.d. 16. Tylenol PM 1 tab at bedtime as needed. 17. Refresh Optive eye drops 1 drop both eyes t.i.d. 18. Calcium carbonate. 19. Vitamin D one tab p.o. in the morning. 20. Symbicort 160/4.5 two puffs inhaled b.i.d. 21. Tylenol 650 mg every 4 hours as needed. ALLERGIES: 1. ANASTROZOLE. 2. ASPIRIN. 3. CODEINE. 4. LISINOPRIL. 5. ENVIRONMENTAL AND SEASONAL ALLERGIES. 6. ONION. 7. PEPPERMINT. FAMILY HISTORY: Reviewed and noncontributory. SOCIAL HISTORY: The patient lives at the [facility]. She denies any tobacco , alcohol, or illicit drug use. Her healthcare proxy is her brother, Jonah Kyle. Her code status is full code. REVIEW OF SYSTEMS: A 14-point review of systems as mentioned in the HPI, otherwise negative. PHYSICAL EXAMINATION GENERAL: In no acute distress, resting comfortably. VITAL SIGNS: Temp 98.6, pulse rate 71, respiratory rate 16, oxygen saturation 96% on room air, and blood pressure 161/80. HEENT: Head is normocephalic. Pupils are equal and reactive. Anicteric. Oropharynx: Mucous membranes are moist. NECK: Supple. No lymphadenopathy. No nuchal rigidity. She has frontal tenderness. RESPIRATORY: Diminished breath sounds. No wheezes, rhonchi, or rales. CARDIAC: Regular rate and rhythm. Soft systolic murmur heard throughout. ABDOMEN: Soft, nontender, and nondistended. EXTREMITIES: No clubbing, cyanosis, or edema. 1+ DPs. NEUROLOGIC: Alert and oriented x3. No gross focal neurologic deficits. DERM: She has a scattered maculopapular rash in her upper torso more prominently on the left side. No vesicles or scabbing is seen or appreciated. LABORATORY DATA: White count 11.7, hemoglobin 12.7, hematocrit 36, and platelets 167. INR is 1.0. Sodium 117, potassium 2.2, chloride 81, bicarbonate 26, BUN 25, creatinine 0.87, glucose 112. Serum osmolality is 260. Magnesium is 1.6. CRP 84. RADIOGRAPHIC DATA: Head CT and CT of the cervical spine: No acute fracture or malalignment, multilevel spondylosis, probable hemangioma at C7, scarring at left lung apex. Head CT without contrast: No acute brain parenchymal abnormality, no hemorrhage, mass, or acute territorial infarct related involutional changes, clear visualized paranasal sinuses, visualized mastoid air cells clear. EKG shows normal sinus rhythm with PACs. ASSESSMENT: This is an 87-year-old female with past medical history of hypertension who presents to the emergency room with not feeling well with a frontal headache. Headache and feeling unwell. Assessment: It is unclear the etiology of her headache. Regarding not feeling well, this could be related to her hyponatremia, hypokalemia, and hypomagnesemia. She had a febrile illness. There was a concern in the emergency room that the patient has shingles, herpes zoster on her chest. I do not appreciate this to be consistent with herpes zoster. She does have a slightly elevated white count, but no fever and she has a frontal headache. Plan: We will do a fluid challenge and repeat her BMP. I suspect that she is dry and this is not SIADH. We will continue to replete her potassium and her magnesium and repeat her labs. We will check blood cultures and if she does spike a temperature, I think an LP is wanted. We will follow up on her urinalysis as well. We will hold off an antibiotics for now in the setting of no fever and no source, hold off on resuming acyclovir as well. We will check urine osmoles and urine sodium. CHRONIC MEDICAL PROBLEMS: 1. Her med rec does not seem to be accurate as the patient states she is not on Coumadin. 2. For her hypertension. Her hydrochlorothiazide could be contributing to her hyponatremia. We will hold this for now. Continue her on her amlodipine. 3. Depression. We will continue on her Zoloft, although this could also be contributing to her hyponatremia. Though I suspect this is volume depletion 4. FEN. Place the patient on a regular diet. 5. DVT prophylaxis. Patient scores high risk; place her on heparin subcu t.i.d. 6. Code status. Full code. PATIENT TIME: Greater than 60 minutes spent doing the history and physical, more than half the time spent with patient contact. [id number]/CPS #: [id number] ARIANE
--- NOTE | 2017-12-02 07:56 | RAD ---
INDICATION: Chest pain COMPARISON: Over 60 TECHNIQUE: An AP portable view obtained at 0150 hours is submitted. FINDINGS: Bones/Soft Tissues: There are no acute bony findings. Cardiomediastinal: There is interval increase in size of the cardiac silhouette and interstitium appears more prominent consistent with mild interstitial congestion. Lungs: There are no focal infiltrates. Pleura: There are no pleural effusions. Other: None IMPRESSION: MILD INTERSTITIAL CONGESTION. SUGGEST FOLLOW-UP.
[2017-12-02] MEDS ORDERED: Magnesium Sulf 4 GM/100 ML IV* 4,000 MG/100 ML BAG IVPB ONE (08:00)
--- NOTE | 2017-12-02 08:01 | RAD ---
Indication: Headaches, neck pain. CT of the cervical spine was obtained in the axial plane. Sagittal and coronal reconstructed images were obtained. The vertebral bodies appear normal in height. The skull base demonstrates no fracture. Mastoid air cells are well aerated. The C1 ring is intact. Vertebral bodies appear normal in height. No fracture is noted. There is disc space narrowing at C2-C3, C3-C4, C4-C5, C5-C6 and C6-C7 with dorsal and ventral osteophyte formation without evidence of spinal stenosis. Facet arthropathy is noted at these levels. IMPRESSION: Multilevel degenerative disc disease without evidence of fracture of the cervical spine.
--- NOTE | 2017-12-02 08:02 | RAD ---
Indication: Headache, shingles. Altered mental status. Comparison: No relevant prior exams available on the [facility] PACS for comparison. Technique: Noncontrast CT vertex of skull through foramen magnum. Report: Mild prominence of the cerebral sulci. Unremarkable ventricles and basal cisterns. Decreased density in the periventricular and subcortical white matter while non-specific is most likely due to chronic microangiopathy. Negative for ngo matter white matter obscuration, intra or extra-axial hemorrhage, or mass effect. Unremarkable orbital contents. No suspicious abnormality of the calvarium or skull base. Negative for paranasal sinus fluid levels. Mild mucosal thickening at the maxillary sinuses. Clear mastoid air spaces. Unremarkable scalp. IMPRESSION: Mild involutional change and stigmata of chronic small vessel ischemic disease. No acute intracranial process evident.
--- NOTE | 2017-12-02 08:03 | RAD ---
INDICATION: Headache. COMPARISON: Comparison is made with a prior study from December 11, 2002. TECHNIQUE: Contiguous axial sections of the axial images of the sinuses were obtained and reconstructed in the coronal and sagittal planes. FINDINGS: The frontal sinuses appear clear. There is mild mucosal thickening within the maxillary, ethmoid and sphenoid sinuses measuring up to 2-3 mm in thickness. There is a 1 cm nodular density present along the roof of the right maxillary sinus most consistent with a mucous retention cyst or polyp. The ostiomeatal complexes appear patent on both sides. There is mild deviation of the nasal septum toward the left side. The nasal passageways were otherwise clear. The mastoid air cells and middle ear cavities appear clear. There is mild to moderate bilateral osteoarthritic change in the temporomandibular joints. Moderate cervical spondylosis is noted in the upper visualized portion of the cervical spine. IMPRESSION: 1. MILD MUCOSAL THICKENING WITHIN THE PARANASAL SINUSES DESCRIBED. 2. SMALL MUCOUS RETENTION CYST OR POLYP WITHIN THE RIGHT MAXILLARY SINUS.
[2017-12-02] MEDS ORDERED: amLODIPine TAB* 5 MG PO SCH (09:00)
--- NOTE | 2017-12-02 13:18 | PN ---
Progress Note - Progress Note Date of Service: 12/02/17 Note: CRITICAL CARE MEDICINE Date: 12/02/17 Time: 1245 SUBJECTIVE: Patient seen and examined. PHYSICAL EXAM: Vital Signs: Reviewed. Neurologic: awake, communicating, nonfocal HEENT: pupils equal. Sclera anicteric. Trachea midline. Cardiovascular: S1 S2 Respiratory: clear Abdomen: Soft, nt. No r/g/r. Extremities: Warm. Access: piv LABS: Reviewed. IMAGING: Reviewed. MEDICATIONS: Reviewed. ASSESSMENT: 87 F Hyponatremia - very good about diet control avoiding Na and on hctz and high water intake. component of siadh less likely other then chronic ailment Mild metabolic encphalopathy sec to above hypomagnesium - intake lacking? hypokalemia PLAN: doing fine. f/u labs for slow corrections. had cl deficit. calcium not low so should equilibrate. NSS should be adequate for na correction as she is chronic components as well. f /u bmp MS improving po diet. oob. social work f/u Supportive and preventative care as ordered. SUP: ppi VTE prophylaxis: heparin Disposition: ICU Code Status: Full Critical Care Time: 45min FLeydi Harvey DO
[2017-12-02 13:31] LABS: EGFR Non-African American 78.1 (>60)
[2017-12-02] MEDS ORDERED: Warfarin TAB(*) 2 MG PO SCH ×2 (17:00)
[2017-12-02] MEDS: amLODIPine TAB* 5 MG PO SCH (19:20)
[2017-12-02] MEDS: Cetirizine* 10 MG TAB PO SCH (19:20)
[2017-12-02] MEDS ORDERED: Sertraline* 25 MG TAB PO SCH (21:00)
[2017-12-02] MEDS: Sertraline* 25 MG TAB PO SCH (21:44)
[2017-12-02] MEDS: Sodium Chloride 5% OPTH OINT* 3.5 gm TUBE BOTH EYES SCH (21:45)
[2017-12-02 22:20] LABS: Urine Appearance Clear; Urine Blood 1+ (Negative); Urine Color Straw; Urine Ketones Negative (Negative); Urine Protein Negative (Negative); Urine Specific Gravity 1.004 (1.010-1.030); Urine Urobilinogen Negative (Negative)
[2017-12-03] MEDS: NS 0.9% w/ 40 Meq KCL 1000 ML* 1,000 ML IV SCH (03:59)
[2017-12-03] MEDS: Heparin VIAL(*) 5000 UNITS/ML VIAL (FIVE THOUSAND) SUBCUT SCH ×3 (05:59→21:53)
[2017-12-03 06:17] LABS: ABS Basophils 0 10^3/ul (0-0.2); ABS Eosinophils 0.6 10^3/ul (0-0.6); ABS Lymphocytes 1.2 10^3/ul (1.0-4.8); ABS Monocytes 0.8 10^3/ul (0-0.8); ABS Neutrophils 5.3 10^3/ul (1.5-7.7); ABS Nucleated RBC 0 10^3/ul; Eosinophil % 7.3 % (0-6); Hematocrit 33 % (35-47); Hemoglobin 11.3 g/dl (12.0-16.0); Lymphocyte % 15.2 % (25-47); Mean Corpuscular HGB Conc 35 g/dl (31-36); Mean Corpuscular Hemoglobin 29 pg (27-31); Mean Corpuscular Volume 84 fL (80-97); Mean Platelet Volume 7.3 um3 (7.4-10.4); Nucleated Red Blood Cells % 0; Platelet Count 177 10^3/ul (150-450); Red Blood Count 3.88 10^6/ul (4.0-5.4); Red Cell Distribution Width 15 % (10.5-15); White Blood Count 7.9 10^3/ul (3.5-10.8)
[2017-12-03] MEDS ORDERED: NS 0.9% w/ 40 Meq KCL 1000 ML* 1,000 ML IV SCH (09:51)
--- NOTE | 2017-12-03 12:12 | PN ---
Progress Note - Progress Note Date of Service: 12/03/17 Note: CRITICAL CARE MEDICINE Date: 12/03/17 Time: 900 SUBJECTIVE: Patient seen and examined. PHYSICAL EXAM: Vital Signs: Reviewed. Neurologic: awake, communicating, nonfocal HEENT: pupils equal. Sclera anicteric. Trachea midline. Cardiovascular: S1 S2 Respiratory: clear Abdomen: Soft, nt. No r/g/r. Extremities: Warm. Access: piv LABS: Reviewed. IMAGING: Reviewed. MEDICATIONS: Reviewed. ASSESSMENT: 87 F Hyponatremia - post H2O intake, low na diet and hctz - improving with ns. Mild metabolic encphalopathy sec to above - improving hypomagnesium - improved. hypokalemia - improved PLAN: doing fine. dec ns today and likely off [employer] po. oob. ambulate. f/u bmp MS well and social f/u. oupt meds. Supportive and preventative care as ordered. VTE prophylaxis: heparin Disposition: awaiting floor bed Code Status: Full Critical Care Time: 25min FLeydi Harvey DO
[2017-12-03] MEDS: amLODIPine TAB* 5 MG PO SCH (19:04)
[2017-12-03] MEDS: Cetirizine* 10 MG TAB PO SCH (19:04)
[2017-12-03] MEDS: Sertraline* 25 MG TAB PO SCH (21:53)
[2017-12-03] MEDS: Sodium Chloride 5% OPTH OINT* 3.5 gm TUBE BOTH EYES SCH (21:54)
[2017-12-04] MEDS: Heparin VIAL(*) 5000 UNITS/ML VIAL (FIVE THOUSAND) SUBCUT SCH (05:54)
[2017-12-04 08:48] VITALS: BP 147/80
[2017-12-04] MEDS ORDERED: Potassium Chlor TAB* 20 MEQ TAB.ER PO ONE (11:50)
--- NOTE | 2017-12-04 12:10 | PN ---
Subjective Date of Service: 12/04/17 Interval History: Patient seen and examined at bedside. Denies fever, chills, shortness of breath , chest discomfort, N/V/D. Pt states that she is no longer constipated. After being told that she could be discharged to home today, Pt started to complain of her head not feeling well, she is unable to really describe this. She states that she is not dizzy or lightheaded, but "heading that way". She denies a headache. Tele: Sinus rhythm, rate 50-90's. Family History: Unchanged from Admission Social History: Unchanged from Admission Past Medical History: Unchanged from Admission Objective Active Medications: Acetaminophen (Tylenol Tab*) 650 mg PO Q4H PRN Reason: FEVER/PAIN Al Hydrox/Mg Hydrox/Simethicone (Maalox Plus*) 30 ml PO Q6H PRN Reason: INDIGESTION Amlodipine Besylate (Norvasc Tab*) 5 mg PO QPM GINI Cetirizine HCl (Zyrtec*) 10 mg PO QPM GINI Docusate Sodium (Colace Cap*) 100 mg PO BID PRN Reason: CONSTIPATION Heparin Sodium (Porcine) (Heparin Vial(*)) 5,000 units SUBCUT Q8HR GINI Ondansetron HCl (Zofran Inj*) 4 mg IV Q4H PRN Reason: NAUSEA/VOMITING Polyethylene Glycol/Electrolytes (Miralax*) 17 gm PO DAILY PRN Reason: Constipation Senna (Senokot Tab*) 1 tab PO BID PRN Reason: CONSTIPATION Sertraline HCl (Zoloft*) 25 mg PO BEDTIME GINI Sodium Chloride (Hypertonic) ([place] 128- 5% Opth Oint*) 1 applic BOTH EYES BEDTIME GINI Vital Signs - 8 hr 12/04/17 12/04/17 12/04/17 05:00 06:00 07:00 Temperature Pulse Rate 61 64 60 Respiratory 16 17 17 Rate Blood Pressure (mmHg) O2 Sat by Pulse 94 95 97 Oximetry 12/04/17 12/04/17 12/04/17 07:52 08:00 08:21 Temperature 99.6 F Pulse Rate 62 64 Respiratory 17 22 Rate Blood Pressure 147/80 (mmHg) O2 Sat by Pulse 94 96 Oximetry Oxygen Devices in Use Now: None Appearance: NAD, sitting up in a chair Eyes: PERRLA Ears/Nose/Mouth/Throat: Mucous Membranes Moist Respiratory: Symmetrical Chest Expansion and Respiratory Effort, Clear to Auscultation Cardiovascular: NL Sounds; No Murmurs; No JVD, RRR Abdominal: NL Sounds; No Tenderness; No Distention Extremities: No Edema Skin: No Rash or Ulcers Neurological: Alert and Oriented x 3, NL Muscle Strength and Tone Lines/Tubes/Other Access: Clean, Dry and Intact Peripheral IV - site benign Nutrition: Taking PO's Result Diagrams: 12/03/17 05:55 12/04/17 05:25 Microbiology and Other Data: Microbiology 12/02/17 07:55 Aerobic Blood Culture - Preliminary Blood Venous No Growth Day 2 Anaerobic Blood Culture - Preliminary No Growth Day 2 12/02/17 05:00 Aerobic Blood Culture - Preliminary Blood Venous No Growth Day 2 Anaerobic Blood Culture - Preliminary No Growth Day 2 12/03/17 22:52 Nasal Screen MRSA (PCR)([facility]) - Final Nasal Mrsa Not Detected Assess/Plan/Problems-Billing Assessment: Ms. Kyle is an 87 yo female with PMH significant for HTN, breast CA and hyponatremia who presented to the hospital with complaints of not feeling well and a headache. - Patient Problems (1) Hyponatremia Code(s): E87.1 - HYPO-OSMOLALITY AND HYPONATREMIA SNOMED Code(s): 30888109 Comment: - Improving - With associated mild metabolic encephalopathy, improving - Mild hyponatremia chronically - Will stop NS and continue to hold HCTZ (2) Hypokalemia Code(s): E87.6 - HYPOKALEMIA SNOMED Code(s): 64528126 Comment: - Improving - Will give PO replacement today (3) Hypomagnesemia Code(s): E83.42 - HYPOMAGNESEMIA SNOMED Code(s): 612741941 Comment: - Received replacement and now resolved (4) Hypertension Code(s): I10 - ESSENTIAL (PRIMARY) HYPERTENSION SNOMED Code(s): 35005799 Comment: - Mostly normotensive, SBP 110-180's - Continue amlodipine and continue to hold HCTZ in setting of hyponatremia (5) Breast cancer Code(s): C50.919 - MALIGNANT NEOPLASM OF UNSP SITE OF UNSPECIFIED FEMALE BREAST SNOMED Code(s): 265073811 Comment: - Continue to follow with PCP (6) Depression Code(s): F32.9 - MAJOR DEPRESSIVE DISORDER, SINGLE EPISODE, UNSPECIFIED SNOMED Code(s): 35017627 Comment: - Continue Zoloft (7) DVT prophylaxis Code(s): ONB6370 - SNOMED Code(s): 909869306 (8) Full code status Code(s): Z78.9 - OTHER SPECIFIED HEALTH STATUS SNOMED Code(s): 527832022 Status and Disposition: Inpatient. Stable for discharge to home, will plan to discharge after lunch is she is feeling well.
--- NOTE | 2017-12-05 07:58 | DS ---
CC: Dr. Freda Souza * DISCHARGE SUMMARY: DATE OF ADMISSION: 12/02/17 DATE OF DISCHARGE: 12/04/17 ATTENDING PHYSICIAN: Donaldo Shah MD * (dictated by Kayla Huggins NP). PRIMARY CARE PROVIDER: Dr. Freda Souza PRIMARY DIAGNOSES: 1. Hyponatremia. 2. Mild metabolic encephalopathy, improving. 3. Hypokalemia. 4. Hypomagnesium, resolved. SECONDARY DIAGNOSES: 1. Hypertension. 2. Breast cancer. 3. Depression. STUDIES WHILE IN THE HOSPITAL: 1. Brain CT on 12/01/17. Radiologist's impression: Mild involutional change and stigmata of chronic small vessel ischemic disease. No acute intracranial process evident. 2. Spinal CT on 12/01/17. Radiologist's impression: Multilevel degenerative disk disease without evidence of fracture of the cervical spine. 3. Sinus CT on 12/01/17. Radiologist's impression: Mild mucosal thickening within paranasal sinus as described. Small mucous retention cyst or polyps within the right maxillary sinus. 4. Chest x-ray on 12/02/17. Radiologist's impression: Mild interstitial congestion. Suggest followup. DISCHARGE MEDICATIONS: Continued home medications: 1. Fluticasone 1 spray to both nares twice daily. 2. Zoloft 25 mg oral daily at bedtime. 3. Amlodipine 5 mg oral daily. 4. Lysine 500 mg oral monthly as needed for canker sores. 5. Refresh Optive eyedrops 1 drop to both eyes 3 times daily. 6. Sodium chloride 5% ophthalmic ointment apply to both eyes at bedtime. 7. Multivitamin 1 tablet oral twice daily. 8. Tylenol PM Extra Strength 1 tablet oral daily at bedtime as needed for sleep. 9. Multivitamin 1 tablet oral daily. 10. Calcium 600 plus D 600/400 mg 1 tablet oral daily. 11. Xyzal 5 mg oral every evening. 12. Symbicort 160/4.5 two puffs inhalation twice daily. 13. [place]-3 one tablet oral twice daily. 14. Acetaminophen 650 mg oral every 4 hours as needed for fever or pain. 15. Colace 100 mg oral twice daily. 16. Milk of magnesia 30 mL oral every 6 hours as needed for constipation. 17. MiraLAX 17 g oral daily as needed for constipation. Discontinued home medications: 1. Hydroxyzine. 2. Hydrochlorothiazide. HISTORY OF PRESENT ILLNESS/HOSPITAL COURSE: Ms. Kyle is an 87-year-old female with past medical history significant for hypertension, breast cancer and hyponatremia who presented to the emergency room complaining of a frontal headache. The patient stated that on 11/29/17, she began feeling lousy, feeling exhausted, unable to eat anything. She has been trying to drink a lot of water. She had had no nausea or vomiting. She had episodes of diarrhea on 12/13. She had a temperature of 102 with persistent frontal headache. She denies any visual changes. She went to see her speech coach who recently gave her an allergy shot. She saw a rash on her chest and was itching initially, used hydrocortisone on that, but then had stopped. Due to her symptoms, she presented to the emergency room for further evaluation. While in the emergency room, she was having difficulty answering questions. She reported being on antibiotics recently for a sinus infection. She received IV potassium chloride, magnesium, and she had a brain CT and a cervical spine CT showing no acute finding. The patient was found to have a sodium of 117, potassium 2.2, magnesium of 1.6. She had an EKG without acute findings and was referred to the hospitalist service for further evaluation. While in the hospital, the patient received IV hydration. It was suspected her hyponatremia was secondary to being on hydrochlorothiazide, eating a low sodium diet and drinking a lot of water. Her hydrochlorothiazide was held and her sodium improved. The patient continued to have hypokalemia that initially resolved and then had return of hypokalemia on the day of discharge. She received oral potassium replacement. She had hypomagnesemia that resolved with replacement. She has been mostly normotensive with her hydrochlorothiazide held and continued on her amlodipine. She also was felt to have a mild metabolic encephalopathy that was improving during her stay. Ms. Kyle is doing well and is ready for discharge today. Ms. Kyle is stable for discharge to home today. Vital signs are as follows : Vital Signs: Temperature 99.6, heart rate 64, respiratory rate 17, O2 sat 96 % on room air, blood pressure 142/80. DISCHARGE PLAN: Ms. Kyle will be discharged to home. ACTIVITY: As tolerated. DIET: She should be on regular diet. In regards to her hyponatremia, I recommend continuing to hold her hydrochlorothiazide. Her sertraline may also be contributing to this. Going forward, you may want to consider changing her antidepressant to another agent. In regards to the patient's hypertension, she has been hypertensive at times, but mostly normotensive during her stay. I recommend continue to hold her hydrochlorothiazide and continuing her amlodipine. If she does become more hypertensive, I recommend increasing her amlodipine and not restarting hydrochlorothiazide. The patient has been asked to return to the emergency room for any chest pain, shortness of breath. She has a followup appointment with her primary care provider, Dr. Souza, on 12/12/17 at 7:30 a.m. This is a summarized report of a complex medical history and hospital stay. For further details, please see the entire medical record. TIME SPENT: Time for this discharge was approximately 50 minutes, greater than half of that was spent with the patient, discussing discharge plans and instructions. CONDITION ON DISCHARGE: Stable. Reviewed by ANNE-MARIE GARIBAY 12/07/17 1929 [id number]/[facility] #: [id number] ARIANE
== END 2017-12-04 15:00 | disposition home or self-care (01) | DRG 640 ==
LOC: ED 23:25 → ICU 12-02 02:49
PROVIDERS: ADMIT Pediatrics; ATTEND Internal Medicine
DX: E87.1 Hypo-osmolality and hyponatremia (principal); G93.41 Metabolic encephalopathy; E87.6 Hypokalemia; E83.42 Hypomagnesemia; I10 Essential (primary) hypertension; F32.9 Major depressive disorder, single episode, unspecified; R51 Headache; Z85.3 Personal history of malignant neoplasm of breast; Z79.1 Long term (current) use of non-steroidal anti-inflammatories (NSAID); Z79.899 Other long term (current) drug therapy; Z88.6 Allergy status to analgesic agent; Z88.5 Allergy status to narcotic agent; Z88.8 Allergy status to other drugs, medicaments and biological substances; Z91.018 Allergy to other foods
CPT/HCPCS: 36415; 70450; 70486; 71045; 72125; 80048; 80053; 81003; 81015; 82436; 83735; 83930; 83935; 84100; 84132; 84133; 84300; 84443; 85025; 85610; 85730; 86140; 87040; 87641; 93005; 99285; A9270-GY; J1644; J3475; J3480